=== PATIENT | female | born 1935 | race Caucasian/White ===

== ENCOUNTER 2017-07-22 11:28 | Inpatient (IN) | payer MEDICARE ==
[~2017-07-22] VITALS: Ht 162.6 cm; Wt 48.5 kg
--- NOTE | 2017-07-22 11:28 | NUR ---
[id number] FROM [facility] FOR SYNCOPE, PT FELL FACE FIRST PER EMS REPORT. HEMATOMA NOTED ON FOREHEAD
[2017-07-22 12:20] LABS: BASOPHILS # (AUTO) 0.1 /CMM (0.0-0.2); BASOPHILS % (AUTO) 0.6 % (0.0-2.0); EOSINOPHILS # (AUTO) 0.1 /CMM (0.0-0.7); EOSINOPHILS % (AUTO) 0.9 % (0.0-6.0); HEMATOCRIT 34 % (33-45); HEMOGLOBIN 11.7 g/dL (11.5-14.8); LYMPHOCYTES # (AUTO) 1.3 /CMM (0.8-4.8); LYMPHOCYTES % (AUTO) 13.2 % (20.0-44.0); MEAN CORPUSCULAR HEMOGLOBIN 30 PG (26.0-33.0); MEAN CORPUSCULAR HGB CONC 34 g/dl (31.0-36.0); MEAN CORPUSCULAR VOLUME 89 fL (82-100); MONOCYTES # (AUTO) 0.5 /CMM (0.1-1.30); NEUTROPHILS # (AUTO) 7.8 /CMM (1.8-8.9); NEUTROPHILS % (AUTO) 80.3 % (43.0-81.0); PLATELET COUNT (AUTO) 481 /CMM (150-450); RED BLOOD CELL COUNT(AUTO) 3.88 MIL/uL (4.0-5.2); WHITE BLOOD COUNT (AUTO) 9.8 K/uL (4.3-11.0)
[2017-07-22 12:34] LABS: CALCIUM, SERUM 9.1 mg/dL (8.5-10.1); CARBON DIOXIDE 28 mmol/L (21-32); CHLORIDE 100 mmol/L (98-107); CREATININE 0.8 mg/dL (0.6-1.3); GLUCOSE 98 mg/dL (74-106); POTASSIUM 3.5 mmol/L (3.5-5.1); SODIUM SERUM 137 mmol/L (136-145); UREA NITROGEN, BLOOD 16 mg/dL (7-18)
[2017-07-22 12:35] LABS: INR 0.91 (0.87-1.13)
[2017-07-22 12:39] LABS: ALANINE AMINOTRANSFERASE 14 U/L (12-78); ALBUMIN 2.8 g/dL (3.4-5.0); ALKALINE PHOSPHATASE 88 U/L (46-116); ASPARTATE AMINOTRANSFERASE 17 U/L (15-37); BILIRUBIN,TOTAL 0.2 mg/dL (0.2-1.0); TOTAL PROTEIN, SERUM 8.1 g/dL (6.4-8.2); TROPONIN I < 0.017 ng/mL (0.00-0.056)
[2017-07-22] MEDS ORDERED: DEXT15DR6 OP (12:47)
[2017-07-22] MEDS ORDERED: CYAN10009 PO (12:47)
[2017-07-22] MEDS ORDERED: GABA-532 PO (12:47)
[2017-07-22] MEDS ORDERED: DOCU-141 PO (12:47)
[2017-07-22] MEDS ORDERED: CALC-883 PO (12:47)
[2017-07-22] MEDS ORDERED: SENN-167 PO (12:47)
[2017-07-22] MEDS ORDERED: MEMA1CAP3 PO (12:47)
[2017-07-22] MEDS ORDERED: LIDOCAINE 2% 20 ML MDV TP ONE (13:00)
[2017-07-22 14:00] VITALS: BP 142/69
--- NOTE | 2017-07-22 14:00 | NUR ---
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 WAS BROUGHT BY EMERGENCY DEPARTMENT IN A GURNEY. PT. A&OX2-3, AND FORGETFUL. BREATHING UNLABORED ON ROOM AIR. NO S/S OF ACUTE DISTRESS.
--- NOTE | 2017-07-22 14:11 | NUR ---
REPORT GIVEN TO TOMASZ HERNÁNDEZ FOR PHI
[2017-07-22] MEDS ORDERED: IV NS 0.9% 1,000 ML IV PRN (14:26)
[2017-07-22] MEDS ORDERED: MAGNESIUM HYDROXIDE 30 ML UDC PO PRN (14:30)
[2017-07-22] MEDS ORDERED: Z GUARD REMEDY 2 OZ OINT TP PRN (14:30)
[2017-07-22] MEDS ORDERED: ACETAMINOPHEN 325 MG TABLET PO PRN (14:30)
[2017-07-22] MEDS ORDERED: ONDANSETRON HCL/PF 4 MG/2 ML VIAL IVP PRN (14:30)
[2017-07-22] MEDS ORDERED: MAG HYDROX/AL HYDROX/SIMETH 30 ML UDC PO PRN (14:30)
[2017-07-22] MEDS ORDERED: CEFTRIAXONE 1GM BAG (ER ONLY) 1 GM/50 ML PIGGYBACK IV ONE (15:00)
[2017-07-22 15:59] LABS: IRON, SERUM 20 ug/dl (50-175); TOTAL IRON BINDING CAPACITY 259 ug/dl (250-450)
--- NOTE | 2017-07-22 16:00 | NUR ---
RN NOTES AZIZA CALLED FROM [facility], TO REPORT THAT PT. HAS A CONSERVATOR KAYLAN PEERZ PHONE NUMBER, . LUCIA'S CALL BACK NUMBER [phone].
[2017-07-22] MEDS: ENOXAPARIN SODIUM 40 MG/0.4 ML DISP.SYRIN SQ SCH (16:15)
[2017-07-22] MEDS: DOCUSATE SODIUM 100 MG CAPSULE PO SCH (18:24)
[2017-07-22] MEDS: MEMANTINE HCL 5 MG TABLET PO SCH (18:24)
--- NOTE | 2017-07-22 19:00 | NUR ---
COOK JELLY/CLOSING NOTES PT. IS IN BED A&OX2-3, AND FORGETFUL WITH A 1:1 SITTER AT BEDSIDE. TELE MONITOR READING SINUS RHYTHM 63 BPM. IV FLUIDS RUNNING AT 75 ML/HR. NO S/S OF ACUTE DISTRESS. BED IS IN LOWEST AND LOCKED POSITION. 2 SIDE RAILS UP, AND INSTRUCTED PT. TO USE CALL LIGHT FOR ASSISTANCE. ALL NEEDS MET. PT.'S EYE GLASSES ARE AT BEDSIDE. WILL ENDORSE REPORT TO NURSE.
[2017-07-22 19:04] LABS: APPEARANCE,URINE CLEAR (CLEAR); BILIRUBIN,URINE NEGATIVE (NEGATIVE); BLOOD, URINE TRACE-INTA Ery/uL (NEGATIVE); COLOR,URINE YELLOW (YELLOW); KETONES,URINE NEGATIVE (NEGATIVE); LEUKOCYTE ESTERASE ,URINE NEGATIVE (NEGATIVE); NITRITE, URINE NEGATIVE (NEGATIVE); PH,URINE 7.5 (5.0-8.0); PROTEIN,URINE NEGATIVE (NEGATIVE); UGLUCOSE NEGATIVE (NEGATIVE); UROBILINOGEN,URINE 0.2 EU/dL (0.2)
[2017-07-22 19:11] LABS: BACTERIA,URINE None seen /HPF (None Seen); RBC,URINE 0-2 /HPF (0-2); SQUAMOUS EPITHELIAL CELL,UR Few /HPF (None Seen); WBC,URINE 0-2 /HPF (0-3)
--- NOTE | 2017-07-22 19:30 | NUR ---
POPULATION HEALTH MANAGER NOTE RECEIVED PATIENT AWAKE, ALERT AND ORIENTED IN BED. DENIES ANY PAIN OR DISCOMFORT. SITTER AT BEDSIDE. IV SITE INTACT, WITH FLUIDS RUNNING ORDERED. BED LOCKED AND IN LOWEST POSITION.
[2017-07-22] MEDS: DONEPEZIL 5 MG TABLET PO SCH (21:39)
[2017-07-22] MEDS: HYDROCODONE/APAP 5/325MG 1 EACH TABLET PO PRN (21:39)
[2017-07-22 22:00] VITALS: BP 139/85
--- NOTE | 2017-07-23 07:30 | NUR ---
RN OPENING NOTES RECEIVED PATIENT IN BED, RESPONSIVE, A/O X2, FORGETFUL. NO ACUTE DISTRESS, NO SOB NOTED, DENIES PAIN OR DISCOMFORT. IV SITE INTACT AND PATENT. SITTER AT BEDSIDE FOR SAFETY. BED IN LOW LOCKED POSITION, SIDERAILS UPX2, SEMIFOWLERS, CALL LIGHT IN REACH. WILL CONTINUE TO MONITOR ACCORDINGLY.
[2017-07-23 07:41] LABS: BASOPHILS % (AUTO) 0.6 % (0.0-2.0); EOSINOPHILS % (AUTO) 0.6 % (0.0-6.0); HEMATOCRIT 31 % (33-45); HEMOGLOBIN 10.4 g/dL (11.5-14.8); LYMPHOCYTES # (AUTO) 1.2 /CMM (0.8-4.8); LYMPHOCYTES % (AUTO) 18.4 % (20.0-44.0); MEAN CORPUSCULAR HEMOGLOBIN 31 PG (26.0-33.0); MEAN CORPUSCULAR HGB CONC 34 g/dl (31.0-36.0); MEAN CORPUSCULAR VOLUME 91 fL (82-100); MONOCYTES # (AUTO) 0.5 /CMM (0.1-1.30); MONOCYTES % (AUTO) 7.4 % (2.0-12.0); NEUTROPHILS # (AUTO) 4.9 /CMM (1.8-8.9); PLATELET COUNT (AUTO) 393 /CMM (150-450); RDW COEFFICIENT OF VARIATION 13.1 (11.5-15.0); RED BLOOD CELL COUNT(AUTO) 3.39 MIL/uL (4.0-5.2); WHITE BLOOD COUNT (AUTO) 6.8 K/uL (4.3-11.0)
[2017-07-23 08:00] VITALS: BP 134/59
[2017-07-23 08:12] LABS: CHOLESTEROL 170 mg/dL (<200); HDL CHOLESTEROL 65 mg/dL (40-60); LDL 95 mg/dL (0-99); THYROID STIMULATING HORMONE 0.613 uIU/mL (0.358-3.74); TRIGLYCERIDES 81 mg/dL (30-150)
[2017-07-23 08:14] LABS: CALCIUM, SERUM 8.7 mg/dL (8.5-10.1); CARBON DIOXIDE 27 mmol/L (21-32); CHLORIDE 107 mmol/L (98-107); CREATININE 0.7 mg/dL (0.6-1.3); GLUCOSE 98 mg/dL (74-106); MAGNESIUM 2.4 mg/dL (1.8-2.4); POTASSIUM 3.9 mmol/L (3.5-5.1); SODIUM SERUM 141 mmol/L (136-145); UREA NITROGEN, BLOOD 13 mg/dL (7-18)
[2017-07-23] MEDS: SENNOSIDES 8.6 MG TABLET PO SCH (08:46)
[2017-07-23] MEDS: DOCUSATE SODIUM 100 MG CAPSULE PO SCH ×2 (08:46→16:28)
[2017-07-23] MEDS: MEMANTINE HCL 5 MG TABLET PO SCH ×2 (08:46→16:28)
[2017-07-23 09:44] LABS: TROPONIN I < 0.017 ng/mL (0.00-0.056)
[2017-07-23 09:58] LABS: THYROID STIMULATING HORMONE 0.633 uIU/mL (0.358-3.74)
[2017-07-23 16:00] VITALS: BP 140/72
[2017-07-23] MEDS: SOD FERRIC GLUC 125 MG in IV NS 0.9% 100 ML IV SCH (16:22)
--- NOTE | 2017-07-23 16:34 | NUR ---
RN NOTES SPOKE AND VERIFY WITH KAITY ERVIN FROM [facility], PATIENT IS FULL CODE. PATIENT HAS NEW CONSERVATOR, KAYLAN PEREZ [phone]. NOTIFIED CASE MGMT.
[2017-07-23] MEDS: IV NS 0.9% 1,000 ML IV PRN (16:37)
--- NOTE | 2017-07-23 19:20 | NUR ---
RN NOTES UNABLE TO GET ORTHOSTATICS TODAY. PATIENT KEPT REFUSING.
--- NOTE | 2017-07-23 19:30 | NUR ---
RN CLOSING NOTES PATIENT IN BED RESTING. NO ACUTE DISTRESS, NO SOB NOTED. NO S/S OF PAIN OR DISCOMFORT. ALL NEEDS ATTENDED AND PROVIDED. SITTER ON BEDSIDE FOR SAFETY. BED IN LOCKED, LOW POSITION, CALL LIGHT IN REACH. ENDORSED TO NIGHT RN FOR PHI.
[2017-07-23 20:00] VITALS: BP 124/65
[2017-07-23] MEDS: ENOXAPARIN SODIUM 40 MG/0.4 ML DISP.SYRIN SQ SCH (21:34)
[2017-07-23] MEDS: DONEPEZIL 5 MG TABLET PO SCH (21:35)
--- NOTE | 2017-07-23 22:14 | NUR ---
RN OPENING NOTES: RECEIVED PT FROM BETTY GUO IN BED WITH SITTER AT BEDSIDE. PT ASLEEP AT THIS TIME. PT HAS R AC #22G WITH NS AT 50ML/HR BEING INFUSED. CALL LIGHT WITHIN PT'S REACH. BED KEPT IN LOW, LOCKED POSITION, AND SIDE RAILS X 2UP. WILL CONTINUE TO MONITOR PT.
--- NOTE | 2017-07-23 22:35 | NUR ---
RN NOTES: ENDORSED TO ANNA. BETTY
--- NOTE | 2017-07-23 23:00 | NUR ---
PATIENT IS ASLEEP AT THIS TIME, SITTER AT THE BEDSIDE. VSS, AFEBRILE CONTINUE TO MONITOR
[2017-07-24] MEDS: HYDROCODONE/APAP 5/325MG 1 EACH TABLET PO PRN (03:53)
[2017-07-24 08:00] VITALS: BP 128/77
[2017-07-24] MEDS: SENNOSIDES 8.6 MG TABLET PO SCH (08:43)
[2017-07-24] MEDS: DOCUSATE SODIUM 100 MG CAPSULE PO SCH ×2 (08:43→18:35)
[2017-07-24] MEDS: MEMANTINE HCL 5 MG TABLET PO SCH ×2 (08:44→18:35)
[2017-07-24 09:00] VITALS: BP_SYST 100; BP_SYST 111; BP_SYST 120; BP_DIAS 60; BP_DIAS 63; BP_DIAS 77
--- NOTE | 2017-07-24 09:00 | NUR ---
RN NOTES PER DR NIESLEN, GET ORTHOSTATICS BP EVERY MORNING
[2017-07-24 09:03] LABS: BASOPHILS % (AUTO) 0.6 % (0.0-2.0); EOSINOPHILS # (AUTO) 0.1 /CMM (0.0-0.7); EOSINOPHILS % (AUTO) 1.2 % (0.0-6.0); HEMATOCRIT 32 % (33-45); HEMOGLOBIN 10.7 g/dL (11.5-14.8); LYMPHOCYTES # (AUTO) 1.3 /CMM (0.8-4.8); LYMPHOCYTES % (AUTO) 17.8 % (20.0-44.0); MEAN CORPUSCULAR HEMOGLOBIN 30 PG (26.0-33.0); MEAN CORPUSCULAR HGB CONC 34 g/dl (31.0-36.0); MEAN CORPUSCULAR VOLUME 89 fL (82-100); MONOCYTES # (AUTO) 0.5 /CMM (0.1-1.30); MONOCYTES % (AUTO) 6.4 % (2.0-12.0); NEUTROPHILS # (AUTO) 5.3 /CMM (1.8-8.9); PLATELET COUNT (AUTO) 418 /CMM (150-450); RDW COEFFICIENT OF VARIATION 12.1 (11.5-15.0); RED BLOOD CELL COUNT(AUTO) 3.55 MIL/uL (4.0-5.2); WHITE BLOOD COUNT (AUTO) 7.2 K/uL (4.3-11.0)
[2017-07-24 09:16] LABS: ALANINE AMINOTRANSFERASE 16 U/L (12-78); ALBUMIN 2.3 g/dL (3.4-5.0); ALKALINE PHOSPHATASE 73 U/L (46-116); ASPARTATE AMINOTRANSFERASE 15 U/L (15-37); BILIRUBIN,TOTAL 0.3 mg/dL (0.2-1.0); CALCIUM, SERUM 8.8 mg/dL (8.5-10.1); CARBON DIOXIDE 25 mmol/L (21-32); CHLORIDE 107 mmol/L (98-107); CREATININE 0.7 mg/dL (0.6-1.3); GLUCOSE 100 mg/dL (74-106); MAGNESIUM 2.3 mg/dL (1.8-2.4); PHOSPHORUS 3.3 mg/dL (2.5-4.9); SODIUM SERUM 142 mmol/L (136-145); TOTAL PROTEIN, SERUM 7.2 g/dL (6.4-8.2); UREA NITROGEN, BLOOD 18 mg/dL (7-18)
[2017-07-24 09:17] LABS: TROPONIN I < 0.017 ng/mL (0.00-0.056)
[2017-07-24] MEDS ORDERED: ERGOCALCIFEROL (VITAMIN D 2) 50,000 UNIT CAPSULE PO SCH (09:30)
[2017-07-24] MEDS: IV NS 0.9% 1,000 ML IV PRN (10:23)
--- NOTE | 2017-07-24 11:30 | NUR ---
RN NOTES NOTIFIED DR VIVAS FOR NEW CT HEAD RESULT.
--- NOTE | 2017-07-24 12:08 | NUR ---
WOUND CARE CONSULT: PT PRESENTS WITH FACIAL BRUISING AND SWELLING AND DRY ABRASIONS, PRESENT ON ADMISSION. PT IS CONFUSED BUT CONTINENT AT THIS TIME. PT ABLE TO ASSIST WITH TURNING AND REPOSITIONING IN BED. DEFER TO MD FOR FACIAL INJURIES. CURRENT NADIRA SCORE IS 16. ALL SKIN PROTECTION MEASURES IN PLACE AND DISCUSSED WITH NURSING STAFF. WILL SEE PRN. MD IN AGREEMENT WITH PLAN OF CARE. Addendum: 07/24/17 at 1210 by GAGE HOPPER WNDNU Amended: Links added.
[2017-07-24] MEDS: CHOLECALCIFEROL 1,000 UNIT TABLET (VIT D3) PO SCH (14:42)
[2017-07-24] MEDS: SOD FERRIC GLUC 125 MG in IV NS 0.9% 100 ML IV SCH (14:48)
--- NOTE | 2017-07-24 17:18 | NUR ---
RN NOTES NOTIFIED DR VIVAS THAT CANT GET A HOLD OF DR LIAO REGARDING NEW CT ABNORMAL RESULT.
[2017-07-24 20:00] VITALS: BP_SYST 111; BP_SYST 148; BP_DIAS 66; BP_DIAS 70
[2017-07-24] MEDS: ENOXAPARIN SODIUM 40 MG/0.4 ML DISP.SYRIN SQ SCH (20:34)
[2017-07-24] MEDS: DONEPEZIL 5 MG TABLET PO SCH (22:48)
[2017-07-25] MEDS: IV NS 0.9% 1,000 ML IV PRN (02:04)
[2017-07-25 04:00] VITALS: BP 115/53
--- NOTE | 2017-07-25 05:49 | NUR ---
RN CLOSING NOTES PATIENT IN BED RESTING. NO SOB. NO ACUTE DISTRESS. RESPIRATION EVEN AND UNLABORED. NO S/S OF PAIN OR DISCOMFORT AT THIS TIME. ALL NEEDS ATTENDED AND PROVIDED. BED IN LOCKED, LOW POSITION, CALL LIGHT WITHIN REACH. ENDORSED TO NEXT SHIFT NURSE FOR PHI.
--- NOTE | 2017-07-25 07:10 | NUR ---
MS RN OPENING NOTES RECEIVED PT FROM NIGHTSHIFT NURSE IN STABLE CONDITION. PT UIS A/O X2 AND CONFUSED. NO SOB OR SIGNS OF DISTRESS NOTED. IV NOTED TO BE PATENT AND INTACT. NO REDNESS OR SIGNS OF INFILTRATION NOTED. BED IN LOW LOCKED POSITION, SIDE RAILS UP X2, CALL LIGHT WITHIN REACH, 1:1 SITTER AT BEDSIDE. WILL CONTINUE TO MONITOR
[2017-07-25 08:00] VITALS: BP 118/55
[2017-07-25 08:01] LABS: CALCIUM, SERUM 8.4 mg/dL (8.5-10.1); CARBON DIOXIDE 24 mmol/L (21-32); CHLORIDE 109 mmol/L (98-107); CREATININE 0.7 mg/dL (0.6-1.3); GLUCOSE 104 mg/dL (74-106); PHOSPHORUS 2.7 mg/dL (2.5-4.9); POTASSIUM 3.8 mmol/L (3.5-5.1); SODIUM SERUM 142 mmol/L (136-145); UREA NITROGEN, BLOOD 15 mg/dL (7-18)
[2017-07-25] MEDS: MEMANTINE HCL 5 MG TABLET PO SCH ×2 (09:06→16:49)
[2017-07-25] MEDS: DOCUSATE SODIUM 100 MG CAPSULE PO SCH ×2 (09:06→16:43)
[2017-07-25] MEDS: SENNOSIDES 8.6 MG TABLET PO SCH (09:06)
[2017-07-25] MEDS: CHOLECALCIFEROL 1,000 UNIT TABLET (VIT D3) PO SCH (09:07)
[2017-07-25] MEDS: SOD FERRIC GLUC 125 MG in IV NS 0.9% 100 ML IV SCH (14:18)
[2017-07-25 16:00] VITALS: BP 116/58
--- NOTE | 2017-07-25 16:58 | NUR ---
MS RN NOTES AN ATTEMPT WAS MADE TO CONTACT DR. LIAO IN REGARDS TO PT'S HEAD CT WITH TO NO SUCCESS. DR VIVAS WAS MADE AWARE ANS STATES "CONTINUE TO HOLD LOVENOX, AND ORDER ANOTHER HEAD CT WITHOUT CONTRAST IN THE AM". WILL INPUT ORDER AND CONTINUE TO MONITOR FOR CHANGES IN MENTAL STATUS
--- NOTE | 2017-07-25 17:31 | NUR ---
MS RN NOTES DR. LIAO CALLED IN REGARDS TO PT'S CT. PER YANNI, SHE IS IN AGREEMENT TO FOLLOW UP CT AND STATES TO CONTINUE TO HOLD ANTICOAGULANTS
--- NOTE | 2017-07-25 18:38 | NUR ---
MS RN CLOSING NOTES P REMAINS STABLE. NO ACUTE CHANGES IN MENTAL STATUS NOTED DURING SHIFT. ALL NEEDS ANTICIPATED FOR AND MET. ALL DUE MEDS GIVEN. SITTER REMAINS AT BEDSIDE. WILL ENDORSE TO NIGHTSHIFT NURSE FOR PHI
--- NOTE | 2017-07-25 19:25 | NUR ---
MS/RN OPENING NOTES PT RECEIVED RESTING COMFORTABLY IN BED. A/OX2, ON ROOM AIR, BREATHING EVEN AND UNLABORED. IN NO APPARENT DISTRESS, SOB OR PAIN. IV TO RAC PATENT AND INTACT. PER DAY SHIFT RN WITH ORDERS TO HOLD LOVENOX DUE TO SUBDURAL HEMATOMA. REPEAT HEAD CT IN AM. BED IN LOW/LOCKED POSITION WITH CALL LIGHT IN REACH. SIDE RAILS UPX2, WILL CONTINUE TO MONITOR
[2017-07-25 20:00] VITALS: BP_SYST 100; BP_SYST 125; BP_DIAS 40; BP_DIAS 65
[2017-07-25] MEDS: ENOXAPARIN SODIUM 40 MG/0.4 ML DISP.SYRIN SQ SCH (21:00)
[2017-07-25] MEDS: DONEPEZIL 5 MG TABLET PO SCH (21:11)
--- NOTE | 2017-07-25 23:30 | NUR ---
MS/RN NOTES PT MOVED FROM ROOM 325-1 TO 307-1 ALL BELONGINGS MOVED WITH PATIENT. CALL LIGHT IN REACH. SIDE RAILS UPX3 AND BED ALARM ON FOR SAFETY. BED IN LOW/LOCKED POSITION.
--- NOTE | 2017-07-26 06:24 | NUR ---
MS/RN CLOSING NOTES PT ASLEEP, EASILY AROUSABLE TO NAME. A/OX2, CONFUSED. REORIENTED PRN. ON ROOM AIR, BREATHING EVEN AND UNLABORED. DENIES SOB OR PAIN AT THIS TIME. IV TO RFA PATENT AND INTACT. NO SIGNIFICANT CHANGES OVERNIGHT. MADE PT COMFORTABLE DURING SHIFT. ALL NEEDS MET. AMBULATORY WITH ASSIST. BED IN LOW/LOCKED POSITION WITH CALL LIGHT IN REACH. SIDE RAILS UPX3 WITH BED ALARM ON FOR SAFETY. WILL ENDORSE TO DAY SHIFT RN PHI.
[2017-07-26 06:39] LABS: BASOPHILS % (AUTO) 0.5 % (0.0-2.0); EOSINOPHILS # (AUTO) 0.1 /CMM (0.0-0.7); EOSINOPHILS % (AUTO) 1.6 % (0.0-6.0); HEMATOCRIT 31 % (33-45); HEMOGLOBIN 10.5 g/dL (11.5-14.8); LYMPHOCYTES # (AUTO) 1.6 /CMM (0.8-4.8); LYMPHOCYTES % (AUTO) 21.4 % (20.0-44.0); MEAN CORPUSCULAR HEMOGLOBIN 31 PG (26.0-33.0); MEAN CORPUSCULAR HGB CONC 34 g/dl (31.0-36.0); MEAN CORPUSCULAR VOLUME 90 fL (82-100); MONOCYTES # (AUTO) 0.6 /CMM (0.1-1.30); MONOCYTES % (AUTO) 7.8 % (2.0-12.0); NEUTROPHILS % (AUTO) 68.7 % (43.0-81.0); PLATELET COUNT (AUTO) 448 /CMM (150-450); RED BLOOD CELL COUNT(AUTO) 3.42 MIL/uL (4.0-5.2); WHITE BLOOD COUNT (AUTO) 7.3 K/uL (4.3-11.0)
[2017-07-26 06:51] LABS: CALCIUM, SERUM 8.8 mg/dL (8.5-10.1); CARBON DIOXIDE 26 mmol/L (21-32); CHLORIDE 107 mmol/L (98-107); CREATININE 0.7 mg/dL (0.6-1.3); GLUCOSE 108 mg/dL (74-106); MAGNESIUM 2.2 mg/dL (1.8-2.4); PHOSPHORUS 2.9 mg/dL (2.5-4.9); POTASSIUM 3.9 mmol/L (3.5-5.1); SODIUM SERUM 140 mmol/L (136-145); UREA NITROGEN, BLOOD 17 mg/dL (7-18)
--- NOTE | 2017-07-26 07:30 | NUR ---
received pt. this am,confused,asking questions over and over,bed alarm on.hep lock in place.
[2017-07-26 08:00] VITALS: BP 113/52
[2017-07-26] MEDS: CHOLECALCIFEROL 1,000 UNIT TABLET (VIT D3) PO SCH (08:23)
[2017-07-26] MEDS: SENNOSIDES 8.6 MG TABLET PO SCH (08:23)
[2017-07-26] MEDS: DOCUSATE SODIUM 100 MG CAPSULE PO SCH ×2 (08:23→17:21)
[2017-07-26] MEDS: MEMANTINE HCL 5 MG TABLET PO SCH ×2 (08:23→17:20)
[2017-07-26] MEDS: HYDROCODONE/APAP 5/325MG 1 EACH TABLET PO PRN (12:07)
[2017-07-26] MEDS: SOD FERRIC GLUC 125 MG in IV NS 0.9% 100 ML IV SCH (14:15)
--- NOTE | 2017-07-26 14:30 | NUR ---
pt removed heplock,leaking in bed.not restarted due to confusion and iv not needed till tomorrow.
[2017-07-26 16:00] VITALS: BP 115/60
--- NOTE | 2017-07-26 16:30 | NUR ---
dr. brown in.pt. continually getting oob.
--- NOTE | 2017-07-26 18:00 | NUR ---
no sanchez in status.
--- NOTE | 2017-07-26 19:30 | NUR ---
MS RN NOTES RECEIVED ON BED SLEEPING,AROUSABLE TO VERBAL STIMULI,BREATHING REGULAR,NOT IN ANY FORM DISTRESS.NO IV ACCESS,PER REPORT,IT WAS ACCIDENTALLY PULLED OUT.NOTED PERIORBITAL BRUISING DUE TO FALL.FALL PRECAUTION OBSERVED,BED ALARM TRIGGERED.WILL CONTINUE TO MONITOR STATUS.
[2017-07-26 20:00] VITALS: BP 104/58
[2017-07-26] MEDS: ENOXAPARIN SODIUM 40 MG/0.4 ML DISP.SYRIN SQ SCH (21:00)
--- NOTE | 2017-07-26 21:00 | NUR ---
MS RN NOTES DUE LOVENOX 40MG SQ HELD PER DR JOSÉ LUIS ROWAN SCALP HEMATOMA
[2017-07-26] MEDS: DONEPEZIL 5 MG TABLET PO SCH (21:52)
--- NOTE | 2017-07-27 05:30 | NUR ---
MS RN NOTES NEW SALINE LOCK PLACE ON LEFT FORE ARM #22, FLUSHED WITH NS AND KEPT PATENT.
--- NOTE | 2017-07-27 06:25 | NUR ---
MS RN NOTES SLEPT WELL AT NIGHT.STILL WITH FACIAL BRUISING AND LEFT BROW HEMATOMA.DENIES PAIN.NO FALL,NO INJURY.WILL ENDORSE TO DAY NURSE FOR PHI.
[2017-07-27 08:00] VITALS: BP_SYST 112; BP_SYST 121; BP_DIAS 47
--- NOTE | 2017-07-27 08:00 | NUR ---
RN NOTES RECEIVED PATIENT IN THE ROOM, RESTING , NO RESPIRATORY DISTRESS, V/S STABLE, CALL LIGHT WITHIN TO REACH, SAFETY PRECAUTION MAINTAINED ALL THE TIME.
[2017-07-27] MEDS: DOCUSATE SODIUM 100 MG CAPSULE PO SCH ×2 (08:18→17:05)
[2017-07-27] MEDS: MEMANTINE HCL 5 MG TABLET PO SCH ×2 (08:18→17:05)
[2017-07-27] MEDS: SENNOSIDES 8.6 MG TABLET PO SCH (08:18)
[2017-07-27] MEDS: CHOLECALCIFEROL 1,000 UNIT TABLET (VIT D3) PO SCH (08:19)
--- NOTE | 2017-07-27 09:00 | NUR ---
RN NOTES PATIENT IN THE BED EATING, A/O X2, FORGETFUL, SCHEDULED MEDICATION ADMINISTERED, V/S STABLE, PATIENT HAS A BRUISING ON FACE BUT REFUSED PAIN AT THIS TIME. ENCOURAGED TO EXPRESS FEELINGS AND CONCERNS, NEEDS ATTENDED AND ANTICIPATED, PATIENT FOCUSED GOING HOME. NEED CONSTANT REDIRECTION. CALL LIGHT WITHIN TO REACH, PATIENT AMBULATORY,CONTINENT, FALL PRECAUTION MONITORING, ENCOURAGED TO USE WALKER.
--- NOTE | 2017-07-27 13:46 | NUR ---
RN NOTES PATIENT GOING TO D/C SNF.
[2017-07-27] MEDS: SOD FERRIC GLUC 125 MG in IV NS 0.9% 100 ML IV SCH (15:43)
[2017-07-27 15:58] VITALS: BP 130/70
--- NOTE | 2017-07-27 18:06 | NUR ---
rn notes administered tylenol 650 mg po, prn for face pain 5/10, sebastián ued monitoring.
--- NOTE | 2017-07-27 18:11 | NUR ---
DISCHARGE NOTES PATIENT D/C AT THIS TIME GOING SNF, PATIENT A/O X1, CONFUSED. MED COMPLIANT, V/S STABLE, MEDICALLY STABLE. MED RECONCILIATION AND DISCHARGE ORDER REVIEWED AND EXPLAINED TO. REPORT GIVEN SNF RN. RN VERBALIZED UNDERSTANDING. BELONGING RETURNED BACK TO THE PATIENT. PICTURE TAKEN. PATIENT CUSTOMER ADVISOR BY AMBULANCE.
== END 2017-07-27 18:10 | DRG 73 ==
LOC: ER 11:34 → TELE 14:18 → MED 07-23 23:10 → TELE 07-25 22:55 → MED 07-25 22:55
PROVIDERS: ADMIT Internal Medicine; ATTEND Internal Medicine
DX: G90.8 Other disorders of autonomic nervous system (principal); G93.41 Metabolic encephalopathy; I62.03 Nontraumatic chronic subdural hemorrhage; E87.8 Other disorders of electrolyte and fluid balance, not elsewhere classified; E86.0 Dehydration; E44.1 Mild protein-calorie malnutrition; M48.02 Spinal stenosis, cervical region; G30.9 Alzheimer's disease, unspecified; F02.80 Dementia in other diseases classified elsewhere, unspecified severity, without behavioral disturbance, psychotic disturbance, mood disturbance, and anxiety; W19.XXXA Unspecified fall, initial encounter; R26.9 Unspecified abnormalities of gait and mobility; M81.0 Age-related osteoporosis without current pathological fracture; Z79.899 Other long term (current) drug therapy; E56.9 Vitamin deficiency, unspecified; R29.6 Repeated falls; J32.0 Chronic maxillary sinusitis; Y92.129 Unspecified place in nursing home as the place of occurrence of the external cause; I35.0 Nonrheumatic aortic (valve) stenosis; S00.03XA Contusion of scalp, initial encounter
CPT/HCPCS: 36415; 70450-TC; 70486-TC; 71045-TC; 72125-TC; 80048-TC; 80053-TC; 80061-TC; 80076-TC; 81000-TC; 82306; 82746; 83540-TC; 83735-TC; 84100-TC; 84439-TC; 84443-TC; 84484-TC; 85025-TC; 85730-TC; 87081-TC; 93307-TC; 95819-TC; 97110-TC; 97116-TC; 97530-TC; A4606; A6253; A6402; A6403; J1650; J2916; J7030; Z7610

== ENCOUNTER 2017-11-06 09:27 | Emergency (ER) | payer MEDICARE, MEDICAID ==
[~2017-11-06] VITALS: Ht 160 cm; Wt 49.0 kg
[~2017-11-06 09:27] MED LIST: CALC-883 PO; CYAN10009 PO; DEXT15DR6 OP; DOCU-141 PO; GABA-532 PO; MEMA1CAP3 PO; SENN-167 PO
--- NOTE | 2017-11-06 09:27 | NUR ---
CYNDY FROM [facility] C/O R EYEBROW LAC, R SHOULDER PAIN AND BOTH KNEE PAIN S/P UNWITNESSED GLF
[2017-11-06] MEDS ORDERED: LIDOCAINE 1% INJ 50 ML MDV IJ ONE (09:55)
[2017-11-06] MEDS: LIDOCAINE HCL/PF 1% 30 ML VIAL TP ONE (10:01)
--- NOTE | 2017-11-06 10:05 | NUR ---
PT TAKEN TO CT
[2017-11-06] MEDS ORDERED: TDAP [DIPH/PERTUSSIS/TET] 0.5 ML VIAL IM ONE (10:06)
[2017-11-06] MEDS: BACI/NEOM/POLY B OINT PKT 1 UDPKT PACKET TP ONE (10:07)
[2017-11-06 10:08] LABS: BASOPHILS % (AUTO) 0.2 % (0.0-2.0); EOSINOPHILS % (AUTO) 0.6 % (0.0-6.0); HEMATOCRIT 30 % (33-45); HEMOGLOBIN 10.2 g/dL (11.5-14.8); LYMPHOCYTES # (AUTO) 0.9 /CMM (0.8-4.8); LYMPHOCYTES % (AUTO) 13.5 % (20.0-44.0); MEAN CORPUSCULAR HGB CONC 34 g/dl (31.0-36.0); MEAN CORPUSCULAR VOLUME 87 fL (82-100); MONOCYTES # (AUTO) 0.5 /CMM (0.1-1.30); MONOCYTES % (AUTO) 7.1 % (2.0-12.0); NEUTROPHILS # (AUTO) 5.1 /CMM (1.8-8.9); NEUTROPHILS % (AUTO) 78.6 % (43.0-81.0); PLATELET COUNT (AUTO) 227 /CMM (150-450); RDW COEFFICIENT OF VARIATION 15.1 (11.5-15.0); RED BLOOD CELL COUNT(AUTO) 3.44 MIL/uL (4.0-5.2); WHITE BLOOD COUNT (AUTO) 6.5 K/uL (4.3-11.0)
[2017-11-06] MEDS: TDAP [DIPH/PERTUSSIS/TET] 0.5 ML VIAL IM ONE (10:12)
[2017-11-06 10:17] LABS: CALCIUM, SERUM 8.2 mg/dL (8.5-10.1); CARBON DIOXIDE 28 mmol/L (21-32); CHLORIDE 107 mmol/L (98-107); CREATININE 0.8 mg/dL (0.6-1.3); GLUCOSE 109 mg/dL (74-106); SODIUM SERUM 142 mmol/L (136-145); UREA NITROGEN, BLOOD 20 mg/dL (7-18)
[2017-11-06 10:20] LABS: INR 0.94 (0.85-1.15)
[2017-11-06 10:25] LABS: TROPONIN I < 0.017 ng/mL (0.00-0.056)
--- NOTE | 2017-11-06 11:53 | NUR ---
CALLED [facility] TO ARRANGE A BLS TRANSPORT TO [facility]. SPOKE WITH DISPATCHER BHARATHI AND WAS GIVEN A 25-30 MIN ETA MONEY EXAMINER TIME. TRIP #: [id number].
[2017-11-06 12:20] VITALS: BP 117/57
== END 2017-11-06 12:20 | disposition home or self-care (01) ==
LOC: ER 09:29
DX: S01.111A Laceration without foreign body of right eyelid and periocular area, initial encounter (principal); S40.011A Contusion of right shoulder, initial encounter; T79.7XXA Traumatic subcutaneous emphysema, initial encounter; F02.80 Dementia in other diseases classified elsewhere, unspecified severity, without behavioral disturbance, psychotic disturbance, mood disturbance, and anxiety; G30.9 Alzheimer's disease, unspecified; I70.0 Atherosclerosis of aorta; W18.30XA Fall on same level, unspecified, initial encounter; Y93.89 Activity, other specified; Y92.89 Other specified places as the place of occurrence of the external cause; Y99.8 Other external cause status
CPT/HCPCS: 36415; 70450-TC; 71045-TC; 73030-TC; 80048-TC; 84484-TC; 85025-TC; 85730-TC; 90715; A4606; A6403; J3490; Z7610

== ENCOUNTER 2018-06-26 16:05 | Inpatient (IN) | payer MEDICARE, MEDICAID ==
[~2018-06-26] VITALS: Ht 157.5 cm; Wt 48.1 kg
[~2018-06-26 16:05] MED LIST changes: -SENN-167 PO; +SENN-168 PO
--- NOTE | 2018-06-26 16:10 | NUR ---
PT BIBRA SENT FROM [facility] BY ABE RODRIGUEZ FOR WEAKNESS X2 DAYS, PT IS AAOX4, NOT IN RESPIRATORY DISTRESS, V/S STABLE, KEPT RESTED AND COMFORTABLE, WILL CONTINUE TO MONITOR.
[2018-06-26] MEDS ORDERED: IV NS 0.9% 500 ML BAG IV ONE (16:30)
[2018-06-26 16:51] LABS: BASOPHILS % (AUTO) 0.4 % (0.0-2.0); HEMATOCRIT 33 % (33-45); HEMOGLOBIN 10.9 g/dL (11.5-14.8); LYMPHOCYTES # (AUTO) 2.2 /CMM (0.8-4.8); LYMPHOCYTES % (AUTO) 20.9 % (20.0-44.0); MEAN CORPUSCULAR HGB CONC 33 g/dl (31.0-36.0); MEAN CORPUSCULAR VOLUME 89 fL (82-100); NEUTROPHILS # (AUTO) 7.4 /CMM (1.8-8.9); NEUTROPHILS % (AUTO) 68.7 % (43.0-81.0); PLATELET COUNT (AUTO) 344 /CMM (150-450); RED BLOOD CELL COUNT(AUTO) 3.71 MIL/uL (4.0-5.2); WHITE BLOOD COUNT (AUTO) 10.7 K/uL (4.3-11.0)
--- NOTE | 2018-06-26 17:02 | NUR ---
PT IS BACK FROM THE CT SCAN.
[2018-06-26] MEDS ORDERED: CHOL100044 PO (17:08)
[2018-06-26] MEDS ORDERED: VALP250C PO (17:08)
[2018-06-26] MEDS ORDERED: FERR325T23 PO (17:08)
[2018-06-26] MEDS ORDERED: BISA10SU8 RC (17:08)
[2018-06-26] MEDS ORDERED: MEMA10TA PO (17:08)
[2018-06-26] MEDS ORDERED: QUET25TA PO ×2 (17:08)
[2018-06-26] MEDS ORDERED: NA P133E RC (17:08)
[2018-06-26] MEDS ORDERED: MAGN400O6 PO (17:08)
[2018-06-26] MEDS ORDERED: ACET-868 PO (17:08)
[2018-06-26] MEDS ORDERED: MELO-105 PO (17:08)
[2018-06-26] MEDS ORDERED: DONE10TA44 PO (17:08)
[2018-06-26 17:18] LABS: SERUM AMMONIA 10 umol/L (11-32)
[2018-06-26 17:30] LABS: THYROID STIMULATING HORMONE 1.931 uIU/mL (0.358-3.74)
[2018-06-26 17:35] LABS: CALCIUM, SERUM 9.4 mg/dL (8.5-10.1); CARBON DIOXIDE 25 mmol/L (21-32); CHLORIDE 103 mmol/L (98-107); CREATININE 0.9 mg/dL (0.6-1.3); GLUCOSE 92 mg/dL (74-106); SODIUM SERUM 140 mmol/L (136-145); UREA NITROGEN, BLOOD 27 mg/dL (7-18)
[2018-06-26 17:40] LABS: ALANINE AMINOTRANSFERASE 18 U/L (12-78); ALBUMIN 2.4 g/dL (3.4-5.0); ALKALINE PHOSPHATASE 71 U/L (46-116); ASPARTATE AMINOTRANSFERASE 29 U/L (15-37); BILIRUBIN,TOTAL 0.2 mg/dL (0.2-1.0); TOTAL PROTEIN, SERUM 7.3 g/dL (6.4-8.2)
--- NOTE | 2018-06-26 18:12 | NUR ---
GOT BED 309-1
--- NOTE | 2018-06-26 18:28 | NUR ---
URINE COLLECTED AND SENT TO LAB.
[2018-06-26] MEDS ORDERED: NA PHOS,M-B/NA PHOS,DI-BA 1 EA ENEMA RC PRN ×2 (18:30→20:30)
[2018-06-26] MEDS ORDERED: BISACODYL SUPP (10 MG) 10 MG/SUPP.RECT SUPP.RECT RC PRN ×2 (18:30→20:30)
[2018-06-26] MEDS ORDERED: MAGNESIUM HYDROXIDE 30 ML UDC PO PRN ×2 (18:30→20:30)
[2018-06-26] MEDS ORDERED: ACETAMINOPHEN 325 MG TABLET PO PRN ×2 (18:30→20:30)
--- NOTE | 2018-06-26 18:57 | NUR ---
ENDORSED TO BETTY BAR FOR PHI.
[2018-06-26 19:06] LABS: APPEARANCE,URINE CLEAR (CLEAR); BILIRUBIN,URINE NEGATIVE (NEGATIVE); BLOOD, URINE 1+ Ery/uL (NEGATIVE); COLOR,URINE YELLOW (YELLOW); KETONES,URINE 1+ (NEGATIVE); LEUKOCYTE ESTERASE ,URINE NEGATIVE (NEGATIVE); NITRITE, URINE NEGATIVE (NEGATIVE); PROTEIN,URINE NEGATIVE (NEGATIVE); UGLUCOSE NEGATIVE (NEGATIVE); UROBILINOGEN,URINE 0.2 EU/dL (0.2)
[2018-06-26 19:17] LABS: BACTERIA,URINE Rare /HPF (None Seen); SQUAMOUS EPITHELIAL CELL,UR Rare /HPF (None Seen); WBC,URINE NONE SEEN /HPF (0-3)
[2018-06-26 19:18] LABS: MUCUS,URINE Rare /LPF (None Seen)
--- NOTE | 2018-06-26 19:30 | NUR ---
RECEIVED PATIENT FROM ER FOR DX ALOC. AO X 1, VERBALLY RESPONSIVE. ABLE TO FOLLOW INSTRUCTIONS. NO ACUTE DISTRESS NOTED. NO SIGNS OF PAIN NOTED. IV SITE PATENT, INTACT; FLUSHED. SKIN ASSESSMENT DONE. SAFETY REMINDERS GIVEN. ON LOW BED WITH BILATERAL UPPER SIDE RAILS UP. CALL MA WITHIN EASY REACH. WILL CONTINUE TO MONITOR.
[2018-06-26 20:30] VITALS: BP 120/56
[2018-06-26] MEDS ORDERED: QUETIAPINE FUMARATE 25 MG TABLET PO SCH (22:00)
[2018-06-26] MEDS ORDERED: SENNOSIDES 8.6 MG TABLET PO SCH (22:00)
[2018-06-26] MEDS: SENNOSIDES 8.6 MG TABLET PO SCH (22:08)
[2018-06-26] MEDS: QUETIAPINE FUMARATE 25 MG TABLET PO SCH (22:08)
[2018-06-26] MEDS: DONEPEZIL 5 MG TABLET PO SCH (22:50)
[2018-06-26] MEDS: VALPROIC ACID 250 MG/5 ML UDC PO SCH (22:50)
[2018-06-26 23:00] VITALS: BP 120/56
[2018-06-27] VITALS: BP 106/51
[2018-06-27] MEDS ORDERED: HYDROCODONE/APAP 5/325MG 1 EACH TABLET PO PRN
[2018-06-27] MEDS ORDERED: ZOLPIDEM TARTRATE 5 MG TABLET PO PRN
[2018-06-27] MEDS ORDERED: Z GUARD REMEDY 2 OZ OINT TP PRN
[2018-06-27] MEDS ORDERED: MAG HYDROX/AL HYDROX/SIMETH 30 ML UDC PO PRN
[2018-06-27] MEDS ORDERED: ONDANSETRON HCL/PF 4 MG/2 ML VIAL IVP PRN
[2018-06-27] MEDS ORDERED: ACETAMINOPHEN 325 MG TABLET PO PRN
[2018-06-27] MEDS ORDERED: MAGNESIUM HYDROXIDE 30 ML UDC PO PRN
--- NOTE | 2018-06-27 | NUR ---
TELE READING SINUS RHYTHM HR 70
[2018-06-27 04:00] VITALS: BP 108/65
[2018-06-27] MEDS: IV NS 0.9% 1,000 ML IV PRN (04:10)
--- NOTE | 2018-06-27 06:00 | NUR ---
PATIENT ASLEEP, EASILY AROUSABLE. RESPIRATIONS EVEN. DUE MEDS GIVEN WITH NO ASE NOTED. IVF INFUSING ORDERED. NO SIGNS OF PAIN NOTED. NEEDS ATTENDED. SAFETY PRECAUTIONS AND COMFORT MEASURES IN PLACE. WILL GIVE REPORT TO DAY SHIFT FOR CONTINUITY OF CARE.
[2018-06-27 06:41] LABS: BASOPHILS % (AUTO) 0.6 % (0.0-2.0); EOSINOPHILS % (AUTO) 1.9 % (0.0-6.0); HEMATOCRIT 29 % (33-45); HEMOGLOBIN 9.6 g/dL (11.5-14.8); LYMPHOCYTES # (AUTO) 1.5 /CMM (0.8-4.8); LYMPHOCYTES % (AUTO) 25.3 % (20.0-44.0); MEAN CORPUSCULAR HGB CONC 33 g/dl (31.0-36.0); MEAN CORPUSCULAR VOLUME 88 fL (82-100); MONOCYTES # (AUTO) 0.5 /CMM (0.1-1.30); MONOCYTES % (AUTO) 9.3 % (2.0-12.0); NEUTROPHILS # (AUTO) 3.7 /CMM (1.8-8.9); NEUTROPHILS % (AUTO) 62.9 % (43.0-81.0); PLATELET COUNT (AUTO) 272 /CMM (150-450); RED BLOOD CELL COUNT(AUTO) 3.24 MIL/uL (4.0-5.2); WHITE BLOOD COUNT (AUTO) 5.9 K/uL (4.3-11.0)
[2018-06-27 07:03] LABS: CALCIUM, SERUM 8.5 mg/dL (8.5-10.1); CARBON DIOXIDE 26 mmol/L (21-32); CHLORIDE 107 mmol/L (98-107); CREATININE 0.7 mg/dL (0.6-1.3); GLUCOSE 114 mg/dL (74-106); PHOSPHORUS 3.3 mg/dL (2.5-4.9); POTASSIUM 3.5 mmol/L (3.5-5.1); SODIUM SERUM 142 mmol/L (136-145); UREA NITROGEN, BLOOD 18 mg/dL (7-18)
--- NOTE | 2018-06-27 07:30 | NUR ---
RN NOTES PATIENT A/OX3, BREATHING EVEN AND UNLABORED, DENIES PAIN OR DISCOMFORT NOTED, KEPT COMFORTABLE, NEEDS ATTENDED, CALL LIGHT WITHIN REACH, WILL CONTINUE TO MONITOR.
[2018-06-27 08:00] VITALS: BP 80/46
[2018-06-27] MEDS: MEMANTINE HCL 5 MG TABLET PO SCH ×2 (08:25→17:48)
[2018-06-27] MEDS: DOCUSATE SODIUM 100 MG CAPSULE PO SCH ×2 (08:26→17:48)
[2018-06-27] MEDS: QUETIAPINE FUMARATE 25 MG TABLET PO SCH ×2 (08:26→21:25)
[2018-06-27] MEDS: VALPROIC ACID 250 MG/5 ML UDC PO SCH ×2 (08:26→21:25)
[2018-06-27] MEDS: MELOXICAM 7.5 MG TABLET PO SCH (08:32)
[2018-06-27] MEDS ORDERED: MELOXICAM 7.5 MG TABLET PO SCH (09:00)
[2018-06-27] MEDS ORDERED: QUETIAPINE FUMARATE 25 MG TABLET PO SCH (09:00)
[2018-06-27] MEDS ORDERED: DOCUSATE SODIUM 100 MG CAPSULE PO SCH (09:00)
--- NOTE | 2018-06-27 10:20 | NUR ---
MS RN OPENING NOTES RECEIVED PATIENT IN STABLE CONDITION. IN NO APPARENT DISTRESS. BEDSIDE RAILS ARE UPX2. BED IS LOCKED AND LOWERED. CALL LIGHT IS WITHIN REACH. IV LINE IS INTACT AND PATENT. WILL CONTINUE TO MONITOR PATIENT.
[2018-06-27 16:00] VITALS: BP 110/54
[2018-06-27] MEDS ORDERED: FERROUS SULFATE (325 MG) 325 MG/TAB TABLET PO SCH (17:00)
[2018-06-27] MEDS: FERROUS SULFATE (325 MG) 325 MG/TAB TABLET PO SCH (17:48)
[2018-06-27] MEDS: CHOLECALCIFEROL 1,000 UNIT TABLET (VIT D3) PO SCH (17:48)
[2018-06-27] MEDS ORDERED: CHOLECALCIFEROL 1,000 UNIT TABLET (VIT D3) PO SCH (18:00)
--- NOTE | 2018-06-27 18:14 | NUR ---
CQ DEVELOPER CLOSING NOTES PATIENT IS IN STABLE CONDITION. IN NO APPARENT DISTRESS. BEDSIDE RAILS ARE UPX2. BED IS LOCKED AND LOWERED. CALL LIGHT IS WITHIN REACH. IV LINE IS INTACT AND PATENT. ALL NEEDS WERE MET. WILL ENDORSE CARE TO PUBLICATIONS MANAGER NURSE FOR PHI.
[2018-06-27 20:00] VITALS: BP 101/48
[2018-06-27] MEDS: SENNOSIDES 8.6 MG TABLET PO SCH (21:25)
[2018-06-27] MEDS: DONEPEZIL 5 MG TABLET PO SCH (21:25)
[2018-06-28] MEDS: IV NS 0.9% 1,000 ML IV PRN ×2 (00:36→16:34)
--- NOTE | 2018-06-28 06:23 | NUR ---
MS RN NOTES AWAKE & RESPONSIVE. NOT IN ANY DISTRESS. NO SOB NOTED. DENIES ANY PAIN OR DISCOMFORT AT THIS TIME. WITH IVF INFUSING WELL. MONITORED ACCORDINGLY. CALL LIGHT WITHIN REACH. BED IN LOWEST POSITION. SR UP X 2 FOR SAFETY. WILL ENDORSE TO NEXT SHIFT.
[2018-06-28 08:00] VITALS: BP 100/43
[2018-06-28 09:09] LABS: BASOPHILS # (AUTO) 0.1 /CMM (0.0-0.2); EOSINOPHILS % (AUTO) 1.7 % (0.0-6.0); HEMATOCRIT 30 % (33-45); LYMPHOCYTES # (AUTO) 1.4 /CMM (0.8-4.8); LYMPHOCYTES % (AUTO) 21.7 % (20.0-44.0); MEAN CORPUSCULAR HGB CONC 33 g/dl (31.0-36.0); MEAN CORPUSCULAR VOLUME 88 fL (82-100); MONOCYTES # (AUTO) 0.5 /CMM (0.1-1.30); NEUTROPHILS # (AUTO) 4.5 /CMM (1.8-8.9); NEUTROPHILS % (AUTO) 68.6 % (43.0-81.0); PLATELET COUNT (AUTO) 290 /CMM (150-450); RED BLOOD CELL COUNT(AUTO) 3.41 MIL/uL (4.0-5.2); WHITE BLOOD COUNT (AUTO) 6.6 K/uL (4.3-11.0)
[2018-06-28] MEDS: DOCUSATE SODIUM 100 MG CAPSULE PO SCH ×2 (09:19→17:03)
[2018-06-28] MEDS: QUETIAPINE FUMARATE 25 MG TABLET PO SCH ×2 (09:19→21:40)
[2018-06-28] MEDS: VALPROIC ACID 250 MG/5 ML UDC PO SCH ×2 (09:19→21:24)
[2018-06-28] MEDS: MEMANTINE HCL 5 MG TABLET PO SCH ×2 (09:19→17:03)
[2018-06-28] MEDS: MELOXICAM 7.5 MG TABLET PO SCH (09:19)
[2018-06-28 09:23] LABS: CALCIUM, SERUM 8.2 mg/dL (8.5-10.1); CARBON DIOXIDE 24 mmol/L (21-32); CHLORIDE 107 mmol/L (98-107); CREATININE 0.7 mg/dL (0.6-1.3); GLUCOSE 110 mg/dL (74-106); MAGNESIUM 1.8 mg/dL (1.8-2.4); PHOSPHORUS 3.2 mg/dL (2.5-4.9); POTASSIUM 3.3 mmol/L (3.5-5.1); SODIUM SERUM 142 mmol/L (136-145); UREA NITROGEN, BLOOD 18 mg/dL (7-18)
[2018-06-28] MEDS ORDERED: POTASSIUM CHLORIDE 20 MEQ TAB.PRT.SR PO ONE (10:00)
[2018-06-28 16:00] VITALS: BP 117/57
[2018-06-28] MEDS: FERROUS SULFATE (325 MG) 325 MG/TAB TABLET PO SCH (17:03)
[2018-06-28] MEDS: CHOLECALCIFEROL 1,000 UNIT TABLET (VIT D3) PO SCH (17:04)
--- NOTE | 2018-06-28 18:18 | NUR ---
MS RN CLOSING NOTES PATIENT IS IN STABLE CONDITION. IN NO APPARENT DISTRESS. BEDSIDE RAILS ARE UPX2. BED IS LOCKED AND LOWERED. CALL LIGHT IS WITHIN REACH. IV LINE IS INTACT AND PATENT. ALL NEEDS WERE MET. WILL ENDORSE CARE TO REMOTE SENSING SPECIALIST NURSE FOR PHI.
[2018-06-28 20:00] VITALS: BP 107/40
[2018-06-28] MEDS: DONEPEZIL 5 MG TABLET PO SCH (21:39)
[2018-06-28] MEDS: SENNOSIDES 8.6 MG TABLET PO SCH (21:39)
[2018-06-29 06:27] LABS: BASOPHILS % (AUTO) 0.5 % (0.0-2.0); EOSINOPHILS % (AUTO) 2.7 % (0.0-6.0); HEMATOCRIT 30 % (33-45); HEMOGLOBIN 9.8 g/dL (11.5-14.8); LYMPHOCYTES # (AUTO) 1.4 /CMM (0.8-4.8); LYMPHOCYTES % (AUTO) 24.9 % (20.0-44.0); MEAN CORPUSCULAR HGB CONC 33 g/dl (31.0-36.0); MEAN CORPUSCULAR VOLUME 88 fL (82-100); MONOCYTES # (AUTO) 0.5 /CMM (0.1-1.30); MONOCYTES % (AUTO) 8.3 % (2.0-12.0); NEUTROPHILS # (AUTO) 3.6 /CMM (1.8-8.9); NEUTROPHILS % (AUTO) 63.6 % (43.0-81.0); PLATELET COUNT (AUTO) 275 /CMM (150-450); RED BLOOD CELL COUNT(AUTO) 3.37 MIL/uL (4.0-5.2); WHITE BLOOD COUNT (AUTO) 5.7 K/uL (4.3-11.0)
[2018-06-29 06:48] LABS: CALCIUM, SERUM 8.3 mg/dL (8.5-10.1); CARBON DIOXIDE 26 mmol/L (21-32); CHLORIDE 109 mmol/L (98-107); CREATININE 0.6 mg/dL (0.6-1.3); GLUCOSE 90 mg/dL (74-106); MAGNESIUM 1.9 mg/dL (1.8-2.4); PHOSPHORUS 3.1 mg/dL (2.5-4.9); POTASSIUM 3.7 mmol/L (3.5-5.1); SODIUM SERUM 141 mmol/L (136-145); UREA NITROGEN, BLOOD 11 mg/dL (7-18)
--- NOTE | 2018-06-29 07:38 | NUR ---
MS RN NOTES RECEIVED PATIENT AWAKE IN BED WITH NO DISTRESS NOTED. NO C/O PAIN OR DISCOMFORT. PERIPHERAL LINE INTACT AND PATENT. BED IN LOW LOCK SETTING. ALL BELONGINGS NEAR BEDSIDE. CALL LIGHT WITHIN REACH. WILL CONTINUE TO MONITOR.
[2018-06-29 08:00] VITALS: BP 111/50
[2018-06-29] MEDS: IV NS 0.9% 1,000 ML IV PRN (08:29)
[2018-06-29] MEDS: MELOXICAM 7.5 MG TABLET PO SCH (08:37)
[2018-06-29] MEDS: MEMANTINE HCL 5 MG TABLET PO SCH (08:37)
[2018-06-29] MEDS: QUETIAPINE FUMARATE 25 MG TABLET PO SCH (08:37)
[2018-06-29] MEDS: DOCUSATE SODIUM 100 MG CAPSULE PO SCH (08:37)
[2018-06-29] MEDS: VALPROIC ACID 250 MG/5 ML UDC PO SCH (08:37)
--- NOTE | 2018-06-29 16:00 | NUR ---
MS RN NOTES PATIENT DISCHARGED TO [facility]. PATIENT ALERT, ORIENTED X2 DENIES ANY PAIN OR DISCOMFORT. PATIENT IN STABLE CONDITION. REPORT GIVEN TO TEZ HERNÁNDEZ AT SNF. PATIENT EDUCATED ON DISCHARGE VERBALIZED UNDERSTANDING. ALL BELONGINGS ACCOUNTED FOR, BELONGING LIST SIGNED. MD AWARE OF ALL ABNORMAL LABS. PERIPHERAL IV REMOVED WITH MINIMAL BLEEDING. ID BAND REMOVED. PATIENT TRANSFERRED VIA AMBULANCE.
== END 2018-06-29 16:03 | DRG 682 ==
LOC: ER 16:06 → TELE 21:20 → MED 06-27 09:22
PROVIDERS: ADMIT Internal Medicine; ATTEND Internal Medicine
DX: N17.0 Acute kidney failure with tubular necrosis (principal); G93.41 Metabolic encephalopathy; R62.7 Adult failure to thrive; I35.0 Nonrheumatic aortic (valve) stenosis; E86.0 Dehydration; G30.9 Alzheimer's disease, unspecified; F02.80 Dementia in other diseases classified elsewhere, unspecified severity, without behavioral disturbance, psychotic disturbance, mood disturbance, and anxiety
CPT/HCPCS: 36415; 70450-TC; 71045-TC; 80048-TC; 80076-TC; 81000-TC; 82140-TC; 83605-TC; 83735-TC; 84100-TC; 84443-TC; 84484-TC; 85025-TC; 85730-TC; 87081-TC; A4606; G0378; J7030; J7120; Z7610

== ENCOUNTER 2019-03-26 19:08 | Inpatient (IN) | payer MEDICARE, MEDICAID ==
[~2019-03-26] VITALS: Ht 165.1 cm; Wt 38.1 kg
[~2019-03-26 19:08] MED LIST changes: +ACET-868 PO; +BISA10SU11 RC; -CALC-883 PO; +CHOL100044 PO; -CYAN10009 PO; -DEXT15DR6 OP; +DONE10TA44 PO; +FERR325T23 PO; -GABA-532 PO; +MAGN400O6 PO; +MELO-105 PO; +MEMA10TA PO; -MEMA1CAP3 PO; +NA P133E RC; +QUET25TA PO; +VALP250C PO
--- NOTE | 2019-03-26 19:33 | NUR ---
CYNDY FROM [facility]. TO ER BED 10. AAOX1. NO RESP DISTRESS NOTED. BROUGHT IN FOR 15LBS WEIGHT LOSS IN 2 MONTH. PER REPORT, PT HAS NO APPETITE AND NOT EATING. PT HAS DX OF ALZHEIMERS. PT IS CALM, COOPERATIVE AND COMPLIANT. AWAITING MD FOR EVAL. IV LINE OBTAINED ON R AC 20G. BLOOD DRAWN AND GIVEN TO SUBSTANCE ABUSE SPECIALIST AT BEDSIDE.
[2019-03-26 19:37] LABS: BASOPHILS # (AUTO) 0.1 /CMM (0.0-0.2); BASOPHILS % (AUTO) 0.9 % (0.0-2.0); EOSINOPHILS % (AUTO) 1.7 % (0.0-6.0); HEMATOCRIT 34 % (33-45); HEMOGLOBIN 11.3 g/dL (11.5-14.8); LYMPHOCYTES % (AUTO) 36.1 % (20.0-44.0); MEAN CORPUSCULAR HGB CONC 34 g/dl (31.0-36.0); MEAN CORPUSCULAR VOLUME 94 fL (82-100); MONOCYTES # (AUTO) 0.4 /CMM (0.1-1.30); MONOCYTES % (AUTO) 7.7 % (2.0-12.0); NEUTROPHILS # (AUTO) 2.9 /CMM (1.8-8.9); NEUTROPHILS % (AUTO) 53.6 % (43.0-81.0); PLATELET COUNT (AUTO) 260 /CMM (150-450); RED BLOOD CELL COUNT(AUTO) 3.59 MIL/uL (4.0-5.2); WHITE BLOOD COUNT (AUTO) 5.5 K/uL (4.3-11.0)
[2019-03-26 19:47] LABS: CALCIUM, SERUM 9.5 mg/dL (8.5-10.1); CARBON DIOXIDE 31 mmol/L (21-32); CHLORIDE 104 mmol/L (98-107); CREATININE 0.8 mg/dL (0.6-1.3); GLUCOSE 144 mg/dL (74-106); SODIUM SERUM 142 mmol/L (136-145); UREA NITROGEN, BLOOD 22 mg/dL (7-18)
[2019-03-26 19:52] LABS: ALANINE AMINOTRANSFERASE 10 U/L (12-78); ALBUMIN 2.8 g/dL (3.4-5.0); ALKALINE PHOSPHATASE 76 U/L (46-116); ASPARTATE AMINOTRANSFERASE 8 U/L (15-37); BILIRUBIN,DIRECT 0.1 mg/dL (0.0-0.2); BILIRUBIN,TOTAL 0.2 mg/dL (0.2-1.0); TOTAL PROTEIN, SERUM 7.4 g/dL (6.4-8.2)
--- NOTE | 2019-03-26 20:04 | NUR ---
URINE COLLECTED FROM PT VIA IN & OUT CATH. YANET STERILE TECHNIQUE OBSERVED DURING PROCEDURE
--- NOTE | 2019-03-26 20:09 | NUR ---
NOTED WOUND COVERED WITH DRESSING ON L UPPER NUÑEZ AND L FOOT
--- NOTE | 2019-03-26 20:12 | NUR ---
CALLED HOUSE SUP FOR MS BED
[2019-03-26] MEDS ORDERED: MAGNESIUM HYDROXIDE 30 ML UDC PO PRN ×2 (20:30→21:00)
[2019-03-26] MEDS ORDERED: BISACODYL SUPP (10 MG) 10 MG/SUPP.RECT SUPP.RECT RC PRN (20:30)
[2019-03-26] MEDS ORDERED: ACETAMINOPHEN 325 MG TABLET PO PRN ×2 (20:30→21:00)
[2019-03-26] MEDS ORDERED: NA PHOS,M-B/NA PHOS,DI-BA 1 EA ENEMA RC PRN (20:30)
[2019-03-26 20:37] LABS: APPEARANCE,URINE Clear (CLEAR); BILIRUBIN,URINE Negative (NEGATIVE); BLOOD, URINE Trace-intact Ery/uL (NEGATIVE); COLOR,URINE Yellow (YELLOW); KETONES,URINE Negative (NEGATIVE); LEUKOCYTE ESTERASE ,URINE Trace (NEGATIVE); NITRITE, URINE Negative (NEGATIVE); PROTEIN,URINE Negative (NEGATIVE); UGLUCOSE Negative (NEGATIVE); UROBILINOGEN,URINE 0.2 EU/dL (0.2)
[2019-03-26 20:47] LABS: BACTERIA,URINE Few /HPF (None Seen); SQUAMOUS EPITHELIAL CELL,UR Few /HPF (None Seen)
[2019-03-26] MEDS ORDERED: ONDANSETRON HCL/PF 4 MG/2 ML VIAL IVP PRN (21:00)
[2019-03-26] MEDS ORDERED: MAG HYDROX/AL HYDROX/SIMETH 30 ML UDC PO PRN (21:00)
[2019-03-26] MEDS ORDERED: HYDROCODONE/APAP 5/325MG 1 EACH TABLET PO PRN (21:00)
[2019-03-26] MEDS ORDERED: Z GUARD REMEDY 2 OZ OINT TP PRN (21:00)
--- NOTE | 2019-03-26 21:12 | NUR ---
REPORT GIVEN TO BETTY RAYMUNDO FOR PHI.
[2019-03-26 21:30] VITALS: BP 114/54
--- NOTE | 2019-03-26 21:30 | NUR ---
MS RN - ADMISSION NOTE RECEIVED PATIENT VIA [email or web address]. A/O X1. TOLERATING ROOM AIR. NO SIGNS OF SOB NOTED. RESPIRATIONS ARE EVEN AND UNLABORED. DENIES PAIN AT THIS TIME. IV ACCES IN RAC GAUGE 20 PATENT AND SALINE LOCKED. INATAL PHYSICAL ASSESSMENT COMPLETED. SKIN ASSESSMENT COMPLETED. PHOTOS TAKEN AND PLACED IN CHART. BELONGINGS LIST COMPLETED BY PAID INTERNSHIP. PROVIDED ROOM ORIENTATION. BED IS LOW AND LOCKED, SIDE RAILS UP X3. CALL LIGHT WITHIN REACH. WILL CONTINUE TO MONITOR.
--- NOTE | 2019-03-26 21:31 | NUR ---
PT TRANSPORTED TO UNIT BY EMT ON [facility]. PT IS STABLE FOR TRANSPORT.
[2019-03-26 22:00] VITALS: BP 114/54
[2019-03-26] MEDS: IV 1/2NS 1000 ML 1,000 ML IV PRN (22:16)
[2019-03-26] MEDS: DONEPEZIL 5 MG TABLET PO SCH (22:16)
[2019-03-26] MEDS: SENNOSIDES 8.6 MG TABLET PO SCH (22:16)
[2019-03-26] MEDS: QUETIAPINE FUMARATE 25 MG TABLET PO SCH (22:16)
[2019-03-26] MEDS: VALPROIC ACID 250 MG/5 ML UDC PO SCH (22:31)
[2019-03-26] MEDS ORDERED: CEFTRIAXONE 1 G VIAL ONE (23:55)
--- NOTE | 2019-03-27 | NUR ---
MS RN NOTE CHARGE NURSE OVERRIDE FOR CEFTRIAXONE 1G PREMIX FOR SCHEDULED MED AT 0000 D/T LATE ORDER BY .
[2019-03-27] MEDS: CEFTRIAXONE 1 G in IV D5W 50 ML IV SCH ×2 (00:09→23:15)
[2019-03-27 06:31] LABS: BASOPHILS % (AUTO) 0.4 % (0.0-2.0); EOSINOPHILS % (AUTO) 1.7 % (0.0-6.0); HEMATOCRIT 33 % (33-45); HEMOGLOBIN 10.9 g/dL (11.5-14.8); LYMPHOCYTES # (AUTO) 2.6 /CMM (0.8-4.8); LYMPHOCYTES % (AUTO) 41.1 % (20.0-44.0); MEAN CORPUSCULAR HGB CONC 33 g/dl (31.0-36.0); MEAN CORPUSCULAR VOLUME 95 fL (82-100); MONOCYTES # (AUTO) 0.6 /CMM (0.1-1.30); MONOCYTES % (AUTO) 9.9 % (2.0-12.0); NEUTROPHILS % (AUTO) 46.9 % (43.0-81.0); PLATELET COUNT (AUTO) 231 /CMM (150-450); RED BLOOD CELL COUNT(AUTO) 3.48 MIL/uL (4.0-5.2); WHITE BLOOD COUNT (AUTO) 6.4 K/uL (4.3-11.0)
--- NOTE | 2019-03-27 06:34 | NUR ---
MS RN CLOSING NOTE PATIENT IS RESTING IN BED. A/O X1. TOLERATING ROOM AIR. NO SIGNS OF SOB NOTED THROUGHOUT SHIFT. RESPIRATIONS ARE EVEN AND UNLABORED. NO COMPLAINTS OF PAIN THROUGHOUT SHIFT. IV ACCES MAINTAINED IN RAC GAUGE 20 RUNNING 1/2NS @75ML/HR WITH NO SIGNS OF INFILTRATION. SKIN KEPT CLEAN AND DRY. TURNED Q2H. BED REMAINS LOW AND LOCKED, SIDE RAILS UP X3. CALL LIGHT WITHIN REACH. ALL NURSING NEEDS MET. NO APPARENT DISTRESS THROUGHOUT SHIFT. WILL ENDORSE TO NEXT SHIFT FOR PHI.
[2019-03-27 06:44] LABS: CALCIUM, SERUM 9.3 mg/dL (8.5-10.1); CREATININE 0.7 mg/dL (0.6-1.3); MAGNESIUM 2.2 mg/dL (1.8-2.4); POTASSIUM 4.2 mmol/L (3.5-5.1)
--- NOTE | 2019-03-27 07:10 | NUR ---
MS RN OPENING NOTE PATIENT IS RESTING IN BED. A/O X2. TOLERATING ROOM AIR. NO SIGNS OF RESPIRATORY DISTRESS OR SOB NOTED. RESPIRATIONS ARE EVEN AND UNLABORED. NO COMPLAINTS OF PAIN. IV ACCES IN RAC GAUGE 20 RUNNING 1/2NS @75ML/HR WITH NO SIGNS OF INFILTRATION. BED LOW AND LOCKED, SIDE RAILS UP X3. CALL LIGHT WITHIN REACH. BED ALARM ON. WILL CONT' TO MONITOR CLOSELY.
[2019-03-27 08:00] VITALS: BP_SYST 105; BP_DIAS 51; BP_DIAS 56
[2019-03-27] MEDS: MEMANTINE HCL 5 MG TABLET PO SCH ×2 (08:42→17:08)
[2019-03-27] MEDS: DOCUSATE SODIUM 100 MG CAPSULE PO SCH ×2 (08:43→17:08)
[2019-03-27] MEDS: QUETIAPINE FUMARATE 25 MG TABLET PO SCH ×2 (08:43→21:08)
[2019-03-27] MEDS: VALPROIC ACID 250 MG/5 ML UDC PO SCH ×2 (08:43→20:32)
[2019-03-27] MEDS: MELOXICAM 7.5 MG TABLET PO SCH (08:47)
--- NOTE | 2019-03-27 13:49 | NUR ---
MS RN NOTE VTE SCORE 3. PT CANNOT HAVE MECHANICAL PROPHYLAXIS B/C OF THE WOUNDS ON BOTH LEGS. SENT TEXT MESSAGE TO DR ORDOÑEZ REGARDING HGB 10.9 AND HTC 33 ANS ASKED IF HE WANTS TO STARTS ANY CHEMICAL PROPHYLAXIS. WILL FOLLOW UP.
--- NOTE | 2019-03-27 13:52 | NUR ---
MS RN NOTE PT AT BEDSIDE FOR EVALUATION. PATIENT NEEDED TOTAL ASSIST WITH STANDING WITH BEND KNEES. NOT AMBULATORY. BED ALARM ON.
[2019-03-27] MEDS ORDERED: ENOXAPARIN SODIUM 40 MG/0.4 ML DISP.SYRIN SQ SCH (14:30)
[2019-03-27] MEDS: ENOXAPARIN SODIUM 30 MG/0.3 ML DISP.SYRIN SQ SCH (14:59)
[2019-03-27 15:55] VITALS: BP 87/45
[2019-03-27 16:00] VITALS: BP 116/57
[2019-03-27] MEDS: IV 1/2NS 1000 ML 1,000 ML IV PRN (17:01)
[2019-03-27] MEDS: CHOLECALCIFEROL 1,000 UNIT TABLET (VIT D3) PO SCH (17:07)
[2019-03-27] MEDS: FERROUS SULFATE (325 MG) 325 MG/TAB TABLET PO SCH (17:08)
--- NOTE | 2019-03-27 18:48 | NUR ---
RN MS CLOSING NOTE PT RESTING IN BED COMFORTABLY. A/OX1. NO SIGNIFICANT CHANGE THROUGH THE SHIFT. NO SIGN OF RESPIRATORY DISTRESS OR SOB AT THIS TIME. NO COMPLAIN OF PAIN. SAFETY PRECAUTION MAINTAINED. HOD ELEVATED. BED LOCKED, LOW, SIDE RAILS UPX3. BED ALARM ON. ALL NEEDS ATTENDANT. WILL ENDORSE TO PM NURSE FOR PHI.
--- NOTE | 2019-03-27 19:25 | NUR ---
RN OPENING NOTES RECEIVED PATIENT FROM BETTY MACKENZIE. PATIENT IS RESTING IN BED, AWAKE, COMFORTABLE. PATIENT A/O X 1. ON ROOM AIR, TOLERATING WELL. NO SIGNS OF RESPIRATORY DISTRESS. NO SIGNS OF SHORTNESS OF BREATH NOTED. PATIENT DENIES PAIN AT THIS TIME. IV ACCESS: RIGHT ANTECUBITAL #20, NOT IN, LEAKING IVF. WILL TRY TO REINSERT LATER. WILL TURN EVERY Q2H, PATIENT JUST TURNED BY MIA DSOUZA AND MYSELF. PATIENT ALSO JUST KEPT CLEANED, DRY, COMFORTABLE. SAFETY PRECAUTIONS IMPLEMENTED; CALL LIGHT WITHIN REACH, BED LOCKED, BED LOWEST POSITION, SIDE RAILS UP X2, BED ALARM ON. WILL CONTINUE TO MONITOR.
--- NOTE | 2019-03-27 19:26 | NUR ---
RN NOTES IV FLUIDS DELAYED OF NOW. IV SITE RAC #20G, DISCONTINUED, DISCARDED. WILL ATTEMPT TO REINSERT A NEW IV SITE SOON POSSIBLE.
[2019-03-27 20:00] VITALS: BP 106/49
[2019-03-27] MEDS: DONEPEZIL 5 MG TABLET PO SCH (21:07)
[2019-03-27] MEDS: SENNOSIDES 8.6 MG TABLET PO SCH (21:08)
--- NOTE | 2019-03-27 21:50 | NUR ---
RN NOTES REINSERTED NEW IV. IV SITE RFA #20G INTACT, PATENT, FLUSHED. IVF 0.45 NS RESUMED AT 75 ML/HR.
[2019-03-28] VITALS: BP 105/58
--- NOTE | 2019-03-28 06:54 | NUR ---
RN CLOSING NOTES PATIENT CURRENTLY ASLEEP, RESTING COMFORTABLY IN BED, EASILY AROUSABLE TO VOICE. PATIENT REMAINS ON ROOM AIR, TOLERATING WELL. NO SIGNS OF RESPIRATORY DISTRESS, NO SIGNS OF SOB NOTED. NO SIGNS OF FACIAL GRIMACING INDICATING PAIN OR DISCOMFORT AT THIS TIME. NEW IV SITE: RFA #20G INTACT, PATENT, RUNNING 0.45 NS AT 75 ML/HR. PATIENT TURNED EVERY 2 HOURS. MEPILEX APPLIED TO OPEN AREAS OF SKIN. PATIENT KEPT CLEAN, DRY, AND COMFORTABLE. SAFETY PRECAUTIONS IMPLEMENTED; CALL LIGHT WITHIN REACH, BED LOCKED, BED LOWEST POSITION, SIDE RAILS UP X2, BED ALARM ON. WILL ENDORSE TO DAYSHIFT NURSE FOR CONTINUITY OF CARE.
--- NOTE | 2019-03-28 07:30 | NUR ---
RN MS NOTES PT IN BED, AWAKE, ALERT AND ORIENTED, VERBALLY RESPONSIVE, STATED THAT SHE SLEPT WELL DURING THE NIGHT, DENIES PAIN, NOT IN DISTRESS, IV FLUIDS INFUSING WELL, CALL LIGHT WITHIN REACH, KEPT WARM AND COMFORTABLE.
[2019-03-28 08:00] VITALS: BP 113/61
[2019-03-28] MEDS: QUETIAPINE FUMARATE 25 MG TABLET PO SCH ×2 (08:33→21:51)
[2019-03-28] MEDS: VALPROIC ACID 250 MG/5 ML UDC PO SCH ×2 (08:33→21:50)
[2019-03-28] MEDS: MEMANTINE HCL 5 MG TABLET PO SCH ×2 (08:33→16:48)
[2019-03-28] MEDS: MELOXICAM 7.5 MG TABLET PO SCH (08:33)
[2019-03-28] MEDS: DOCUSATE SODIUM 100 MG CAPSULE PO SCH ×2 (08:33→16:48)
--- NOTE | 2019-03-28 13:00 | NUR ---
RN MS NOTES PT IN BED, AWAKE, ALERT TO SELF, VERBALLY RESPONSIVE, ASSISTED WITH MEALS, TOLERATING WELL, CALL LIGHT WITHIN REACH, IV FLUIDS INFUSING WELL, NEEDS ATTENDED.
[2019-03-28] MEDS: ENOXAPARIN SODIUM 30 MG/0.3 ML DISP.SYRIN SQ SCH (14:32)
[2019-03-28] MEDS: IV 1/2NS 1000 ML 1,000 ML IV PRN (15:02)
[2019-03-28 16:00] VITALS: BP 84/40
[2019-03-28] MEDS: FERROUS SULFATE (325 MG) 325 MG/TAB TABLET PO SCH (16:48)
[2019-03-28] MEDS: CHOLECALCIFEROL 1,000 UNIT TABLET (VIT D3) PO SCH (17:27)
--- NOTE | 2019-03-28 18:10 | NUR ---
RN MS NOTES PT IN BED, AWAKE, ALERT AND VERBALLY RESPONSIVE, EATING DINNER, TOLERATING WELL, CALL LIGHT WITHIN REACH, DENIES PAIN OR ANY DISCOMFORT, IV FLUIDS INFUSING WELL, ALL NEEDS ATTENDED.
--- NOTE | 2019-03-28 19:15 | NUR ---
MS/RN NOTES RECEIVED PT. LYING IN BED. PT. IS AWAKE, ALERT AND ORIENTED X1. BREATHING EVEN AND UNLABORED ON ROOM AIR. NO SOB, RESPIRATORY DISTRESS OR COMPLAINTS OF PAIN NOTED AT THIS TIME. PT. WITH RIGHT FOREARM 20 GAUGE PERIPHERAL IV PRESENT, PATENT AND INTACT ADMINISTERING TO PT. 1/2 NS @ 75 ML/HR. BED LOCKED AND IN LOWEST POSITION, SIDE RAILS UP X3, BED ALARM ON, CALL LIGHT WITHIN REACH, WILL CONTINUE TO MONITOR.
[2019-03-28 20:00] VITALS: BP 104/59
[2019-03-28] MEDS: SENNOSIDES 8.6 MG TABLET PO SCH (21:51)
[2019-03-28] MEDS: DONEPEZIL 5 MG TABLET PO SCH (21:51)
[2019-03-29] MEDS: CEFTRIAXONE 1 G in IV D5W 50 ML IV SCH (00:50)
[2019-03-29] MEDS: IV 1/2NS 1000 ML 1,000 ML IV PRN ×2 (01:54→14:33)
--- NOTE | 2019-03-29 06:59 | NUR ---
MS/RN NOTES PT. IS LYING IN BED RESTING. BREATHING EVEN AND UNLABORED ON ROOM AIR. NO SOB, RESPIRATORY DISTRESS OR COMPLAINTS OF PAIN NOTED AT THIS TIME AND THROUGHOUT SHIFT. PT. WITH RIGHT FOREARM 20 GAUGE PERIPHERAL IV PRESENT, PATENT AND INTACT ADMINISTERING TO PT. 1/2 NS @ 75 ML/HR. ALL PT. NEEDS MET. PT. OFFLOADED, TURNED AND REPOSITIONED Q2H AND NEEDED. BED LOCKED AND IN LOWEST POSITION, SIDE RAILS UP X3, BED ALARM ON, CALL LIGHT WITHIN REACH, WILL ENDORSE TO DAYSHIFT NURSE FOR CONTINUITY OF CARE.
--- NOTE | 2019-03-29 07:20 | NUR ---
MS RN OPENING NOTES RECEIVED PATIENT IN BED RESTING COMFORTABLY IN MODERATE HIGH BACK REST. BREATHING EVEN AND UNLABORED ON ROOM AIR. NO SOB, RESPIRATORY DISTRESS NOTED AT THIS TIME. IV FLUIDS ON RIGHT FA #20 WITH 1/2 NS @ 75 ML/HR. PATENT AND INTACT. SAFETY MEASURES IN PLACE. BED LOCKED AND IN LOWEST POSITION, SIDE RAILS UP X3, BED ALARM ON, CALL LIGHT WITHIN REACH, WILL CONTINUE TO MONITOR.
[2019-03-29 08:00] VITALS: BP 112/55
[2019-03-29] MEDS: VALPROIC ACID 250 MG/5 ML UDC PO SCH (08:50)
[2019-03-29] MEDS: MEMANTINE HCL 5 MG TABLET PO SCH (08:50)
[2019-03-29] MEDS: QUETIAPINE FUMARATE 25 MG TABLET PO SCH (08:50)
[2019-03-29] MEDS: DOCUSATE SODIUM 100 MG CAPSULE PO SCH (08:50)
[2019-03-29] MEDS: MELOXICAM 7.5 MG TABLET PO SCH (08:53)
[2019-03-29 10:00] VITALS: BP 112/55
[2019-03-29] MEDS ORDERED: CEPH-569 PO (11:10)
[2019-03-29] MEDS ORDERED: MEGE400O4 PO (11:10)
[2019-03-29] MEDS: ENOXAPARIN SODIUM 30 MG/0.3 ML DISP.SYRIN SQ SCH (14:15)
[2019-03-29 16:00] VITALS: BP 113/57
--- NOTE | 2019-03-29 17:10 | NUR ---
RN DISCHARGED NOTES PATIENT DISCHARGED IN STABLE CONDITION. A/O X 1. V/S TAKEN, STABLE AND RECORDED. PATIENT'S IV REMOVED AND APPLIED PRESSURE DRESSING. NAME ARM BAND REMOVED. NO BELONGINGS ON LIST. HEALTH TEACHINGS/DISCHARGED INSTRUCTION GIVEN. PATIENT LEFT UNIT WITH 2 AMBULANCE STAFF. LEFT VIA GURNEY WITH NO ACUTE SIGNS OF DISTRESS. CHARGE NURSE AWARE OF DISCHARGED.
== END 2019-03-29 17:15 | DRG 682 ==
LOC: ER 19:08 → MED 20:42
PROVIDERS: ADMIT Internal Medicine; ATTEND Nurse Practitioner Acute Care
DX: N17.0 Acute kidney failure with tubular necrosis (principal); G93.41 Metabolic encephalopathy; E43 Unspecified severe protein-calorie malnutrition; N39.0 Urinary tract infection, site not specified; R62.7 Adult failure to thrive; G30.9 Alzheimer's disease, unspecified; F02.80 Dementia in other diseases classified elsewhere, unspecified severity, without behavioral disturbance, psychotic disturbance, mood disturbance, and anxiety; D64.9 Anemia, unspecified; F41.9 Anxiety disorder, unspecified; G62.9 Polyneuropathy, unspecified; M81.0 Age-related osteoporosis without current pathological fracture; R26.9 Unspecified abnormalities of gait and mobility; Z86.73 Personal history of transient ischemic attack (TIA), and cerebral infarction without residual deficits; I35.0 Nonrheumatic aortic (valve) stenosis; F20.9 Schizophrenia, unspecified; Z79.899 Other long term (current) drug therapy; Z91.81 History of falling
CPT/HCPCS: 36415; 71045-TC; 80048-TC; 80076-TC; 81000-TC; 83735-TC; 84100-TC; 84443-TC; 84484-TC; 85025-TC; 85730-TC; 87081-TC; 87086-TC; 97112-TC; 97530-TC; G0378; J0696; J1650; J3490; J7060

== ENCOUNTER 2020-10-25 14:43 | Inpatient (IN) | payer MEDICARE, OTHER ==
[~2020-10-25] VITALS: Ht 157.5 cm; Wt 35.8 kg
[~2020-10-25 14:43] MED LIST changes: +CEPH-569 PO; +MEGE400O4 PO; -SENN-168 PO; +SENN-261 PO
--- NOTE | 2020-10-25 14:57 | NUR ---
CYNDY FROM [facility] TO ER BED 7. AAOX1. NOT IN RESP DISTRESS, BREATHING EVEN AND UNLABORED. BROUGHT IN FOR POOR PO INTAKE WHICH WAS NOTED BY THE NURSE AT THE FACILTY STARTING TODAY. WAS AT THE BEDSIDE FOR EVAL. ORDERS RECEIVED AND CARRIED OUT.
[2020-10-25] MEDS ORDERED: CRAN425C6 PO (15:06)
[2020-10-25] MEDS ORDERED: AMIN30LI2 PO (15:06)
[2020-10-25] MEDS ORDERED: DIVA125C2 PO (15:06)
[2020-10-25] MEDS ORDERED: VIT1CAPS44 PO (15:06)
[2020-10-25] MEDS ORDERED: ZINC220C6 PO (15:06)
[2020-10-25] MEDS ORDERED: ASCO-352 PO (15:06)
[2020-10-25 15:15] LABS: BASOPHILS % (AUTO) 0.4 % (0.0-2.0); EOSINOPHILS % (AUTO) 0.1 % (0.0-6.0); HEMATOCRIT 36 % (33-45); HEMOGLOBIN 11.8 g/dL (11.5-14.8); LYMPHOCYTES # (AUTO) 1.6 /CMM (0.8-4.8); LYMPHOCYTES % (AUTO) 15.5 % (20.0-44.0); MEAN CORPUSCULAR HGB CONC 33 g/dl (31.0-36.0); MEAN CORPUSCULAR VOLUME 93 fL (82-100); MONOCYTES # (AUTO) 0.6 /CMM (0.1-1.30); MONOCYTES % (AUTO) 5.4 % (2.0-12.0); NEUTROPHILS % (AUTO) 78.6 % (43.0-81.0); PLATELET COUNT (AUTO) 293 /CMM (150-450); RED BLOOD CELL COUNT(AUTO) 3.88 MIL/uL (4.0-5.2); WHITE BLOOD COUNT (AUTO) 10.2 K/uL (4.3-11.0)
[2020-10-25 15:45] LABS: ALBUMIN 2.7 g/dL (3.4-5.0); BILIRUBIN,TOTAL 0.1 mg/dL (0.2-1.0); TOTAL PROTEIN, SERUM 7.2 g/dL (6.4-8.2)
[2020-10-25 15:57] LABS: B-TYPE NATRIURETIC PEPTIDE 456 PG/ML (0-125); CALCIUM, SERUM 9.1 mg/dL (8.5-10.1); CARBON DIOXIDE 29 mmol/L (21-32); CHLORIDE 110 mmol/L (98-107); CREATININE 0.8 mg/dL (0.6-1.3); GLUCOSE 169 mg/dL (74-106); SODIUM SERUM 146 mmol/L (136-145)
--- NOTE | 2020-10-25 15:58 | NUR ---
covid 19 swab collected and sent to lab
[2020-10-25 16:07] LABS: THYROID STIMULATING HORMONE 0.872 uIU/mL (0.358-3.74)
[2020-10-25 16:18] LABS: BILIRUBIN,URINE NEGATIVE (NEGATIVE); COLOR,URINE YELLOW (YELLOW); LEUKOCYTE ESTERASE ,URINE NEGATIVE (NEGATIVE); NITRITE, URINE POSITIVE (NEGATIVE); PROTEIN,URINE NEGATIVE (NEGATIVE); UGLUCOSE NEGATIVE (NEGATIVE); UROBILINOGEN,URINE 0.2 EU/dL (0.2)
[2020-10-25 16:28] LABS: UREA NITROGEN, BLOOD 44 mg/dL (7-18)
[2020-10-25 16:40] LABS: BACTERIA,URINE Many /HPF (None Seen); WBC,URINE 21-50 /HPF (0-3)
[2020-10-25 16:41] LABS: MUCUS,URINE Few /LPF (None Seen)
[2020-10-25] MEDS ORDERED: CEFTRIAXONE 1GM BAG (ER ONLY) 50 ML IV ONE (16:48)
--- NOTE | 2020-10-25 16:49 | NUR ---
[facility] CALLED JOB COUNSELOR PAGED.
[2020-10-25] MEDS ORDERED: CEFTRIAXONE 1GM BAG (ER ONLY) 1 GM/50 ML PIGGYBACK IV ONE (17:00)
--- NOTE | 2020-10-25 18:25 | NUR ---
BED 117-1
[2020-10-25] MEDS ORDERED: ACETAMINOPHEN 325 MG TABLET PO PRN ×2 (18:30)
[2020-10-25] MEDS ORDERED: ONDANSETRON HCL/PF 4 MG/2 ML VIAL IVP PRN (18:30)
[2020-10-25] MEDS ORDERED: MAGNESIUM HYDROXIDE 30 ML UDC PO PRN ×2 (18:30)
[2020-10-25] MEDS ORDERED: MAG HYDROX/AL HYDROX/SIMETH 30 ML UDC PO PRN (18:30)
[2020-10-25] MEDS ORDERED: BISACODYL SUPP (10 MG) 10 MG/SUPP.RECT SUPP.RECT RC PRN (18:30)
[2020-10-25] MEDS ORDERED: Z GUARD REMEDY 2 OZ OINT TP PRN (18:30)
--- NOTE | 2020-10-25 18:44 | NUR ---
report given to Duke HERNÁNDEZ for jimmie.
--- NOTE | 2020-10-25 19:12 | NUR ---
Wheeled patient via gurney accompanied by RN and emt in no distress. RN assigned at bedside to assume care.
[2020-10-25 19:20] VITALS: BP 132/63
--- NOTE | 2020-10-25 19:20 | NUR ---
RN ADMITTING NOTE RECEIVED PATIENT FROM ER VIA GURNEY ACCOMPANIED BY RN AND 2 ER PERSONNEL, ADMITTING DIAGNOSIS OF ACUTE ENCEPHALOPATHY; COVID PRC RESULTS PENDING. PATIENT CONFUSED, IN NO S/SX OF ACUTE DISTRESS AT THIS TIME. BREATHING IS EVEN AND UNLABORED. SATURATION AT 99% ON ROOM AIR, HR IS 60. NOTED IV SITE AT R AC 18G, SALINE LOCKED. NO S/S OF INFECTION OR INFILTRATION. NOTED R LOWER LEG ECCHYMOSIS, AND R FOOT SKIN TEAR MEASURING 1.0CM X 1.0 CM X 0.5 CM, PHOTOS TAKEN AND PLACED IN CHART. WOUND CONSULT REQUESTED. PATIENT KEPT CLEAN , DRY AND COMFORTABLE. SAFETY MEASURES IMPLEMENTED. PATIENT BED ALARM IS ON. HEAD OF BED ELEVATED. BED IS LOCKED, IN LOWEST POSITION AND SIDE RAILS UP. CALL LIGHT WITHIN REACH OF THE PATIENT. ISOLATION PRECAUTIONS IN PLACE. WILL CONTINUE TO MONITOR AND REASSESS FOR ANY CHANGES. WILL ATTEND TO ALL MD ADMITTING ORDERS.
[2020-10-25 20:00] VITALS: BP 157/70
--- NOTE | 2020-10-25 20:31 | NUR ---
RN NOTES SPOKE TO CATHI FROM [facility] REGARDING IMMUNIZATION RECORD. PATIENT HAD FLU VACCINE APR 2021/PNEUMOCOCCAL VACCINE 2017 AND COMPLETED 2 DOSES OF MODERNA COVID VACCINE ON 07/17/2020 AND 08/15/2020
[2020-10-25] MEDS: SENNOSIDES 8.6 MG TABLET PO SCH (21:13)
[2020-10-25] MEDS: DONEPEZIL 5 MG TABLET PO SCH (21:13)
[2020-10-25] MEDS: QUETIAPINE FUMARATE 25 MG TABLET PO SCH (21:13)
[2020-10-25] MEDS: DIVALPROEX SODIUM 125 MG CAP.SPRINK PO SCH (21:14)
[2020-10-25] MEDS: IV NS 0.9% 1,000 ML IV PRN (21:14)
[2020-10-25] MEDS: ENOXAPARIN SODIUM 40 MG/0.4 ML DISP.SYRIN SQ SCH (21:21)
[2020-10-26 06:45] LABS: BASOPHILS % (AUTO) 0.5 % (0.0-2.0); EOSINOPHILS % (AUTO) 0.1 % (0.0-6.0); HEMATOCRIT 36 % (33-45); HEMOGLOBIN 11.5 g/dL (11.5-14.8); LYMPHOCYTES # (AUTO) 2.5 /CMM (0.8-4.8); LYMPHOCYTES % (AUTO) 27.1 % (20.0-44.0); MEAN CORPUSCULAR HGB CONC 32 g/dl (31.0-36.0); MEAN CORPUSCULAR VOLUME 93 fL (82-100); MONOCYTES # (AUTO) 0.7 /CMM (0.1-1.30); MONOCYTES % (AUTO) 7.9 % (2.0-12.0); NEUTROPHILS # (AUTO) 5.8 /CMM (1.8-8.9); NEUTROPHILS % (AUTO) 64.4 % (43.0-81.0); PLATELET COUNT (AUTO) 267 /CMM (150-450); RED BLOOD CELL COUNT(AUTO) 3.85 MIL/uL (4.0-5.2)
--- NOTE | 2020-10-26 07:20 | NUR ---
RN NOTE PATIENT REMAINS IN BED, NO ACUTE DISTRESS NOTED, SATURATION >95% ON ROOM AIR, NS INFUSING AT 50 ML/HR VIA R AC 18G. FALL AND ASPIRATION PRECAUTIONS MAINTAINED AT ALL TIMES. SAFETY AND APPROPRIATE ISOLATION PRECAUTIONS IMPLEMENTED PER PROTOCOL PENDING COVID PCR RESULTS. ENDORSED TO LINA HERNÁNDEZ FOR CONTINUATION OF CARE.
[2020-10-26 07:45] LABS: CALCIUM, SERUM 8.8 mg/dL (8.5-10.1); CREATININE 0.6 mg/dL (0.6-1.3); MAGNESIUM 2.5 mg/dL (1.8-2.4); PHOSPHORUS 2.8 mg/dL (2.5-4.9); POTASSIUM 3.1 mmol/L (3.5-5.1)
[2020-10-26 07:50] LABS: THYROID STIMULATING HORMONE 1.104 uIU/mL (0.358-3.74)
--- NOTE | 2020-10-26 07:57 | NUR ---
MS RN NOTE PATIENT IN BED, AWAKE BUT CONFUSED, NO ACUTE DISTRESS NOTED, SATURATION 97% ON ROOM AIR, NS INFUSING AT 50 ML/HR VIA R AC 18G. FALL AND ASPIRATION PRECAUTIONS MAINTAINED AT ALL TIMES. SAFETY AND APPROPRIATE ISOLATION PRECAUTIONS IMPLEMENTED PER PROTOCOL , WILL CONT TO MONITOR
[2020-10-26 08:00] VITALS: BP 166/70
[2020-10-26] MEDS: POTASSIUM CHLORIDE 20 MEQ TAB.PRT.SR PO SCH ×2 (09:51→10:56)
[2020-10-26] MEDS: MELOXICAM 7.5 MG TABLET PO SCH (09:51)
[2020-10-26] MEDS: ZINC SULFATE 220 MG CAPSULE PO SCH (09:51)
[2020-10-26] MEDS: MULTIVITAMIN/LUTEIN/MINERALS 1 TAB PO SCH ×2 (09:51→16:16)
[2020-10-26] MEDS: MEMANTINE HCL 5 MG TABLET PO SCH ×2 (09:51→16:16)
[2020-10-26] MEDS: DIVALPROEX SODIUM 125 MG CAP.SPRINK PO SCH ×2 (09:51→21:20)
[2020-10-26] MEDS: DOCUSATE SODIUM 100 MG CAPSULE PO SCH ×2 (09:52→16:16)
[2020-10-26] MEDS: PROSOURCE / PROSTAT (PYXIS) 30 ML UDC PO SCH (09:52)
[2020-10-26] MEDS: ASCORBIC ACID 500 MG TABLET PO SCH (09:52)
[2020-10-26] MEDS: PANTOPRAZOLE 40 MG TABLET.DR PO SCH (09:52)
[2020-10-26] MEDS ORDERED: POTASSIUM CL. PREMIX PERIPHER. 50 ML IV SCH (10:00)
--- NOTE | 2020-10-26 10:00 | NUR ---
MS RN NOTE PARTH RN [employer] AT BEDSIDE UPDATED PATIENT CONDITION, AWARE THAT FED BY [employer] CONSULTANT, ATE 50 % WILL CONT TO MONITOR
--- NOTE | 2020-10-26 12:30 | NUR ---
MS RN NOTE ROUNDS MADE KEEP CLEAN DRY TURN REPOSITION ,FED PATIENT , ABLE TO EAT 50% OF LUNCH, WILL CONT TO MONITOR
--- NOTE | 2020-10-26 14:48 | NUR ---
MS RN NOTE PER DIETARY CHANGED TO PUREE DIET ORDER CARRIED OUT
[2020-10-26 16:00] VITALS: BP 122/66
[2020-10-26] MEDS: CEFTRIAXONE 1 G in IV D5W 50 ML IV SCH (16:08)
[2020-10-26] MEDS: IV NS 0.9% 1,000 ML IV PRN (16:52)
[2020-10-26] MEDS: FERROUS SULFATE (325 MG) 325 MG/TAB TABLET PO SCH (17:01)
[2020-10-26] MEDS: CHOLECALCIFEROL 1,000 UNIT TABLET (VIT D3) PO SCH (17:01)
[2020-10-26] MEDS ORDERED: Medication Not On Formulary EA (Cranberry Extract (Cranberry) 425 MG) PO SCH (18:00)
--- NOTE | 2020-10-26 18:21 | NUR ---
MS RN NOTE PATIENT IN BED ,ALL NEEDS ATTENDED ,NO SOB NOTED ,FED BY LUBE ATTENDANT DINNER , KEEP CLEAN DRY , CON ON IVF NOT IN DISTRESS, BED IN LOWEST AND LOCKED POSITION, WILL CONT TO MONITOR
--- NOTE | 2020-10-26 19:14 | NUR ---
RN NOTE RECEIVED PT IN BED AWAKE BUT CONFUSED. ON ROOM AIR, NO SIGNS OF APPARENT DISTRESS, NO SIGNS OF PAIN OR DISCOMFORT, WITH RIGHT AC 18G IV PATENT AND INTACT WITH NS @ 50ML/HOUR RUNNING ORDERED WITHOUT SIGNS OF COMPLICATIONS NOTED AT SITE, SAFETY MEASURES IN PLACE PER PROTOCOL, ASPIRATION PRECAUTIONS IN PLACE, WILL MONITOR PATIENT.
[2020-10-26 20:00] VITALS: BP 124/73
[2020-10-26] MEDS: QUETIAPINE FUMARATE 25 MG TABLET PO SCH (21:20)
[2020-10-26] MEDS: DONEPEZIL 5 MG TABLET PO SCH (21:20)
[2020-10-26] MEDS: SENNOSIDES 8.6 MG TABLET PO SCH (21:21)
[2020-10-26] MEDS: ENOXAPARIN SODIUM 40 MG/0.4 ML DISP.SYRIN SQ SCH (21:21)
[2020-10-27 04:00] VITALS: BP 116/62
--- NOTE | 2020-10-27 04:00 | NUR ---
RN NOTE COMPLETE BED BATH AND AM CARE COMPLETED, PT TOLERATED WELL. NO FURTHER NEEDS AT THIS TIME.
--- NOTE | 2020-10-27 06:52 | NUR ---
RN NOTE NO CHANGES OBSERVED OVERNIGHT. PT IS AWAKE AND ALERT/ORIENTED X 1 (TO NAME). REORIENTED PT PRN. ON ROOM AIR WITHOUT SIGNS OF APPARENT DISTRESS. RIGHT AC IV PATENT WITH NS @ 50ML/HOUR ORDERED WITHOUT SIGNS OF INFECTION OR INFILTRATION AT SITE, ALL NEEDS MET AND ATTENDED TO, SAFETY MEASURES IN PLACE PER PROTOCOL, ASPIRATION PRECAUTIONS IN PLACE, WILL ENDORSE TO MORNING RN FOR PHI.
--- NOTE | 2020-10-27 07:30 | NUR ---
MS RN NOTE PATIENT IN BED, AWAKE CONFUSED, REALITY ORIENTATION DONE.ON ROOM AIR, NO ACUTE DISTRESS NOTED, SATURATION 96%, NO SIGNS OF PAIN, NS INFUSING AT 50 ML/HR VIA R AC 18G. SITE CLEAR. ON PUREED DIET. WILL PERFORM PRESCRIBED WOUND TREATMENT IN A WHILE. TURN AND REPOSITION Q 2 HOURS. FALL AND ASPIRATION PRECAUTIONS MAINTAINED AT ALL TIMES. SAFETY AND APPROPRIATE ISOLATION PRECAUTIONS IMPLEMENTED PER PROTOCOL , WILL CONT TO MONITOR.
[2020-10-27 08:00] VITALS: BP 87/53
[2020-10-27] MEDS: PANTOPRAZOLE 40 MG TABLET.DR PO SCH (08:37)
[2020-10-27] MEDS: MEMANTINE HCL 5 MG TABLET PO SCH ×2 (09:07→17:27)
[2020-10-27] MEDS: ZINC SULFATE 220 MG CAPSULE PO SCH (09:07)
[2020-10-27] MEDS: MULTIVITAMIN/LUTEIN/MINERALS 1 TAB PO SCH ×2 (09:07→17:28)
[2020-10-27] MEDS: ASCORBIC ACID 500 MG TABLET PO SCH (09:07)
[2020-10-27] MEDS: DOCUSATE SODIUM 100 MG CAPSULE PO SCH ×2 (09:07→17:28)
[2020-10-27] MEDS: DIVALPROEX SODIUM 125 MG CAP.SPRINK PO SCH ×2 (09:07→21:37)
[2020-10-27] MEDS: PROSOURCE / PROSTAT (PYXIS) 30 ML UDC PO SCH (09:08)
[2020-10-27] MEDS: MELOXICAM 7.5 MG TABLET PO SCH (09:08)
--- NOTE | 2020-10-27 09:23 | NUR ---
WOUND CARE CONSULT: PT ADAMANTLY REFUSED SKIN ASSESSMENT. ADMISSION PHOTO INDICATES RT FOOT WOUND AND DISCOLORATION TO LOWER LEGS, PRESENT ON ADMISSION. DR RANDALL NOTIFIED OF DPM CONSULT REQUEST. PT TO BE PLACED ON AVANI ISOFLEX LOW AIRLOSS BED. RECOMMENDATIONS MADE FOR SKIN PROTECTION. DISCUSSED WITH NURSING STAFF. MD IN AGREEMENT WITH PLAN OF CARE.
--- NOTE | 2020-10-27 09:30 | NUR ---
RN NOTES DUE MEDS GIVEN
[2020-10-27 12:00] VITALS: BP 100/60
--- NOTE | 2020-10-27 14:40 | NUR ---
RN NOTES ATTEMPTED TO CALL PATIENT'S GUARDIAN AT [phone] TO GET CONSENT FOR SERIAL EXCISIONAL WOUND DEBRIDEMENT OF RIGHT LOWER EXTREMITY. NO ANSWER. MESSAGE LEFT TO CALL US BACK.
[2020-10-27 16:00] VITALS: BP 102/56
[2020-10-27] MEDS: CEFTRIAXONE 1 G in IV D5W 50 ML IV SCH (17:27)
[2020-10-27] MEDS: CHOLECALCIFEROL 1,000 UNIT TABLET (VIT D3) PO SCH (17:28)
[2020-10-27] MEDS: ENSURE ENLIVE 237 ML LIQUID (VANILLA) PO SCH (17:28)
[2020-10-27] MEDS: FERROUS SULFATE (325 MG) 325 MG/TAB TABLET PO SCH (17:28)
--- NOTE | 2020-10-27 18:35 | NUR ---
MS RN CLOSING NOTE PATIENT IN BED, RESTING, AWAKE, CONFUSED, ON ROOM AIR, NO ACUTE DISTRESS NOTED, SATURATION 96%, NO SIGNS OF PAIN, NS INFUSING AT 50 ML/HR VIA R AC 18G. SITE CLEAR. ON REGULAR DIET. CRUSH MEDS. FEEDER. PM CARE DONE AND PERFORMED PRESCRIBED WOUND TREATMENT. TURNED AND REPOSITIONED Q 2 HOURS. FALL AND ASPIRATION PRECAUTIONS MAINTAINED AT ALL TIMES. SAFETY AND APPROPRIATE ISOLATION PRECAUTIONS IMPLEMENTED PER PROTOCOL , ALL NEEDS MET. NO OTHER SIGNIFICANT CHANGE IN CONDITION. WILL ENDORSE TO NEXT SHIFT FOR PHI.
--- NOTE | 2020-10-27 19:30 | NUR ---
MS RN: CONTINUITY OF CARE Patient in bed, awake, A/O x1 to self only. IVF infusing. Right foot with mepilex foam, offload. Turned and repositioned. Fall precaution maintained.
[2020-10-27 20:42] VITALS: BP 99/48
[2020-10-27] MEDS: ENOXAPARIN SODIUM 40 MG/0.4 ML DISP.SYRIN SQ SCH (21:00)
[2020-10-27] MEDS: QUETIAPINE FUMARATE 25 MG TABLET PO SCH (21:35)
[2020-10-27] MEDS: DONEPEZIL 5 MG TABLET PO SCH (21:35)
[2020-10-27] MEDS: SENNOSIDES 8.6 MG TABLET PO SCH (21:35)
--- NOTE | 2020-10-27 21:59 | NUR ---
ANTICOAGULANT HELD Lovenox injection 2100 dose held, patient with serial excisional wound debridement tomorrow.
[2020-10-28] VITALS: BP 131/67
[2020-10-28] MEDS: IV NS 0.9% 1,000 ML IV PRN (04:41)
[2020-10-28 04:58] VITALS: BP 130/69
--- NOTE | 2020-10-28 06:44 | NUR ---
MS RN: END OF SHIFT REPORT IVF. On IV Rocephin, afebrile. Incontinent, turned and repositioned, offload fish heels at all times. Lovenox injection held. Plan for Wound debridement. Will endorse to oncoming RN.
[2020-10-28 08:35] LABS: BASOPHILS % (AUTO) 0.6 % (0.0-2.0); EOSINOPHILS % (AUTO) 1.5 % (0.0-6.0); HEMATOCRIT 35 % (33-45); HEMOGLOBIN 11.4 g/dL (11.5-14.8); LYMPHOCYTES # (AUTO) 2.6 /CMM (0.8-4.8); LYMPHOCYTES % (AUTO) 31.7 % (20.0-44.0); MEAN CORPUSCULAR HGB CONC 33 g/dl (31.0-36.0); MEAN CORPUSCULAR VOLUME 92 fL (82-100); MONOCYTES # (AUTO) 0.5 /CMM (0.1-1.30); MONOCYTES % (AUTO) 5.6 % (2.0-12.0); NEUTROPHILS % (AUTO) 60.6 % (43.0-81.0); PLATELET COUNT (AUTO) 243 /CMM (150-450); WHITE BLOOD COUNT (AUTO) 8.2 K/uL (4.3-11.0)
[2020-10-28 08:49] LABS: CALCIUM, SERUM 8.4 mg/dL (8.5-10.1); CARBON DIOXIDE 29 mmol/L (21-32); CHLORIDE 109 mmol/L (98-107); CREATININE 0.5 mg/dL (0.6-1.3); GLUCOSE 98 mg/dL (74-106); MAGNESIUM 2.2 mg/dL (1.8-2.4); PHOSPHORUS 3.2 mg/dL (2.5-4.9); POTASSIUM 3.7 mmol/L (3.5-5.1); SODIUM SERUM 143 mmol/L (136-145); UREA NITROGEN, BLOOD 17 mg/dL (7-18)
[2020-10-28] MEDS: MELOXICAM 7.5 MG TABLET PO SCH (09:06)
[2020-10-28] MEDS: MEMANTINE HCL 5 MG TABLET PO SCH ×2 (09:06→16:41)
[2020-10-28] MEDS: MULTIVITAMIN/LUTEIN/MINERALS 1 TAB PO SCH ×2 (09:07→16:41)
[2020-10-28] MEDS: DIVALPROEX SODIUM 125 MG CAP.SPRINK PO SCH ×2 (09:07→21:29)
[2020-10-28] MEDS: ASCORBIC ACID 500 MG TABLET PO SCH (09:07)
[2020-10-28] MEDS: ENSURE ENLIVE 237 ML LIQUID (VANILLA) PO SCH ×2 (09:07→18:42)
[2020-10-28] MEDS: ZINC SULFATE 220 MG CAPSULE PO SCH (09:07)
[2020-10-28] MEDS: DOCUSATE SODIUM 100 MG CAPSULE PO SCH ×2 (09:07→16:41)
[2020-10-28] MEDS: PANTOPRAZOLE 40 MG TABLET.DR PO SCH (09:07)
[2020-10-28] MEDS: PROSOURCE / PROSTAT (PYXIS) 30 ML UDC PO SCH (09:18)
[2020-10-28 12:00] VITALS: BP 126/70
[2020-10-28 16:00] VITALS: BP 125/78
[2020-10-28] MEDS: CEFTRIAXONE 1 G in IV D5W 50 ML IV SCH (16:40)
[2020-10-28] MEDS: CHOLECALCIFEROL 1,000 UNIT TABLET (VIT D3) PO SCH (16:41)
[2020-10-28] MEDS: FERROUS SULFATE (325 MG) 325 MG/TAB TABLET PO SCH (17:50)
--- NOTE | 2020-10-28 19:11 | NUR ---
RN CLOSING NOTES Patient is alert and responsive x1. Breathing even and unlabored. On IV fluids running at 50 cc./hour to right forearm . No c/o pain or discomfort. Patient noted with intake of 10 % breakfast , 40 % lunch and 50 % dinner. Psych eval placed and Dr Walker aware and will eval patient in am.Bed is in lowest and locked position. Call light within reach.Will endorse to next shift for PHI.
[2020-10-28 20:00] VITALS: BP 132/62
[2020-10-28] MEDS: DONEPEZIL 5 MG TABLET PO SCH (21:29)
[2020-10-28] MEDS: QUETIAPINE FUMARATE 25 MG TABLET PO SCH (21:29)
[2020-10-28] MEDS: SENNOSIDES 8.6 MG TABLET PO SCH (21:29)
[2020-10-28] MEDS: ENOXAPARIN SODIUM 40 MG/0.4 ML DISP.SYRIN SQ SCH (21:30)
[2020-10-29 04:00] VITALS: BP 139/70
[2020-10-29] MEDS: IV NS 0.9% 1,000 ML IV PRN (04:16)
[2020-10-29 06:22] LABS: BASOPHILS % (AUTO) 0.3 % (0.0-2.0); EOSINOPHILS % (AUTO) 0.9 % (0.0-6.0); HEMATOCRIT 36 % (33-45); HEMOGLOBIN 11.8 g/dL (11.5-14.8); LYMPHOCYTES # (AUTO) 2.7 /CMM (0.8-4.8); LYMPHOCYTES % (AUTO) 30.6 % (20.0-44.0); MEAN CORPUSCULAR HGB CONC 33 g/dl (31.0-36.0); MEAN CORPUSCULAR VOLUME 93 fL (82-100); MONOCYTES # (AUTO) 0.5 /CMM (0.1-1.30); MONOCYTES % (AUTO) 6.1 % (2.0-12.0); NEUTROPHILS # (AUTO) 5.5 /CMM (1.8-8.9); NEUTROPHILS % (AUTO) 62.1 % (43.0-81.0); PLATELET COUNT (AUTO) 243 /CMM (150-450); RED BLOOD CELL COUNT(AUTO) 3.93 MIL/uL (4.0-5.2); WHITE BLOOD COUNT (AUTO) 8.8 K/uL (4.3-11.0)
--- NOTE | 2020-10-29 06:33 | NUR ---
MS RN NOTES AWAKE & RESPONSIVE. NOT IN ANY DISTRESS. NO SOB NOTED. DENIES ANY PAIN OR DISCOMFORT AT THIS TIME. WITH IVF INFUSING WELL. AM CARE DONE. MONITORED ACCORDINGLY. CALL LIGHT WITHIN REACH. BED IN LOWEST POSITION. SR UP X 3 WITH BED ALARM ON FOR SAFETY. WILL ENDORSE TO NEXT SHIFT.
[2020-10-29 06:40] LABS: CALCIUM, SERUM 8.1 mg/dL (8.5-10.1); CARBON DIOXIDE 28 mmol/L (21-32); CHLORIDE 108 mmol/L (98-107); CREATININE 0.5 mg/dL (0.6-1.3); GLUCOSE 106 mg/dL (74-106); MAGNESIUM 2.2 mg/dL (1.8-2.4); PHOSPHORUS 3.2 mg/dL (2.5-4.9); POTASSIUM 4.4 mmol/L (3.5-5.1); SODIUM SERUM 140 mmol/L (136-145); UREA NITROGEN, BLOOD 15 mg/dL (7-18)
--- NOTE | 2020-10-29 07:30 | NUR ---
RN OPENING NOTES Patient is alert and responsive x1. Breathing even and unlabored. On IV fluids running at 50 cc./hour to right forearm .No c/o pain or discomfort. Bed is in lowest and locked position. Call light with in reach.
[2020-10-29 08:00] VITALS: BP 106/50
[2020-10-29] MEDS: ZINC SULFATE 220 MG CAPSULE PO SCH (09:08)
[2020-10-29] MEDS: MELOXICAM 7.5 MG TABLET PO SCH (09:08)
[2020-10-29] MEDS: DOCUSATE SODIUM 100 MG CAPSULE PO SCH (09:11)
[2020-10-29] MEDS: ASCORBIC ACID 500 MG TABLET PO SCH (09:11)
[2020-10-29] MEDS: MULTIVITAMIN/LUTEIN/MINERALS 1 TAB PO SCH (09:11)
[2020-10-29] MEDS: DIVALPROEX SODIUM 125 MG CAP.SPRINK PO SCH (09:11)
[2020-10-29] MEDS: PANTOPRAZOLE 40 MG TABLET.DR PO SCH (09:11)
[2020-10-29] MEDS: MEMANTINE HCL 5 MG TABLET PO SCH (09:11)
[2020-10-29] MEDS: PROSOURCE / PROSTAT (PYXIS) 30 ML UDC PO SCH (09:12)
[2020-10-29] MEDS: ENSURE ENLIVE 237 ML LIQUID (VANILLA) PO SCH (09:13)
[2020-10-29 12:00] VITALS: BP 102/58
--- NOTE | 2020-10-29 15:00 | NUR ---
Patient seen by Dr Walker and new med changes
[2020-10-29] MEDS ORDERED: LACT-246 PO (15:09)
[2020-10-29] MEDS ORDERED: PANT40TA2 PO (15:09)
[2020-10-29] MEDS ORDERED: OLAN2.5T3 PO (15:09)
[2020-10-29] MEDS ORDERED: MIRT-121 PO (15:09)
[2020-10-29 16:00] VITALS: BP 93/48
--- NOTE | 2020-10-29 17:36 | NUR ---
DISCHARGE NOTE Patient is alert and responsive x1. Breathing even and unlabored. [facility] and report given to jerrod. Per jerrod to leave IV access to right forearm. Patient left the facility in stable condition in a gurney.
[2020-10-29] MEDS ORDERED: OLANZAPINE 2.5 MG TABLET PO SCH (22:00)
[2020-10-29] MEDS ORDERED: MIRTAZAPINE 15 MG TABLET PO SCH (22:00)
== END 2020-10-29 16:40 | DRG 640 ==
LOC: ER 14:52 → MEDSG1 18:40
PROVIDERS: ADMIT Registered Nurse; ATTEND Registered Nurse
DX: E86.0 Dehydration (principal); G92 Toxic encephalopathy; N39.0 Urinary tract infection, site not specified; L97.419 Non-pressure chronic ulcer of right heel and midfoot with unspecified severity; R62.7 Adult failure to thrive; E87.1 Hypo-osmolality and hyponatremia; G62.9 Polyneuropathy, unspecified; G30.9 Alzheimer's disease, unspecified; F41.9 Anxiety disorder, unspecified; Z86.73 Personal history of transient ischemic attack (TIA), and cerebral infarction without residual deficits; F02.80 Dementia in other diseases classified elsewhere, unspecified severity, without behavioral disturbance, psychotic disturbance, mood disturbance, and anxiety; I35.0 Nonrheumatic aortic (valve) stenosis; R26.9 Unspecified abnormalities of gait and mobility; Z79.899 Other long term (current) drug therapy; R27.8 Other lack of coordination; M81.0 Age-related osteoporosis without current pathological fracture; D64.9 Anemia, unspecified; B96.89 Other specified bacterial agents as the cause of diseases classified elsewhere; R79.89 Other specified abnormal findings of blood chemistry; M20.42 Other hammer toe(s) (acquired), left foot; M20.41 Other hammer toe(s) (acquired), right foot; M62.562 Muscle wasting and atrophy, not elsewhere classified, left lower leg; M62.561 Muscle wasting and atrophy, not elsewhere classified, right lower leg; B96.20 Unspecified Escherichia coli [E. coli] as the cause of diseases classified elsewhere; Z20.822 Contact with and (suspected) exposure to COVID-19
CPT/HCPCS: 36415; 71045-TC; 80048-TC; 80061-TC; 80076-TC; 81001; 83690-TC; 83735-TC; 83880; 84100-TC; 84443-TC; 84484-TC; 85025-TC; 87081-TC; 87086-TC; 87186-TC; G0378; J0696; J1650; J7030; J7060; U0003

== ENCOUNTER 2021-01-20 10:05 | Inpatient (IN) | payer MEDICARE, OTHER ==
[2021-01-20] VITALS (22 sets, daily range): BP systolic 77–117; BP diastolic 45–59
[~2021-01-20] VITALS: Ht 157.5 cm; Wt 38.1 kg
[~2021-01-20 10:05] MED LIST changes: +AMIN30LI2 PO; +ASCO-352 PO; -CEPH-569 PO; +CRAN425C6 PO; +DIVA125C2 PO; +LACT-246 PO; -MEGE400O4 PO; +MIRT-121 PO; +OLAN2.5T3 PO; +PANT40TA2 PO; -VALP250C PO; +VIT1CAPS44 PO; +ZINC220C6 PO
--- NOTE | 2021-01-20 10:12 | NUR ---
COVID VACCINE: MODERNA 2ND COVID 08/15/20 1ST COVID 07/17/20
[2021-01-20 10:17] LABS: ABG BASE EXCESS 0.3 mmol/L; ABG OXYGEN SATURATION 73.1 % (92.0-98.5); ABG PCO2 31.7 mmHg (35.0-45.0); ABG PH 7.481 (7.350-7.450); ABG PO2 36.6 mmHg (75.0-100.0); AaDO2 644.7 mmHg; COHb 0.1 % (0.5-1.5); MetHb 0.3 % (0.0-1.5); O2Hb 72.8 % (94.0-97.0); SITE, ABG Left Radial; VENT MODE, BG NRB
[2021-01-20] MEDS ORDERED: IV NS 0.9% 500 ML BAG IV ONE (10:30)
[2021-01-20 10:47] LABS: BASOPHILS % (AUTO) 0.2 % (0.0-2.0); EOSINOPHILS % (AUTO) 0.1 % (0.0-6.0); HEMATOCRIT 35 % (33-45); HEMOGLOBIN 11.4 g/dL (11.5-14.8); LYMPHOCYTES # (AUTO) 0.8 K/uL (0.8-4.8); LYMPHOCYTES % (AUTO) 4.9 % (20.0-44.0); MEAN CORPUSCULAR HGB CONC 32 g/dl (31.0-36.0); MEAN CORPUSCULAR VOLUME 91 fL (82-100); MONOCYTES # (AUTO) 0.5 K/uL (0.1-1.30); MONOCYTES % (AUTO) 3.6 % (2.0-12.0); NEUTROPHILS # (AUTO) 13.9 K/uL (1.8-8.9); NEUTROPHILS % (AUTO) 91.2 % (43.0-81.0); PLATELET COUNT (AUTO) 562 K/uL (150-450); RED BLOOD CELL COUNT(AUTO) 3.88 MIL/uL (4.0-5.2); WHITE BLOOD COUNT (AUTO) 15.2 K/uL (4.3-11.0)
[2021-01-20 10:53] LABS: CALCIUM, SERUM 9.1 mg/dL (8.5-10.1); CARBON DIOXIDE 26 mmol/L (21-32); CHLORIDE 105 mmol/L (98-107); GLUCOSE 221 mg/dL (74-106); POTASSIUM 3.9 mmol/L (3.5-5.1); SODIUM SERUM 144 mmol/L (136-145); UREA NITROGEN, BLOOD 33 mg/dL (7-18)
--- NOTE | 2021-01-20 10:59 | NUR ---
ADMISSION PACKET SENT ICU BED REQUESTED
[2021-01-20 11:15] LABS: ALANINE AMINOTRANSFERASE 14 U/L (12-78); ALBUMIN 2.6 g/dL (3.4-5.0); ALKALINE PHOSPHATASE 79 U/L (46-116); ASPARTATE AMINOTRANSFERASE 12 U/L (15-37); BILIRUBIN,DIRECT 0.1 mg/dL (0.0-0.2); BILIRUBIN,TOTAL 0.3 mg/dL (0.2-1.0); TOTAL PROTEIN, SERUM 7.6 g/dL (6.4-8.2)
[2021-01-20] MEDS ORDERED: ACET325T53 PO (11:17)
[2021-01-20] MEDS ORDERED: MULT-447 PO (11:17)
[2021-01-20] MEDS ORDERED: MEGE400O4 PO (11:17)
[2021-01-20] MEDS ORDERED: IV NS 0.9% 1,000 ML BAG IV ONE (11:30)
[2021-01-20] MEDS ORDERED: PIPERACILLIN /TAZOBACTAM 3.375 G in IV D5W 50 ML IV ONE (11:30)
[2021-01-20] MEDS ORDERED: LEVOFLOXACIN 750 MG /D5W 150ML 150 ML IV ONE (11:30)
--- NOTE | 2021-01-20 11:35 | NUR ---
PT RECEIVED ON BED ON BIPAP, TOLERATING WELL. APPEARS COMFORTABLE. MEDICATION ORDERS RECEIVED.
[2021-01-20] MEDS ORDERED: MAG HYDROX/AL HYDROX/SIMETH 30 ML UDC PO PRN (12:00)
[2021-01-20] MEDS ORDERED: IV D5/ 0.9% NACL 1,000 ML IV PRN (12:00)
[2021-01-20] MEDS ORDERED: MAGNESIUM HYDROXIDE 30 ML UDC PO PRN (12:00)
[2021-01-20] MEDS ORDERED: ACETAMINOPHEN 325 MG TABLET PO PRN (12:00)
[2021-01-20] MEDS ORDERED: Z GUARD REMEDY 2 OZ OINT TP PRN (12:00)
[2021-01-20] MEDS ORDERED: ONDANSETRON HCL/PF 4 MG/2 ML VIAL IVP PRN (12:00)
[2021-01-20] MEDS ORDERED: DEXTROSE 50%-WATER 50 ML DISP.SYRIN IV PRN (12:00)
--- NOTE | 2021-01-20 13:17 | NUR ---
ICU BED 257
--- NOTE | 2021-01-20 13:28 | NUR ---
REPORT GIVEN TO BETTY LONDON FOR PHI
--- NOTE | 2021-01-20 14:18 | NUR ---
Received patient awake in [facility]. On non-rebreather mask o2 sat 98%. No signs of pain or discomfort. Vital signs within normal limits. Safety measures implemented. Will cont to monitor.
--- NOTE | 2021-01-20 14:26 | NUR ---
PT TRANSPORTED TO UNIT ON GURNEY WITH EMT AND RN AT BEDSIDE W/ ACLS PROTOCOL. NAD NOTED DURING TRANSPORT.
[2021-01-20 14:49] LABS: ABG OXYGEN SATURATION 99.3 % (92.0-98.5); ABG PCO2 28.2 mmHg (35.0-45.0); ABG PO2 244.8 mmHg (75.0-100.0); COHb 0.3 % (0.5-1.5); MetHb 0.1 % (0.0-1.5); O2Hb 98.9 % (94.0-97.0); SITE, ABG Left Radial
[2021-01-20] MEDS: methylPREDNISolone SOD SUCC 125 MG/2ML VIAL IV SCH ×2 (14:59→18:06)
[2021-01-20] MEDS: BLOOD SUGAR DIAGNOSTIC 1 EACH STRIP IN SCH ×2 (15:05→18:14)
[2021-01-20] MEDS: PANTOPRAZOLE 40 MG VIAL IV SCH (15:05)
[2021-01-20] MEDS: IV D5/ 0.9% NACL 1,000 ML IV PRN (15:08)
[2021-01-20] MEDS: ENOXAPARIN SODIUM 30 MG/0.3 ML DISP.SYRIN SQ SCH (15:08)
[2021-01-20] MEDS: INSULIN REGULAR, HUMAN 100 UNIT/ML 3 ML VIAL SQ PRN (15:12)
[2021-01-20] MEDS: IPRATROPIUM BROMIDE 14 GM INHALER (or 12.9 GM) NEB SCH ×2 (15:57→20:16)
[2021-01-20 16:48] LABS: IRON, SERUM 12 ug/dl (50-175); TOTAL IRON BINDING CAPACITY 165 ug/dl (250-450)
[2021-01-20 16:49] LABS: FERRITIN 224 ng/mL (8-388)
[2021-01-20] MEDS: PIPERACILLIN /TAZOBACTAM 3.375 G in IV D5W 50 ML IV SCH ×2 (18:07→23:59)
--- NOTE | 2021-01-20 19:09 | NUR ---
RN CLOSING NOTE Patient in bed awake no signs of distress. Simple mask 8L tolerating well. Patient is disoriented and aphasic. DENISSE midline running d5NS @ 75ml/hr. R hand #20 and L hand#20 dressing intact flushes well. Patient NPO for now. ordered swallow eval. Pictures taken for wounds and ordered wound consult. Safety measures reinforced. Endorsed to veneer marker nurse for jimmie.
--- NOTE | 2021-01-20 19:45 | NUR ---
RN NOTE RECEIVED PT IN BED, AWAKE, NONVERBAL. ON O2 VIA SIMPLE MASK AT 8L. NO SIGNS OF DISTRESS NOTED. ON TELE MONITORING SHOWS SR WITH HR IN 90S. IV ON RHAND LHAND AND DENISSE MIDLINE ALL PATENT AND INTACT, PT ON IVF D5NS AT 75ML/HR. NO SIGNS OF PAIN OR DISCOMFORT NOTED. ALL SAFETY IN PLACE PER PROTOCOL. WILL CONTINUE TO MONITOR.
[2021-01-20] MEDS ORDERED: NOREPINEPHRINE 8 MG in IV NS 0.9% 242 ML IV PRN (21:30)
[2021-01-20] MEDS ORDERED: IV NS 0.9% 500 ML IV ONE (21:30)
--- NOTE | 2021-01-20 21:30 | NUR ---
RN NOTE PT BP NOTED BELOW 80S, CHECKED 3X. LATEST BP GOT 77/47 HR 84. NO DISTRESS NOTED. CHARGE NURSE NOTIFIED CAD MANAGER DR GREER, OBTAINED AN ORDER TO START IV BOLUS AND LEVOPHED.
[2021-01-20] MEDS ORDERED: NOREPINEPHRINE 8MG/250ML RTU 250 ML IV ONE (21:37)
--- NOTE | 2021-01-20 21:40 | NUR ---
RN NOTE LEVOPHED STARTED PER PROTOCOL. WILL CONTINUE TO MONITOR.
[2021-01-21] VITALS (85 sets, daily range): BP systolic 82–152; BP diastolic 40–93
[2021-01-21] MEDS: IPRATROPIUM BROMIDE 14 GM INHALER (or 12.9 GM) NEB SCH ×3 (00:04→07:27)
[2021-01-21] MEDS: BLOOD SUGAR DIAGNOSTIC 1 EACH STRIP IN SCH ×5 (00:08→23:54)
[2021-01-21] MEDS: INSULIN REGULAR, HUMAN 100 UNIT/ML 3 ML VIAL SQ PRN ×4 (00:10→23:54)
--- NOTE | 2021-01-21 03:00 | NUR ---
RN NOTE REMOVED RASHID, NOTED LEAKING. CHANGED ONCE, 2 OTHER NURSES CONFIRMED PLACEMENT. STILL LEAKS. CHARGE NURSE MADE AWARE. NO SIGNS OF BLEEDING NOTED.
[2021-01-21 04:49] LABS: BASOPHILS % (AUTO) 0.2 % (0.0-2.0); HEMATOCRIT 27 % (33-45); HEMOGLOBIN 8.9 g/dL (11.5-14.8); LYMPHOCYTES % (AUTO) 6.2 % (20.0-44.0); MEAN CORPUSCULAR HGB CONC 33 g/dl (31.0-36.0); MEAN CORPUSCULAR VOLUME 90 fL (82-100); MONOCYTES # (AUTO) 0.3 K/uL (0.1-1.30); MONOCYTES % (AUTO) 1.8 % (2.0-12.0); NEUTROPHILS # (AUTO) 15.1 K/uL (1.8-8.9); NEUTROPHILS % (AUTO) 91.8 % (43.0-81.0); PLATELET COUNT (AUTO) 374 K/uL (150-450); RED BLOOD CELL COUNT(AUTO) 2.99 MIL/uL (4.0-5.2); WHITE BLOOD COUNT (AUTO) 16.4 K/uL (4.3-11.0)
[2021-01-21 05:05] LABS: CALCIUM, SERUM 8.2 mg/dL (8.5-10.1); CREATININE 0.7 mg/dL (0.6-1.3); MAGNESIUM 2.1 mg/dL (1.8-2.4); PHOSPHORUS 2.1 mg/dL (2.5-4.9); POTASSIUM 3.1 mmol/L (3.5-5.1)
[2021-01-21 05:09] LABS: THYROID STIMULATING HORMONE 0.927 uIU/mL (0.358-3.74)
[2021-01-21] MEDS: PIPERACILLIN /TAZOBACTAM 3.375 G in IV D5W 50 ML IV SCH ×4 (05:35→23:55)
[2021-01-21] MEDS: IV D5/ 0.9% NACL 1,000 ML IV PRN (05:35)
--- NOTE | 2021-01-21 06:45 | NUR ---
RN NOTES PT REMAINS IN BED, TOLERATING O2. NO SIGNS OF DISTRESS NOTED. O2 SAT AT 99%. REMAIN NPO. CONTINUE ON IVF D5NS. ON LEVOPHED AT 0.1MCG/KG/MIN. BP WITHIN NORMAL LIMITS. ALL SAFETY MAINTAINED. WILL ENDORSE TO NEXT SHIFT NURSE FOR PHI.
[2021-01-21] MEDS ORDERED: Sodium Phosphate 15 MMOL in IV NS 0.9% 245 ML IV ONE (08:00)
[2021-01-21] MEDS: IV NS 0.9% 250 ML IV PRN (08:00)
--- NOTE | 2021-01-21 08:00 | NUR ---
RN NOTES RECEIVED PATIENT IN THE BED PER RT PATIENT ON NC 4L, O2-99-100 %, PATIENT HAS NO ACUTE RESPIRATORY DISTRESS, BED BOUND. PATIENT NPO. INFUSING LEVOPHED 0.1 MCG/KG/HR, AND D5NS AT 75 ML/HR. PATIENT VERY SKINNY, DEPRESS, NOT ANSWERING YES OR NO QUESTIONS. ASSIST TURN AND REPOSTION Q 2 HR, CALL LIGHT WITHIN TO REACH. WILL MONITORING.
[2021-01-21] MEDS: POTASSIUM CL. PREMIX PERIPHER. 50 ML IV SCH ×4 (08:20→12:29)
[2021-01-21] MEDS: methylPREDNISolone SOD SUCC 125 MG/2ML VIAL IV SCH ×2 (08:21→18:08)
[2021-01-21] MEDS: PANTOPRAZOLE 40 MG VIAL IV SCH (08:21)
[2021-01-21] MEDS: ENOXAPARIN SODIUM 30 MG/0.3 ML DISP.SYRIN SQ SCH (08:33)
--- NOTE | 2021-01-21 09:25 | NUR ---
RN NOTES HELD LEVOPHED AT THIS TIME, BP 114/64, P-79, 02-99NC-4L. SWALLOW EVALUATION ROWAN BY ME BETTY WHITE, PATIENT ABLE TO SWALLOW, KEEP HOB ELEVATED. PATIENT TOLERATED 15% OF OFFERED FOOD, NOTED SHE DOES NOT LIKE IT. SOFT DIET ORDERED, SEEN HOSPITALIST, LORI FISH.
[2021-01-21] MEDS: IPRATROPIUM NEB FS 0.5 MG/2.5 ML AMPUL.NEB NEB SCH ×4 (10:53→23:42)
--- NOTE | 2021-01-21 13:03 | NUR ---
RN NOTES PATIENT SCHEDULED GT PLACEMENT TODAY ORDER OF HOSPITALIST LORI FISH, CONSENT FORM SIGNED VIA ABE, AND DR TORRES. PATIENT UNABLE TO SIGN AND BECAUSE OF DIAGNOSIS . NO FAMILY MEMBER, PATIENT CONSERVED.
--- NOTE | 2021-01-21 15:00 | NUR ---
RN NOTES GET ORDER OF BILATERAL SOFT RESTRAIN BECAUSE OF TRYING TO REMOVE IV ACCESSES.
[2021-01-21] MEDS ORDERED: NOREPINEPHRINE 8 MG in IV NS 0.9% 242 ML IV PRN (16:00)
--- NOTE | 2021-01-21 18:23 | NUR ---
rn notes bs-136mg/dl no coverage given, because of NPO PEG placemnt on tomorrow 1999 pm. Consent form signed via two MD's. patient conserve. Michael SANDOVAL talked to the conservator. PM care, mouth care done , due medication administered. VSS. Infusing Zosyn 100 ml/hr on left UA midline intact. Assist patient turn and reposition q 2 hr. Reduce pressure on bony prominences. Patient room air at this time o2-94%, keep hob elevated. call light within to reach. Endorsed oncoming nurse follow plan of care.
--- NOTE | 2021-01-21 19:33 | NUR ---
SPRING FITTER HELPER OPENING NOTES: Rec'd pt in bed, A&Ox1. On room air, tolerating well. No resp distress noted at this time. SR on tele monitor. DENISSE midline patent and flushed. Dressing c/d/i. Bilateral soft wrist restraints in place, will remove per protocol. No pain noted at this time. Safety measures in place. Will continue to monitor.
--- NOTE | 2021-01-21 20:10 | NUR ---
pt verbally refused chest percussive therapy at this time. pt scratching. Addendum: 01/21/21 at 2012 by INGRID JENSEN Amended: Links added.
[2021-01-22] VITALS (66 sets, daily range): BP systolic 85–143; BP diastolic 42–83
[2021-01-22] MEDS: IPRATROPIUM NEB FS 0.5 MG/2.5 ML AMPUL.NEB NEB SCH ×6 (03:30→19:30)
[2021-01-22 04:40] LABS: BASOPHILS % (AUTO) 0.1 % (0.0-2.0); HEMATOCRIT 24 % (33-45); LYMPHOCYTES % (AUTO) 10.3 % (20.0-44.0); MEAN CORPUSCULAR HGB CONC 33 g/dl (31.0-36.0); MEAN CORPUSCULAR VOLUME 90 fL (82-100); MONOCYTES # (AUTO) 0.4 K/uL (0.1-1.30); MONOCYTES % (AUTO) 3.7 % (2.0-12.0); NEUTROPHILS # (AUTO) 8.4 K/uL (1.8-8.9); NEUTROPHILS % (AUTO) 85.9 % (43.0-81.0); PLATELET COUNT (AUTO) 306 K/uL (150-450); RED BLOOD CELL COUNT(AUTO) 2.66 MIL/uL (4.0-5.2); WHITE BLOOD COUNT (AUTO) 9.8 K/uL (4.3-11.0)
[2021-01-22 04:51] LABS: ALBUMIN 1.7 g/dL (3.4-5.0); BILIRUBIN,TOTAL 0.2 mg/dL (0.2-1.0); CREATININE 0.6 mg/dL (0.6-1.3); PHOSPHORUS 2.3 mg/dL (2.5-4.9); POTASSIUM 3.3 mmol/L (3.5-5.1); TOTAL PROTEIN, SERUM 5.5 g/dL (6.4-8.2)
[2021-01-22] MEDS: PIPERACILLIN /TAZOBACTAM 3.375 G in IV D5W 50 ML IV SCH ×4 (05:45→23:49)
[2021-01-22] MEDS: INSULIN REGULAR, HUMAN 100 UNIT/ML 3 ML VIAL SQ PRN (05:55)
[2021-01-22] MEDS: BLOOD SUGAR DIAGNOSTIC 1 EACH STRIP IN SCH ×4 (05:55→23:49)
--- NOTE | 2021-01-22 07:53 | NUR ---
WOUND CARE CONSULT: PT PRESENTS WITH FOOT WOUNDS, RT AND LEFT HIP INTACT DEEP TISSUE INJURIES, SACRAL AND UPPER/MIDBACK SCARRING, PRESENT ON ADMISSION. PT IS EXTREMELY THIN AND BONY. LOWER EXTREMITES ARE CONTRACTED. DPM CONSULT CALLED TO DR RANDALL. RECOMMENDATIONS MADE FOR SKIN PROTECTION. DISCUSSED WITH NURSING STAFF. FIRST STEP LOW AIRLOSS MATTRESS IS ON ORDER. MD IN AGREEMENT WITH PLAN OF CARE. Addendum: 01/22/21 at 0755 by GAGE HOPPER WNDNU Amended: Links added.
[2021-01-22] MEDS ORDERED: POTASSIUM CL. PREMIX PERIPHER. 50 ML IV SCH (08:00)
--- NOTE | 2021-01-22 08:00 | NUR ---
rn notes seen patient more awake,alert/ talking. patient room air getting breathing treatment via RT, patient NPO scheduled GT placement tonight . seen wound nurse, and for left foot wound will follow up with Podiatric Dr Quezada. assist patient turn and reposition q 2 hr. infusing ns at 10 ml/hr tko. rechecked circulation for bilateral restrain. call light within to reach. will follow up.
[2021-01-22] MEDS ORDERED: Sodium Phosphate 15 MMOL in IV NS 0.9% 245 ML IV ONE (09:00)
[2021-01-22] MEDS: PANTOPRAZOLE 40 MG VIAL IV SCH (09:02)
[2021-01-22] MEDS: methylPREDNISolone SOD SUCC 125 MG/2ML VIAL IV SCH ×2 (09:03→17:09)
[2021-01-22] MEDS: ENOXAPARIN SODIUM 30 MG/0.3 ML DISP.SYRIN SQ SCH (09:04)
[2021-01-22] MEDS: POTASSIUM PHOSPHATE MM 7.5 MMOL in IV NS 0.9% 100 ML IV SCH ×2 (09:21→12:31)
[2021-01-22] MEDS ORDERED: MORPHINE SULFATE INJ 2 MG/ML DISP.SYRIN IV PRN (10:00)
[2021-01-22] MEDS: IV NS 0.9% 250 ML IV PRN (10:01)
--- NOTE | 2021-01-22 10:07 | NUR ---
RN NOTES ADMINISTERED MORPHINE SULFATE 0.5 MG/ML IV PUSH FOR GENERALIZED PAIN 02/20 PER PATIENT REQUEST, BP 114/64, P-71, R-17. PATIENT SCHEDULED GT PLACEMENT TODAY, NPO. WILL MONITORING.
[2021-01-22] MEDS ORDERED: IV D5/0.45 NACL 1,000 ML IV ONE (12:00)
--- NOTE | 2021-01-22 12:11 | NUR ---
RN NOTES BS- 100 MG/DL, STARTED D51/2 NS AT 40 ML/HR PER PORTRAIT PAINTER'S ORDER ON LEFT UA MIDLINE INTACT. PATIENT RESTING IN THE BED , MEDICATION WERE ADMINISTERED FOR PAIN EFFECTIVE.
--- NOTE | 2021-01-22 16:00 | NUR ---
RN NOTES PATIENT AWAKE AND CONFUSED SAME TIME, EXPLAINED PATIENT WILL TRANSFER TELE UNIT.
--- NOTE | 2021-01-22 18:37 | NUR ---
RN NOTES PATIENT AWAKE, REFUSED PAIN , NO ACUTE RESPIRATORY DISTRESS, NPO BECAUSE OF SCHEDULED GT PLACEMENT VIA Dr TORRES. INFUSING ZOSYN 100ML/HR, AND D51/2 NS AT 40ML/HR INTACT ON LEFT UA MIDLINE. CALL LIGHT WITHIN TO REACH. ENDORSED ONCOMING NURSE FOLLOW PHI.
--- NOTE | 2021-01-22 19:00 | NUR ---
CHILD PSYCHIATRIST. SEND THE PT TO OR AT 1930. {PT ACCOMPANY WITH FORKLIFT TRUCK OPERATOR. }
--- NOTE | 2021-01-22 19:10 | NUR ---
VICE PRESIDENT COMPLIANCE. RECEIVED THE PT REST ON THE BED.AWAKE, ALERT. PT IS NPO. FOR PEG PLACEMENT. PT IS ROOM AIR. SAT 98%. NO ACUTE DISTRESS NOTED. FITTER / WELDER SHOWING NSR. IV LT UPPER ARM MID LINE. IVF D51/2NS @ 40 ML/H. HOB ELEVATED. DONNY SOFT WRIST RESTRAINT CHECKED AND RELEASED. NO INJURY OR REDNESS NOTED. WILL CONTINUE TO MONITOR VITALS.
--- NOTE | 2021-01-22 20:50 | NUR ---
RN OPENING NOTES REC'D PT FROM [facility], ICU. WITH OR STAFF. PT IS BACK S/P PEG INSERTION. PT IS ON ROOM AIR TOLERATING WELL. PT RESPONDS TO NAME, BUT CONFUSED. ON TELE MONITORING PRESENTS WITH NSR 60S. PT HAS DENISSE MIDLINE, FLUSHED ASEPTICALLY. PEG FLUSHES WELL. ORDERS FOR NPO EXCEPT MEDS, AND TO RESUME TUBE FEEDING IN THE MORNING, HANDWRITTEN PER ALINE FROM CHART. IVF FOR Q24H ONCE NOTED, D5 1/2 NS RUNNING ORDERED.. ALL SAFETY MEASURES IN PLACE, HOB ELEVATED BED LOCKED IN LOWEST POSITION WITH BED ALARM ON. CALL LIGHT WITHIN REACH. WILL CONT TO MONITOR CLOSELY.
--- NOTE | 2021-01-22 21:04 | NUR ---
manager icu. report given to ALESSANDRO HERNÁNDEZ. OR IS TRANSFER THE PT TO ROOM 105.
[2021-01-23] VITALS: BP 133/79
[2021-01-23] MEDS: INSULIN REGULAR, HUMAN 100 UNIT/ML 3 ML VIAL SQ PRN ×2 (00:03→06:03)
[2021-01-23] MEDS: IPRATROPIUM NEB FS 0.5 MG/2.5 ML AMPUL.NEB NEB SCH ×7 (00:07→23:31)
--- NOTE | 2021-01-23 01:30 | NUR ---
RN NOTE PT NOTED TO BE PULLING AT LINES AND PEG, NOTIFIED SONOGRAM TECHNICIAN DANIEL OROSCO, RENEWAL FOR RESTRAINTS SOFT DONNY ORDERS CARRIED OUT
[2021-01-23 04:00] VITALS: BP 130/69
[2021-01-23] MEDS: PIPERACILLIN /TAZOBACTAM 3.375 G in IV D5W 50 ML IV SCH ×3 (05:42→17:01)
[2021-01-23] MEDS: BLOOD SUGAR DIAGNOSTIC 1 EACH STRIP IN SCH ×3 (05:43→17:13)
[2021-01-23 06:21] LABS: BASOPHILS % (AUTO) 0.1 % (0.0-2.0); HEMATOCRIT 26 % (33-45); HEMOGLOBIN 8.5 g/dL (11.5-14.8); LYMPHOCYTES # (AUTO) 1.2 K/uL (0.8-4.8); LYMPHOCYTES % (AUTO) 8.9 % (20.0-44.0); MEAN CORPUSCULAR HGB CONC 32 g/dl (31.0-36.0); MEAN CORPUSCULAR VOLUME 91 fL (82-100); MONOCYTES # (AUTO) 0.5 K/uL (0.1-1.30); MONOCYTES % (AUTO) 3.3 % (2.0-12.0); NEUTROPHILS # (AUTO) 12.2 K/uL (1.8-8.9); NEUTROPHILS % (AUTO) 87.7 % (43.0-81.0); PLATELET COUNT (AUTO) 351 K/uL (150-450); RED BLOOD CELL COUNT(AUTO) 2.86 MIL/uL (4.0-5.2); WHITE BLOOD COUNT (AUTO) 13.9 K/uL (4.3-11.0)
[2021-01-23 06:38] LABS: CALCIUM, SERUM 7.6 mg/dL (8.5-10.1); CREATININE 0.6 mg/dL (0.6-1.3); PHOSPHORUS 2.1 mg/dL (2.5-4.9); POTASSIUM 4.4 mmol/L (3.5-5.1)
--- NOTE | 2021-01-23 06:43 | NUR ---
RN CLOSING NOTE NO SIGNIFICANT CHANGES IN PT CONDITION. ALL NEEDS ATTENDED. NO S/S OF PAIN. WOUND CARE BED BATH DONE, PT REMAINS ON ROOM AIR, ON ISOFLEX MATTRESS. T/R Q2H. ALL DUE MEDS GIVEN. ALL SAFETY MEASURES IN PLACE, HOB ELEVATED BED LOCKED IN LOWEST POSITION WITH BED ALARM ON. CALL LIGHT WITHIN REACH. WILL ENDORSE TO DAY SHIFT RN FOR CONTINUATION OF CARE.
--- NOTE | 2021-01-23 07:31 | NUR ---
HOGSHEAD ROLLER NOTE PATIENT IN BED , ON RA ,NO SOB NOTED AT THIS TIME,RESTING COMFORTABLY IN BED AT THIS TIME, ON TELE MONITOR SB 54, ON SOFT REFRAIN AT THIS TIME , PATIENT TRYING TO REMOVE IV LINES, DENISSE MID LINE IN PLACE , ON IVF ORDERED, BED IN LOWEST AND LOCKED POSITION , CALL LIGHT WITHIN REACH, WILL MONITOR
[2021-01-23 08:00] VITALS: BP 115/61
[2021-01-23] MEDS: PANTOPRAZOLE 40 MG/PACK PACK NG SCH (08:19)
[2021-01-23] MEDS: NEUTRA PHOS 1 POWD.PACKET PO SCH ×2 (08:19→15:58)
[2021-01-23] MEDS: ENOXAPARIN SODIUM 30 MG/0.3 ML DISP.SYRIN SQ SCH (08:20)
[2021-01-23] MEDS: methylPREDNISolone SOD SUCC 125 MG/2ML VIAL IV SCH ×2 (08:20→16:02)
[2021-01-23] MEDS ORDERED: JEVITY 1.2 CAL 1,000 ML BOTTLE GT PRN (09:30)
--- NOTE | 2021-01-23 10:00 | NUR ---
MS RN NOTE DR CORMIER AT BEDSIDE UPDATED PATIENT CONDITION, NO NEW ORDER GIVE ASKED ABOUT RASHID CATH STATED NO NEED AT THIS TIME
[2021-01-23 12:00] VITALS: BP 116/60
--- NOTE | 2021-01-23 13:00 | NUR ---
MS RN NOTE TURN REPOSITION.CONT ON G TUB E FEEDING TOLERATED, KEEP HOB ELEVATED AT ALL TIME ,WILL MONITOR
[2021-01-23 16:00] VITALS: BP 126/69
--- NOTE | 2021-01-23 17:15 | NUR ---
MS RN NOTE FACE TO FACE ASSESSMENT DONE , PATIENT STILL TRYING TO REMOVE IV LINES , DR CORMIER GAVE ORDER TO RENEW SOFT RESTRAIN , WILL F\U
--- NOTE | 2021-01-23 18:41 | NUR ---
MS RN NOTE PATIENT IN BED ,ALERT WITH CONFUSION,ON ON G TUBE FEEDING ORDERED, NO RESIDUAL NOTED ,KEEP HOB ELEVATED AT ALL TIME RA NO SOB NOTED AT THIS TIME,, DENISSE MID LINE IN PLACE AND FLUSHED WELL , BED IN LOWEST AND LOCKED POSITION , SAFETY MEASURE PROVIDED WILL CONT TO MONITOR CLOSELY
--- NOTE | 2021-01-23 19:30 | NUR ---
RN NOTE RECEIVED PATIENT IN BED RESTING ALERT CONFUSED VERBALLY RESPONSIVE ON ROOM AIR O2:96% ON G-TUBE FEEDING JEVITY 1.2 25CC/HR GOAL IS 45CC/HR CHECKED PLACEMENT NO RESIDUAL NOTED, INCREASE TO 30CC/HR HEAD OF THE BED ELEVATED,IV SITE IS ON LEFT UPPER ARM MIDLINE INTACT PATENT,SAFETY MEASURE IMPLEMENT BED IN LOW POSITION AND LOCKED CONTINUE TO MONITOR.
[2021-01-23 20:00] VITALS: BP 119/59
[2021-01-24] VITALS: BP 119/59
[2021-01-24] MEDS: BLOOD SUGAR DIAGNOSTIC 1 EACH STRIP IN SCH ×3 (00:07→12:12)
[2021-01-24] MEDS: INSULIN REGULAR, HUMAN 100 UNIT/ML 3 ML VIAL SQ PRN ×3 (00:09→12:13)
[2021-01-24 04:00] VITALS: BP 131/65
[2021-01-24] MEDS: IPRATROPIUM NEB FS 0.5 MG/2.5 ML AMPUL.NEB NEB SCH ×3 (04:09→11:05)
[2021-01-24] MEDS: PIPERACILLIN /TAZOBACTAM 3.375 G in IV D5W 50 ML IV SCH ×3 (05:12→12:25)
--- NOTE | 2021-01-24 06:33 | NUR ---
RN NOTE PATIENT REMAINS ON ALERT ORIENTED X1 VERBALLY RESPONSIVE NO SOB NOT ACUTE DISTRESS NOTED,IV SITE IS ON LEFT UPPER ARM MIDLINE INTACT PATENT,KEPT CLEAN AND DRY ALL THE TIME ALL DUE MEDS GIVEN MD ORDERED,KEPT COMFORTABLE KEPT CLEAN AND DRY ALL THE TIMES,ALL NEEDS MET.ENDORSE NEXT COMING SHIFT FOR [facility]
[2021-01-24 08:00] VITALS: BP 127/56
[2021-01-24 08:19] LABS: BASOPHILS % (AUTO) 0.2 % (0.0-2.0); EOSINOPHILS % (AUTO) 0.1 % (0.0-6.0); HEMATOCRIT 27 % (33-45); HEMOGLOBIN 8.9 g/dL (11.5-14.8); LYMPHOCYTES # (AUTO) 1.8 K/uL (0.8-4.8); LYMPHOCYTES % (AUTO) 12.1 % (20.0-44.0); MEAN CORPUSCULAR HGB CONC 33 g/dl (31.0-36.0); MEAN CORPUSCULAR VOLUME 90 fL (82-100); MONOCYTES # (AUTO) 0.8 K/uL (0.1-1.30); MONOCYTES % (AUTO) 5.5 % (2.0-12.0); NEUTROPHILS # (AUTO) 11.9 K/uL (1.8-8.9); NEUTROPHILS % (AUTO) 82.1 % (43.0-81.0); PLATELET COUNT (AUTO) 345 K/uL (150-450); RED BLOOD CELL COUNT(AUTO) 3.02 MIL/uL (4.0-5.2); WHITE BLOOD COUNT (AUTO) 14.5 K/uL (4.3-11.0)
[2021-01-24] MEDS: methylPREDNISolone SOD SUCC 125 MG/2ML VIAL IV SCH (08:34)
[2021-01-24] MEDS: PANTOPRAZOLE 40 MG/PACK PACK NG SCH (08:34)
[2021-01-24] MEDS: ENOXAPARIN SODIUM 30 MG/0.3 ML DISP.SYRIN SQ SCH (08:59)
[2021-01-24 09:05] LABS: ALBUMIN 1.7 g/dL (3.4-5.0); BILIRUBIN,TOTAL 0.2 mg/dL (0.2-1.0); CALCIUM, SERUM 7.8 mg/dL (8.5-10.1); CREATININE 0.6 mg/dL (0.6-1.3); POTASSIUM 2.9 mmol/L (3.5-5.1); TOTAL PROTEIN, SERUM 5.4 g/dL (6.4-8.2)
[2021-01-24] MEDS ORDERED: POTASSIUM CHLORIDE 20 MEQ POWDER PACKET GT ONE (16:00)
--- NOTE | 2021-01-24 16:00 | NUR ---
Patient was discharged to [facility], in good stable condition. Report called in to Ana. Patient to continue IV abx x 3 days and informed RN. Med recon sent. On room air with 02 sat of 98%. G tube in place. midline continued for abx IV. Patient's skin pictures taken and placed in chart.
--- NOTE | 2021-01-24 16:26 | NUR ---
discharge via ambulnce in stable condition.
== END 2021-01-24 16:16 | DRG 871 ==
LOC: ER 10:08 → ICU 13:26 → TELE1 01-22 20:38 → MEDSG1 01-23 08:56
PROVIDERS: ADMIT Nurse Practitioner Acute Care; ATTEND Internal Medicine
PROC: 05H633Z Insertion of Infusion Device into Left Subclavian Vein, Percutaneous Approach (ICD-10-PCS; principal; 2021-01-20)
PROC: B547ZZA Ultrasonography of Left Subclavian Vein, Guidance (ICD-10-PCS; 2021-01-20)
PROC: 0DH63UZ Insertion of Feeding Device into Stomach, Percutaneous Approach (ICD-10-PCS; 2021-01-22)
DX: A41.9 Sepsis, unspecified organism (principal); E43 Unspecified severe protein-calorie malnutrition; J69.0 Pneumonitis due to inhalation of food and vomit; J96.01 Acute respiratory failure with hypoxia; I21.A1 Myocardial infarction type 2; N17.0 Acute kidney failure with tubular necrosis; E87.0 Hyperosmolality and hypernatremia; E87.2 Acidosis; R64 Cachexia; Z68.1 Body mass index [BMI] 19.9 or less, adult; J98.11 Atelectasis; J44.0 Chronic obstructive pulmonary disease with (acute) lower respiratory infection; L97.528 Non-pressure chronic ulcer of other part of left foot with other specified severity; R57.9 Shock, unspecified; J90 Pleural effusion, not elsewhere classified; R62.7 Adult failure to thrive; E83.39 Other disorders of phosphorus metabolism; E83.51 Hypocalcemia; D64.9 Anemia, unspecified; E87.6 Hypokalemia; F32.9 Major depressive disorder, single episode, unspecified; I10 Essential (primary) hypertension; Z86.16 Personal history of COVID-19; Z20.822 Contact with and (suspected) exposure to COVID-19; Z86.73 Personal history of transient ischemic attack (TIA), and cerebral infarction without residual deficits; F03.90 Unspecified dementia, unspecified severity, without behavioral disturbance, psychotic disturbance, mood disturbance, and anxiety; D72.829 Elevated white blood cell count, unspecified; M62.50 Muscle wasting and atrophy, not elsewhere classified, unspecified site; Z87.01 Personal history of pneumonia (recurrent); I35.0 Nonrheumatic aortic (valve) stenosis; M20.42 Other hammer toe(s) (acquired), left foot; M20.41 Other hammer toe(s) (acquired), right foot; M81.0 Age-related osteoporosis without current pathological fracture; K29.70 Gastritis, unspecified, without bleeding; K44.9 Diaphragmatic hernia without obstruction or gangrene; R13.10 Dysphagia, unspecified; G62.9 Polyneuropathy, unspecified; J98.4 Other disorders of lung
CPT/HCPCS: 36415; 36600; 43246; 71045-TC; 80048-TC; 80053-TC; 80061-TC; 80076-TC; 82728-TC; 82803-TC; 82962-TC; 83540-TC; 83605-TC; 83735-TC; 83880; 84100-TC; 84443-TC; 84484-TC; 85025-TC; 85730-TC; 87040-TC; 87081-TC; 93307-TC; 94660; 94664; 94668-TC; 94799-TC; 99082-TC; A6253; A9563; C9113; G0378; J0690; J1650; J1815; J1956; J2270; J2543; J2704; J2930; J3480; J3490; J7030; J7040; J7042; J7050; J7060; U0003

== ENCOUNTER 2021-03-16 11:55 | Inpatient (IN) | payer MEDICARE, OTHER ==
[~2021-03-16] VITALS: Ht 162.6 cm; Wt 45.8 kg
[~2021-03-16 11:55] MED LIST changes: +ACET325T53 PO; -AMIN30LI2 PO; -DIVA125C2 PO; -LACT-246 PO; +MEGE400O4 PO; +MULT-447 PO; -QUET25TA PO
--- NOTE | 2021-03-16 12:00 | NUR ---
PATIENT BIB PA FROM [facility]ARE [facility]ILITY DUE TO LEFT PLEURAL EFFUSION ON CXR. PATIENT NON VERBAL, O FACIAL GRIMACING NOTED. AWAITING MD DEL REAL
[2021-03-16 12:52] LABS: BASOPHILS % (AUTO) 0.3 % (0.0-2.0); EOSINOPHILS % (AUTO) 0.1 % (0.0-6.0); HEMATOCRIT 31 % (33-45); HEMOGLOBIN 9.9 g/dL (11.5-14.8); LYMPHOCYTES # (AUTO) 1.7 K/uL (0.8-4.8); LYMPHOCYTES % (AUTO) 13.1 % (20.0-44.0); MEAN CORPUSCULAR HGB CONC 32 g/dl (31.0-36.0); MEAN CORPUSCULAR VOLUME 92 fL (82-100); MONOCYTES % (AUTO) 7.7 % (2.0-12.0); NEUTROPHILS # (AUTO) 10.2 K/uL (1.8-8.9); NEUTROPHILS % (AUTO) 78.8 % (43.0-81.0); PLATELET COUNT (AUTO) 242 K/uL (150-450); RED BLOOD CELL COUNT(AUTO) 3.34 MIL/uL (4.0-5.2)
[2021-03-16 13:00] LABS: CALCIUM, SERUM 8.7 mg/dL (8.5-10.1); CARBON DIOXIDE 28 mmol/L (21-32); CHLORIDE 103 mmol/L (98-107); CREATININE 0.5 mg/dL (0.6-1.3); GLUCOSE 131 mg/dL (74-106); SODIUM SERUM 140 mmol/L (136-145); UREA NITROGEN, BLOOD 31 mg/dL (7-18)
[2021-03-16 13:05] LABS: ALANINE AMINOTRANSFERASE 15 U/L (12-78); ALBUMIN 2.3 g/dL (3.4-5.0); ALKALINE PHOSPHATASE 73 U/L (46-116); ASPARTATE AMINOTRANSFERASE 14 U/L (15-37); BILIRUBIN,DIRECT 0.1 mg/dL (0.0-0.2); BILIRUBIN,TOTAL 0.2 mg/dL (0.2-1.0); TOTAL PROTEIN, SERUM 7.1 g/dL (6.4-8.2)
[2021-03-16] MEDS ORDERED: CALC-261 PO (13:05)
--- NOTE | 2021-03-16 15:26 | NUR ---
Patient out to ct
--- NOTE | 2021-03-16 15:30 | NUR ---
CALLED NURSING SUP FOR TELE BED.
--- NOTE | 2021-03-16 16:17 | NUR ---
PER RN MOTOR COACH DRIVER PT CAN GO TO 103.
--- NOTE | 2021-03-16 16:38 | NUR ---
Report given to MACIEJ HERNÁNDEZ, Patient awaiting transfer to the floor.
[2021-03-16] MEDS ORDERED: ONDANSETRON HCL/PF 4 MG/2 ML VIAL IVP PRN (17:00)
[2021-03-16] MEDS ORDERED: ACETAMINOPHEN 325 MG TABLET PO PRN (17:00)
[2021-03-16] MEDS ORDERED: BISACODYL SUPP (10 MG) 10 MG/SUPP.RECT SUPP.RECT RC PRN (17:00)
[2021-03-16] MEDS ORDERED: Z GUARD REMEDY 2 OZ OINT TP PRN (17:00)
[2021-03-16] MEDS ORDERED: NA PHOS,M-B/NA PHOS,DI-BA 1 EA ENEMA RC PRN (17:00)
[2021-03-16 17:05] VITALS: BP 111/46
--- NOTE | 2021-03-16 17:05 | NUR ---
RN Notes Received patient from ER with dx of Pleural Effusion, Left. Patient came from [facility]. No SOB, No Respiratory distress, VS WNL, no s/sx of pain and discomfort. Patient is on O2 @ 2lpm via NC, tolerating current settings well. Patient has GTF which is clamped at this time per MD order. Patient is awake but confused. Head to toe skin assessment done with another RN, wound photos taken per protocol. IV on Right wrist 20 g patent and intact. secured entrance monitor applied, SR. Patient unable to comprehend admission, disease process and unit room orientation teaching due to confusion. MD aware and placed admission orders. Will continue to monitor.
[2021-03-16] MEDS: IV NS 0.9% 1,000 ML IV PRN (17:06)
--- NOTE | 2021-03-16 17:07 | NUR ---
Transferred to [facility] floor rm 103 in stable condition.
[2021-03-16] MEDS: MEMANTINE HCL 5 MG TABLET PO SCH (17:55)
[2021-03-16] MEDS: DOCUSATE SODIUM 100 MG CAPSULE PO SCH (17:55)
[2021-03-16] MEDS ORDERED: VANCOMYCIN 500 MG in IV D5W 100ml IV SCH (18:00)
[2021-03-16] MEDS: PIPERACILLIN /TAZOBACTAM 2.25 G in IV D5W 50 ML IV SCH ×2 (18:10→23:53)
[2021-03-16] MEDS: FERROUS SULFATE (325 MG) 325 MG/TAB TABLET PO SCH (18:11)
[2021-03-16] MEDS: CHOLECALCIFEROL 1,000 UNIT TABLET (VIT D3) PO SCH (18:11)
[2021-03-16] MEDS: ENOXAPARIN SODIUM 40 MG/0.4 ML DISP.SYRIN SQ SCH (18:12)
--- NOTE | 2021-03-16 19:20 | NUR ---
RN Closing note Patient comfortably resting in bed, awake and responsive but non-verbal. No SOB, no respiratory distress, still on O2 @ 2lpm via NC. GT and RT wrist IV intact and patent, IVF infusing as ordered. Kept patient clean and dry. All needs met. Endorsed care to incoming nurse Sebastian for continuity of care.
[2021-03-16 20:00] VITALS: BP 98/48
[2021-03-16] MEDS: OLANZAPINE 2.5 MG TABLET PO SCH (22:11)
[2021-03-16] MEDS: SENNOSIDES 8.6 MG TABLET PO SCH (22:11)
[2021-03-16] MEDS: DONEPEZIL 5 MG TABLET PO SCH (22:11)
[2021-03-17] VITALS: BP 108/60
[2021-03-17 04:00] VITALS: BP 117/63
[2021-03-17] MEDS: PIPERACILLIN /TAZOBACTAM 2.25 G in IV D5W 50 ML IV SCH ×3 (06:02→17:40)
[2021-03-17] MEDS: IV NS 0.9% 1,000 ML IV PRN ×2 (06:09→21:32)
[2021-03-17 06:13] LABS: BASOPHILS % (AUTO) 0.2 % (0.0-2.0); HEMATOCRIT 27 % (33-45); HEMOGLOBIN 8.9 g/dL (11.5-14.8); LYMPHOCYTES # (AUTO) 1.7 K/uL (0.8-4.8); MEAN CORPUSCULAR HGB CONC 33 g/dl (31.0-36.0); MEAN CORPUSCULAR VOLUME 92 fL (82-100); MONOCYTES # (AUTO) 0.8 K/uL (0.1-1.30); MONOCYTES % (AUTO) 8.3 % (2.0-12.0); NEUTROPHILS # (AUTO) 7.3 K/uL (1.8-8.9); NEUTROPHILS % (AUTO) 74.5 % (43.0-81.0); PLATELET COUNT (AUTO) 239 K/uL (150-450); RED BLOOD CELL COUNT(AUTO) 2.94 MIL/uL (4.0-5.2); WHITE BLOOD COUNT (AUTO) 9.8 K/uL (4.3-11.0)
[2021-03-17 06:52] LABS: CALCIUM, SERUM 8.5 mg/dL (8.5-10.1); CARBON DIOXIDE 26 mmol/L (21-32); CHLORIDE 107 mmol/L (98-107); CREATININE 0.5 mg/dL (0.6-1.3); GLUCOSE 102 mg/dL (74-106); IRON, SERUM 11 ug/dl (50-175); PHOSPHORUS 3.8 mg/dL (2.5-4.9); POTASSIUM 3.6 mmol/L (3.5-5.1); SODIUM SERUM 141 mmol/L (136-145); TOTAL IRON BINDING CAPACITY 180 ug/dl (250-450); UREA NITROGEN, BLOOD 22 mg/dL (7-18)
[2021-03-17 07:01] LABS: CHOLESTEROL 129 mg/dL (<200); HDL CHOLESTEROL 46 mg/dL (40-60); LDL 70 mg/dL (0-99); THYROID STIMULATING HORMONE 1.802 uIU/mL (0.358-3.74); TRIGLYCERIDES 82 mg/dL (30-150)
--- NOTE | 2021-03-17 07:10 | NUR ---
RN OPENING NOTES RECEIVED PT IN BED. ALERT, NON VERBAL. ON 2L O2 VIA NC, SATURATING @92%. NO SOB OR ANY S/S OF RESPIRATORY DISTRESS NOTED. SR ON TELE MONITOR. IV ACCESS ON R WRIST #20. INTACT AND PATENT, RUNNING NS @75ML/HR. SAFETY MEASURES IMPLEMENTED. CALL LIGHT WITHIN REACH. BED LOCKED AND IN LOWEST POSITION WITH SIDE RAILS UP X3. WILL CONTINUE TO MONITOR.
[2021-03-17] MEDS: DOCUSATE SODIUM 100 MG CAPSULE PO SCH ×2 (08:24→16:58)
[2021-03-17] MEDS: PANTOPRAZOLE 40 MG TABLET.DR PO SCH (08:24)
[2021-03-17] MEDS: MELOXICAM 7.5 MG TABLET PO SCH (08:24)
[2021-03-17] MEDS: MEMANTINE HCL 5 MG TABLET PO SCH ×2 (08:25→16:59)
[2021-03-17 09:06] VITALS: BP 115/55
[2021-03-17 12:00] VITALS: BP 119/56
[2021-03-17] MEDS ORDERED: ENSURE ENLIVE CHOC 237 ML CAN GT SCH (14:00)
[2021-03-17 16:00] VITALS: BP 143/62
[2021-03-17] MEDS: JEVITY 1.2 CAL 1,000 ML BOTTLE JT PRN (17:36)
[2021-03-17] MEDS: VANCOMYCIN HCL 0.75 GM in IV D5W 250 ML IV SCH (17:37)
[2021-03-17] MEDS: ARGININE/GLUTAMINE/CALCIUM BMB 1 EACH POWD.PACK GT SCH (17:37)
[2021-03-17] MEDS: FERROUS SULFATE (325 MG) 325 MG/TAB TABLET PO SCH (17:40)
[2021-03-17] MEDS: CHOLECALCIFEROL 1,000 UNIT TABLET (VIT D3) PO SCH (17:40)
--- NOTE | 2021-03-17 18:49 | NUR ---
RN CLOSING NOTES NO SIGNIFICANT CHANGES THROUGHOUT THE SHIFT. NO SOB OR ANY DISTRESS NOTED. NO PAIN REPORTED AT THIS TIME. KEPT CLEAN AND COMFORTABLE. ALL DUE MEDS GIVEN. NEEDS ATTENDED. SAFETY MEASURES IN PLACE. WILL ENDORSE TO NIGHT RN FOR PHI.
[2021-03-17 20:00] VITALS: BP 91/40
[2021-03-17] MEDS: OLANZAPINE 2.5 MG TABLET PO SCH (21:24)
[2021-03-17] MEDS: DONEPEZIL 5 MG TABLET PO SCH (21:24)
[2021-03-17] MEDS: ENOXAPARIN SODIUM 40 MG/0.4 ML DISP.SYRIN SQ SCH (21:24)
[2021-03-17] MEDS: SENNOSIDES 8.6 MG TABLET PO SCH (21:24)
[2021-03-18] VITALS: BP 111/55
[2021-03-18] MEDS: PIPERACILLIN /TAZOBACTAM 2.25 G in IV D5W 50 ML IV SCH ×5 (00:41→23:03)
[2021-03-18 04:00] VITALS: BP 95/52
--- NOTE | 2021-03-18 07:42 | NUR ---
RN OPENING NOTES Pt is asleep, arousable to stimuli, on 2 liters 02 via NC, no respiratory distress, no SOB. Ongoing enteral feeding, HOB maintained elevated at semi-fowlers position. On hydration NS @ 75cc/hr. Safety precautions implemented, bed locked in lowest position, call light within reach.
[2021-03-18 08:00] VITALS: BP 101/44
[2021-03-18] MEDS: PANTOPRAZOLE 40 MG TABLET.DR PO SCH (08:06)
[2021-03-18] MEDS: MEMANTINE HCL 5 MG TABLET PO SCH ×2 (08:06→17:03)
[2021-03-18] MEDS: MELOXICAM 7.5 MG TABLET PO SCH (08:06)
[2021-03-18] MEDS: PROSOURCE / PROSTAT (PYXIS) 30 ML UDC GT SCH (08:07)
[2021-03-18] MEDS: ARGININE/GLUTAMINE/CALCIUM BMB 1 EACH POWD.PACK GT SCH ×2 (08:07→16:43)
[2021-03-18] MEDS: DOCUSATE SODIUM 100 MG CAPSULE PO SCH ×2 (08:10→17:06)
[2021-03-18 08:24] LABS: BASOPHILS % (AUTO) 0.1 % (0.0-2.0); HEMATOCRIT 29 % (33-45); HEMOGLOBIN 9.5 g/dL (11.5-14.8); LYMPHOCYTES # (AUTO) 1.5 K/uL (0.8-4.8); LYMPHOCYTES % (AUTO) 21.4 % (20.0-44.0); MEAN CORPUSCULAR HGB CONC 32 g/dl (31.0-36.0); MEAN CORPUSCULAR VOLUME 92 fL (82-100); MONOCYTES # (AUTO) 0.4 K/uL (0.1-1.30); NEUTROPHILS % (AUTO) 72.5 % (43.0-81.0); PLATELET COUNT (AUTO) 259 K/uL (150-450); RED BLOOD CELL COUNT(AUTO) 3.19 MIL/uL (4.0-5.2); WHITE BLOOD COUNT (AUTO) 6.9 K/uL (4.3-11.0)
[2021-03-18 08:34] LABS: CALCIUM, SERUM 8.1 mg/dL (8.5-10.1); CARBON DIOXIDE 25 mmol/L (21-32); CHLORIDE 110 mmol/L (98-107); CREATININE 0.5 mg/dL (0.6-1.3); GLUCOSE 136 mg/dL (74-106); POTASSIUM 3.5 mmol/L (3.5-5.1); SODIUM SERUM 141 mmol/L (136-145); UREA NITROGEN, BLOOD 22 mg/dL (7-18)
[2021-03-18 09:07] LABS: FERRITIN 292 ng/mL (8-388)
[2021-03-18] MEDS: ACETYLCYSTEINE 20% SOLN 800 MG/4 ML VIAL NEB SCH ×3 (11:26→23:30)
[2021-03-18] MEDS: IV NS 0.9% 1,000 ML IV PRN (11:59)
[2021-03-18 12:00] VITALS: BP 100/59
--- NOTE | 2021-03-18 12:39 | NUR ---
Spoke to BETTY Castillo @ ext. [phone] @ 11:40am. Consent is not signed so thoracentesis cannot be yet. Also patient is on 40mg Lovanox. Last dose given 03/17/21 @ 9:30pm as per Jonathan. Needs to hold blood thinner 12 hours prior to procedure.
--- NOTE | 2021-03-18 14:30 | NUR ---
RT Mucomyst not given at this time, too close from last scheduled administration. No SOB or respiratory distress noted.
[2021-03-18 16:00] VITALS: BP 110/52
[2021-03-18] MEDS: FERROUS SULFATE (325 MG) 325 MG/TAB TABLET PO SCH (17:03)
[2021-03-18] MEDS: CHOLECALCIFEROL 1,000 UNIT TABLET (VIT D3) PO SCH (17:03)
[2021-03-18] MEDS: JEVITY 1.2 CAL 1,000 ML BOTTLE JT PRN (17:07)
[2021-03-18] MEDS: VANCOMYCIN HCL 0.75 GM in IV D5W 250 ML IV SCH (18:00)
--- NOTE | 2021-03-18 18:41 | NUR ---
RN CLOSING NOTES Pt is Alert to stimuli, not oriented, verbal but confused. Telereading sinus rhythm. Ongoing enteral feeding @ 45cc/hr.IV Hydration 75cc/hr, right wrist IV site with no s/sx of infiltration. AM/PM care rendered, wound care basic tx rendered, repositioned accordingly. Safety precautions implemented, bed locked in lowest position, call light within reach. Attempted to contact [employer] guardian for consent-no answer. signed consent for thoracentesis, per radiology hold HS Lovenox dose-endorsed accordingly. Vancomycin dose 1800 not given, trough drawn around 1730, still pending results. Pharmacy notified stated to not administered until results available, will endorse to incoming shift.
--- NOTE | 2021-03-18 19:30 | NUR ---
RN NOTE RECEIVED PATIENT IN BED. PATIENT IS CONFUSED. TOLERATING ROOM AIR. RESPIRATIONS ARE EVEN AND UNLABORED. NO S/SS OB NOTED AT THIS TIME. NO C/O PAIN AT THIS TIME. EXTERNAL TELE MONITOR READ SINUS RHYTHM. IN NO APPARENT DISTRESS. IV ACCESS IN RIGHT WRIST RUNNING NS@75ML/HR. GTUBE IS PRESENT, NO RESIDUAL, FLUSHED WITHOUT RESISTANCE RUNNING FEEDING JEVITY @45ML/HR. BED IS LOW AND LOCKED, HOB ELEVATED IN SEMI FOWLERS, SIDE RAILS UP X2, CALL LIGHT WITHIN REACH. WILL CONTINUE TO MONITOR THROUGHOUT SHIFT.
[2021-03-18 20:00] VITALS: BP 115/45
[2021-03-18] MEDS: ENOXAPARIN SODIUM 40 MG/0.4 ML DISP.SYRIN SQ SCH (21:00)
[2021-03-18] MEDS: OLANZAPINE 2.5 MG TABLET PO SCH (22:01)
[2021-03-18] MEDS: DONEPEZIL 5 MG TABLET PO SCH (22:01)
[2021-03-18] MEDS: SENNOSIDES 8.6 MG TABLET PO SCH (22:01)
--- NOTE | 2021-03-18 22:02 | NUR ---
RN NOTE DID NOT ADMINISTER LOVENOX 40MG D/T PATIENT SCHEDULED FOR PROCEDURE FOR THORACENTESIS TOMORROW.
[2021-03-19] VITALS: BP 120/62
[2021-03-19] MEDS: ACETYLCYSTEINE 20% SOLN 800 MG/4 ML VIAL NEB SCH ×4 (00:30→23:05)
[2021-03-19] MEDS: IV NS 0.9% 1,000 ML IV PRN ×2 (01:01→10:21)
[2021-03-19 04:00] VITALS: BP 131/67
[2021-03-19] MEDS: PIPERACILLIN /TAZOBACTAM 2.25 G in IV D5W 50 ML IV SCH ×4 (05:26→23:29)
[2021-03-19 06:04] LABS: OCCULT BLOOD STOOL POSITIVE (NEGATIVE)
[2021-03-19 07:06] LABS: CANCER AG, 125 47.8 U/mL (0.0-38.1)
--- NOTE | 2021-03-19 07:11 | NUR ---
RN NOTE ON COVID ISOLATION. PATIENT RESTING IN BED. CONFUSED. REMAINS TOLERATING ROOM AIR. NO RESP DISTRESS. NO PAIN. TELE MONITOR READS SINUS RHYTHM. NO DISTRESS. IV ACCESS MAINTAINED IN RIGHT WRIST RUNNING NS@75ML/HR. GTUBE RUNNING JEVITY @45ML/HR. BED REMAINS LOW AND LOCKED, HOB ELEVATED IN SEMI FOWLERS, SIDE RAILS UP X2, CALL LIGHT WITHIN REACH. WILL ENDORSE TO ONCOMING SHIFT.
--- NOTE | 2021-03-19 07:30 | NUR ---
PLANT CONTROL OPERATOR OPENING NOTES RECEIVED PT IN BED. ALERT, NON VERBAL. CONFUSED. ON ROOM AIR, O2 SAT AT 97%. NO SOB, RESPIRATION UNLABORED. SR HR 79 ON TELE MONITOR. NO SIGNS OF PAIN/DISCOMFORT. IV ACCESS ON R WRIST #20 WITH NS @75ML/HR RUNNING, SIT E CLEAR. SEE NURSING FLOWSHEET FOR MULTIPLE SKIN ISSUES. FOR WOUND CONSULT. SAFETY MEASURES IMPLEMENTED. CALL LIGHT WITHIN REACH. BED LOCKED AND IN LOWEST POSITION WITH SIDE RAILS UP X3. WILL CONTINUE TO MONITOR.
[2021-03-19 08:00] VITALS: BP 140/65
[2021-03-19] MEDS: PANTOPRAZOLE 40 MG TABLET.DR PO SCH (08:14)
[2021-03-19] MEDS: DOCUSATE SODIUM 100 MG CAPSULE PO SCH ×2 (08:28→16:10)
[2021-03-19] MEDS: MEMANTINE HCL 5 MG TABLET PO SCH ×2 (08:28→16:10)
[2021-03-19] MEDS: MELOXICAM 7.5 MG TABLET PO SCH (08:28)
[2021-03-19] MEDS: PROSOURCE / PROSTAT (PYXIS) 30 ML UDC GT SCH (08:29)
[2021-03-19] MEDS: ARGININE/GLUTAMINE/CALCIUM BMB 1 EACH POWD.PACK GT SCH ×2 (08:32→16:04)
[2021-03-19] MEDS: VANCOMYCIN HCL 0.75 GM in IV D5W 250 ML IV SCH ×2 (08:39→20:51)
--- NOTE | 2021-03-19 09:30 | NUR ---
RN NOTES DUE MEDS GIVEN
[2021-03-19 12:00] VITALS: BP 132/69
--- NOTE | 2021-03-19 13:15 | NUR ---
RN NOTES S/P USG THORACENTESIS, 400 ML OUTPUT SPECIMEN SENT TO LAB
[2021-03-19 16:00] VITALS: BP 153/75
[2021-03-19] MEDS: JEVITY 1.2 CAL 1,000 ML BOTTLE JT PRN (16:04)
[2021-03-19] MEDS: FERROUS SULFATE (325 MG) 325 MG/TAB TABLET PO SCH (17:11)
[2021-03-19] MEDS: CHOLECALCIFEROL 1,000 UNIT TABLET (VIT D3) PO SCH (17:12)
--- NOTE | 2021-03-19 18:52 | NUR ---
RN Closing note Patient comfortably resting in bed, awake and responsive but non-verbal. No SOB, no respiratory distress, still on room air. GT and RT wrist IV intact and patent, IVF infusing as ordered. Kept patient clean and dry. All needs met at this time.
[2021-03-19 20:00] VITALS: BP 129/64
--- NOTE | 2021-03-19 20:00 | NUR ---
RN NOTE RECEIVED PATIENT IN BED. ALERT BUT CONFUSED. TOLERATING ROOM AIR. RESPIRATIONS ARE EVEN AND UNLABORED. NO S/S SOB NOTED AT THIS TIME. NO C/O PAIN AT THIS TIME. EXTERNAL TELE MONITOR READ SINUS RHYTHM. IN NO APPARENT DISTRESS. IV ACCESS IN RIGHT WRIST RUNNING NS@75ML/HR. GTUBE IS PRESENT, NO RESIDUAL, FLUSHED WITHOUT RESISTANCE RUNNING FEEDING JEVITY @45ML/HR. BED IS LOW AND LOCKED, HOB ELEVATED IN SEMI FOWLERS, SIDE RAILS UP X2, CALL LIGHT WITHIN REACH. WILL CONTINUE TO MONITOR THROUGHOUT SHIFT.
[2021-03-19] MEDS: DONEPEZIL 5 MG TABLET PO SCH (22:07)
[2021-03-19] MEDS: SENNOSIDES 8.6 MG TABLET PO SCH (22:07)
[2021-03-19] MEDS: OLANZAPINE 2.5 MG TABLET PO SCH (22:07)
[2021-03-19] MEDS: ENOXAPARIN SODIUM 40 MG/0.4 ML DISP.SYRIN SQ SCH (22:08)
[2021-03-20] VITALS: BP 123/63
[2021-03-20 00:15] LABS: BASOPHILS % (AUTO) 0.4 % (0.0-2.0); HEMATOCRIT 29 % (33-45); HEMOGLOBIN 9.5 g/dL (11.5-14.8); LYMPHOCYTES # (AUTO) 1.7 K/uL (0.8-4.8); LYMPHOCYTES % (AUTO) 21.7 % (20.0-44.0); MEAN CORPUSCULAR HGB CONC 32 g/dl (31.0-36.0); MEAN CORPUSCULAR VOLUME 91 fL (82-100); MONOCYTES # (AUTO) 0.6 K/uL (0.1-1.30); MONOCYTES % (AUTO) 7.8 % (2.0-12.0); NEUTROPHILS # (AUTO) 5.6 K/uL (1.8-8.9); NEUTROPHILS % (AUTO) 70.1 % (43.0-81.0); PLATELET COUNT (AUTO) 314 K/uL (150-450); RED BLOOD CELL COUNT(AUTO) 3.22 MIL/uL (4.0-5.2)
[2021-03-20 00:30] LABS: CARBON DIOXIDE 25 mmol/L (21-32); CHLORIDE 110 mmol/L (98-107); CREATININE 0.6 mg/dL (0.6-1.3); GLUCOSE 141 mg/dL (74-106); POTASSIUM 3.5 mmol/L (3.5-5.1); SODIUM SERUM 144 mmol/L (136-145); UREA NITROGEN, BLOOD 23 mg/dL (7-18)
[2021-03-20 04:00] VITALS: BP 108/64
[2021-03-20] MEDS: IV NS 0.9% 1,000 ML IV PRN (05:14)
[2021-03-20] MEDS: PIPERACILLIN /TAZOBACTAM 2.25 G in IV D5W 50 ML IV SCH ×2 (05:22→11:57)
[2021-03-20] MEDS: ACETYLCYSTEINE 20% SOLN 800 MG/4 ML VIAL NEB SCH ×2 (07:18→14:32)
--- NOTE | 2021-03-20 07:18 | NUR ---
RN NOTE PATIENT RESTING IN BED. CONFUSED. REMAINS TOLERATING ROOM AIR. NO RESP DISTRESS. NO PAIN. TELE MONITOR READS SINUS RHYTHM. NO DISTRESS. IV ACCESS IN LEFT FOREARM#20 RUNNING NS@75ML/HR. GTUBE RUNNING JEVITY @45ML/HR. BED REMAINS LOW AND LOCKED, HOB ELEVATED IN SEMI FOWLERS, SIDE RAILS UP X2, CALL LIGHT WITHIN REACH. WILL ENDORSE TO ONCOMING SHIFT.
--- NOTE | 2021-03-20 07:30 | NUR ---
PAGINATOR OPENING NOTES RECEIVED PT IN BED. ALERT, NON VERBAL. CONFUSED. ON ROOM AIR, O2 SAT AT 97%. NO SOB, RESPIRATION UNLABORED. SR, BBB, PVC HR 85 ON TELE MONITOR. NO SIGNS OF PAIN/DISCOMFORT. IV ACCESS ON LEFT FA #20 WITH NS @75ML/HR RUNNING, SITE CLEAR. SEE NURSING FLOWSHEET FOR MULTIPLE SKIN ISSUES. FOR WOUND CONSULT. SAFETY MEASURES IMPLEMENTED. CALL LIGHT WITHIN REACH. BED LOCKED AND IN LOWEST POSITION WITH SIDE RAILS UP X3. WILL CONTINUE TO MONITOR.
[2021-03-20 07:37] LABS: CALCIUM, SERUM 8.3 mg/dL (8.5-10.1); CARBON DIOXIDE 27 mmol/L (21-32); CHLORIDE 107 mmol/L (98-107); CREATININE 0.4 mg/dL (0.6-1.3); GLUCOSE 145 mg/dL (74-106); POTASSIUM 3.4 mmol/L (3.5-5.1); SODIUM SERUM 143 mmol/L (136-145); UREA NITROGEN, BLOOD 19 mg/dL (7-18)
[2021-03-20 08:00] VITALS: BP 125/63
[2021-03-20] MEDS: PANTOPRAZOLE 40 MG TABLET.DR PO SCH (08:07)
[2021-03-20] MEDS: VANCOMYCIN HCL 0.75 GM in IV D5W 250 ML IV SCH (08:15)
[2021-03-20] MEDS: DOCUSATE SODIUM 100 MG CAPSULE PO SCH (08:16)
[2021-03-20] MEDS: MELOXICAM 7.5 MG TABLET PO SCH (08:16)
[2021-03-20] MEDS: MEMANTINE HCL 5 MG TABLET PO SCH (08:16)
[2021-03-20] MEDS: ARGININE/GLUTAMINE/CALCIUM BMB 1 EACH POWD.PACK GT SCH (08:16)
[2021-03-20] MEDS: PROSOURCE / PROSTAT (PYXIS) 30 ML UDC GT SCH (08:19)
--- NOTE | 2021-03-20 09:30 | NUR ---
RN NOTES DUE MEDS GIVEN
[2021-03-20] MEDS ORDERED: POTASSIUM CHLORIDE 20 MEQ POWDER PACKET GT SCH (10:00)
[2021-03-20 12:00] VITALS: BP 110/58
[2021-03-20 12:06] LABS: *SPE A/G RATIO 0.7 (0.7-1.7); *SPE ALPHA-1-GLOBULIN 0.3 g/dL (0.0-0.4); *SPE ALPHA-2-GLOBULIN 0.9 g/dL (0.4-1.0); *SPE BETA GLOBULIN 0.9 g/dL (0.7-1.3); *SPE M-SPIKE 0.5 g/dL (Not Observed)
--- NOTE | 2021-03-20 15:06 | NUR ---
RN NOTES REPORT GIVEN TO [facility] NURSING STAFF AT FACILITY. PATIENT EVENT COORDINATOR MARKETING AND SALES AT 1600
[2021-03-20 16:00] VITALS: BP 115/66
--- NOTE | 2021-03-20 16:42 | NUR ---
SUPERVISOR STRIPPING NOTES PATIENT DISCHARGED TO [facility] PER MD IN STABLE CONDITION. PROVIDED DC INSTRUCTIONS, MED RECON LIST AND HEALTH TEACHINGS.PATIENT TO BE FOLLOWED UP BY FACILITY MD. IV ACCESS TO LEFT FOREARM G 20 FLUSHES WELL, SITE CLEAR. G TUBE FLUSHED AND CLAMPED. ALL PAPER WORKS SIGNED BY 2 NURSES, PT UNABLE TO SIGN. NO BELONGINGS. REPORT CALLED TO [facility] AT RECEIVING FACILITY EARLIER. PT ENDORSED TO AMBULANCE CREW ACCORDINGLY. PATIENT REFUSED PHOTOS OF SKIN ISSUES, STARTS TO PINCH AND SLAPS HANDS WHEN ATTEMPTING TO DO SO.
== END 2021-03-20 16:44 | DRG 871 ==
LOC: ER 11:57 → TELE1 16:20 → MEDSG1 03-20 07:54
PROVIDERS: ADMIT Nurse Practitioner Acute Care; ATTEND Nurse Practitioner Acute Care
PROC: 0W9B3ZZ Drainage of Left Pleural Cavity, Percutaneous Approach (ICD-10-PCS; principal; 2021-03-19)
DX: A41.9 Sepsis, unspecified organism (principal); E43 Unspecified severe protein-calorie malnutrition; R53.2 Functional quadriplegia; J69.0 Pneumonitis due to inhalation of food and vomit; D68.59 Other primary thrombophilia; G93.40 Encephalopathy, unspecified; Z68.1 Body mass index [BMI] 19.9 or less, adult; J90 Pleural effusion, not elsewhere classified; J98.11 Atelectasis; R64 Cachexia; D63.8 Anemia in other chronic diseases classified elsewhere; I25.10 Atherosclerotic heart disease of native coronary artery without angina pectoris; Z20.822 Contact with and (suspected) exposure to COVID-19; Z86.16 Personal history of COVID-19; Z93.1 Gastrostomy status; D50.9 Iron deficiency anemia, unspecified; F02.80 Dementia in other diseases classified elsewhere, unspecified severity, without behavioral disturbance, psychotic disturbance, mood disturbance, and anxiety; G30.9 Alzheimer's disease, unspecified; R26.9 Unspecified abnormalities of gait and mobility; R27.8 Other lack of coordination; I35.0 Nonrheumatic aortic (valve) stenosis; M81.0 Age-related osteoporosis without current pathological fracture; F20.9 Schizophrenia, unspecified; F41.9 Anxiety disorder, unspecified; Z79.899 Other long term (current) drug therapy; K21.9 Gastro-esophageal reflux disease without esophagitis; Z74.09 Other reduced mobility; L89.90 Pressure ulcer of unspecified site, unspecified stage; K44.9 Diaphragmatic hernia without obstruction or gangrene; K57.30 Diverticulosis of large intestine without perforation or abscess without bleeding
CPT/HCPCS: 36415; 71045-TC; 71250-TC; 76856-TC; 80048-TC; 80061-TC; 80076-TC; 80202-TC; 82272-TC; 82378; 82728-TC; 82746; 82784; 82962-TC; 83540-TC; 83615-TC; 84100-TC; 84155; 84165; 84443-TC; 84484-TC; 85025-TC; 85610-TC; 85730-TC; 86300; 86304; 86334; 87070-TC; 87075-TC; 87081-TC; 92526; 92611-TC; 94667-TC; 94668-TC; A4217; A6403; C9803; G0378; J1650; J2543; J3370; J7030; J7050; J7060; U0003

== ENCOUNTER 2022-03-18 12:50 | Inpatient (IN) | payer MEDICARE, OTHER ==
[~2022-03-18] VITALS: Ht 162.6 cm; Wt 44.7 kg
[~2022-03-18 12:50] MED LIST changes: +CALC-261 PO; -CRAN425C6 PO; -MEGE400O4 PO; -MIRT-121 PO
--- NOTE | 2022-03-18 13:12 | NUR ---
MOVE SHEET SUBMITTED.
[2022-03-18] MEDS ORDERED: LACT-209 GT (13:29)
[2022-03-18] MEDS ORDERED: FERR300L GT (13:29)
[2022-03-18] MEDS ORDERED: ACET-868 GT (13:29)
[2022-03-18] MEDS ORDERED: OMEP20CA15 GT (13:29)
[2022-03-18] MEDS ORDERED: BISA10SU11 RC (13:29)
[2022-03-18] MEDS ORDERED: SENN-261 GT (13:29)
[2022-03-18] MEDS ORDERED: MEMA10TA GT (13:29)
[2022-03-18] MEDS ORDERED: CEFT1VIA15 IV (13:29)
[2022-03-18] MEDS ORDERED: DONE10TA11 GT (13:29)
[2022-03-18] MEDS ORDERED: AZIT500T GT (13:29)
[2022-03-18] MEDS ORDERED: MELO-105 GT (13:29)
[2022-03-18] MEDS ORDERED: MAGN400O6 GT (13:29)
[2022-03-18] MEDS ORDERED: MULT-447 GT (13:29)
--- NOTE | 2022-03-18 13:39 | NUR ---
COVID SWAB COLLECTED AND SENT TO LAB
--- NOTE | 2022-03-18 13:39 | NUR ---
FORMING AND ASSEMBLING SUPERVISOR AT BEDSIDE FOR XRAY
[2022-03-18 13:56] LABS: BASOPHILS % (AUTO) 0.1 % (0.0-2.0); EOSINOPHILS % (AUTO) 3.9 % (0.0-6.0); HEMATOCRIT 35 % (33-45); LYMPHOCYTES # (AUTO) 1.8 K/uL (0.8-4.8); LYMPHOCYTES % (AUTO) 12.8 % (20.0-44.0); MEAN CORPUSCULAR HGB CONC 32 g/dl (31.0-36.0); MEAN CORPUSCULAR VOLUME 95 fL (82-100); MONOCYTES # (AUTO) 0.9 K/uL (0.1-1.30); MONOCYTES % (AUTO) 6.7 % (2.0-12.0); NEUTROPHILS # (AUTO) 10.9 K/uL (1.8-8.9); NEUTROPHILS % (AUTO) 76.5 % (43.0-81.0); PLATELET COUNT (AUTO) 219 K/uL (150-450); RED BLOOD CELL COUNT(AUTO) 3.62 MIL/uL (4.0-5.2); WHITE BLOOD COUNT (AUTO) 14.2 K/uL (4.3-11.0)
--- NOTE | 2022-03-18 13:59 | NUR ---
URINE SAMPLE COLLECTED AND SENT TO LAB
[2022-03-18 14:16] LABS: CALCIUM, SERUM 8.8 mg/dL (8.5-10.1); CARBON DIOXIDE 24 mmol/L (21-32); CHLORIDE 108 mmol/L (98-107); CREATININE 0.6 mg/dL (0.6-1.3); GLUCOSE 101 mg/dL (74-106); POTASSIUM 4.6 mmol/L (3.5-5.1); SODIUM SERUM 141 mmol/L (136-145); UREA NITROGEN, BLOOD 21 mg/dL (7-18)
[2022-03-18 14:33] LABS: BILIRUBIN,URINE NEGATIVE (NEGATIVE); COLOR,URINE YELLOW (YELLOW); LEUKOCYTE ESTERASE ,URINE NEGATIVE (NEGATIVE); NITRITE, URINE NEGATIVE (NEGATIVE); PH,URINE 6.5 (5.0-8.0); PROTEIN,URINE NEGATIVE (NEGATIVE); UGLUCOSE NEGATIVE (NEGATIVE); UROBILINOGEN,URINE 0.2 EU/dL (0.2)
[2022-03-18] MEDS ORDERED: VANCOMYCIN 1 GM in IV D5W 250 ML IV ONE (15:00)
[2022-03-18] MEDS ORDERED: CEFEPIME 1 GM in IV D5W 50 ML IV ONE (15:00)
[2022-03-18 15:09] LABS: BACTERIA,URINE None seen /HPF (None Seen); RBC,URINE 21-50 /HPF (0-2); WBC,URINE 0-2 /HPF (0-3)
--- NOTE | 2022-03-18 15:36 | NUR ---
REPORT GIVEN TO SHERMAN HERNÁNDEZ. PT AWAITNG TRANSFER TO FLOOR.
[2022-03-18] MEDS ORDERED: MAG HYDROX/AL HYDROX/SIMETH 30 ML UDC PO PRN (16:30)
[2022-03-18] MEDS ORDERED: IV NS 0.9% 1,000 ML IV PRN (16:30)
[2022-03-18] MEDS ORDERED: Z GUARD REMEDY 4 OZ OINT TP PRN (16:30)
[2022-03-18] MEDS ORDERED: ACETAMINOPHEN 325 MG TABLET MC PRN (16:30)
[2022-03-18] MEDS ORDERED: MAGNESIUM HYDROXIDE 30 ML UDC GT PRN (16:30)
[2022-03-18] MEDS ORDERED: ACETAMINOPHEN 325 MG TABLET PO PRN (16:30)
[2022-03-18] MEDS ORDERED: ONDANSETRON HCL/PF 4 MG/2 ML VIAL IVP PRN (16:30)
[2022-03-18] MEDS ORDERED: MAGNESIUM HYDROXIDE 30 ML UDC PO PRN (16:30)
[2022-03-18] MEDS ORDERED: BISACODYL SUPP (10 MG) 10 MG/SUPP.RECT SUPP.RECT RC PRN (16:30)
[2022-03-18] MEDS ORDERED: ENOXAPARIN SODIUM 30 MG/0.3 ML DISP.SYRIN SQ SCH (17:00)
--- NOTE | 2022-03-18 17:26 | NUR ---
PT TRANSFERRED TO [facility] VIA [facility] ACLS PROTOCOL. WARM HANDOFF GIVEN TO BETTY MONSIVAIS.
[2022-03-18 17:40] VITALS: BP 133/50
--- NOTE | 2022-03-18 17:40 | NUR ---
ADMITTING RN NOTES: ADMITTED A 86YO FEMALE PATIENT IN TELEMETRY UNIT FROM EMERGENCY DEPT @1740. PATIENT A/O X 1 NON VERBAL EASILY AROUSED WITH STIMULI. NO SOB OR CARDIAC DISTRESS NOTED. ON RECREATION LEADER WITH CURRENT READING OF: NORMAL SINUS RHYTHM @81 BPM. BODY ASSESSMENT DONE WITH SKIN ISSUES, PHOTOS TAKEN AND FILED TO PATIENT'S CHART. WILL BE ON ENTERAL FEEDING JEVITY 1.2 @60ML/HR X 20HOURS UNABLE TO START. LUNGS NOTED WITH WHEEZES UPON AUSCULTATION. ABDOMEN SOFT AND NOT DISTENDED. NOTED WITH G-TUBE PATENT AND INTACT AND FLUSHING WELL. IV ACCESS ON RIGHT FOREARM G20 PATENT AND INTACT AND SALINE LOCKED. NO BELONGINGS TAKEN WITH THE PATIENT. SAFETY MEASURES INITIATED: BED LOCKED AND IN LOWEST POSITION, SIDE RAILS UP X3. CALL LIGHT IN EASY REACH. WILL MONITOR ACCORDINGLY. KEPT RESTED AND COMFORTABLE.
[2022-03-18 18:00] VITALS: BP 133/50
[2022-03-18] MEDS: MULTIVITAMINS,THERAGRAN 1 UDTAB TABLET GT SCH (18:26)
[2022-03-18] MEDS: FERROUS SULFATE UDC 300 MG/5 ML UDC GT SCH (18:26)
[2022-03-18] MEDS: MEMANTINE HCL 5 MG TABLET GT SCH (18:27)
[2022-03-18] MEDS: ZOSYN IVPB 3.375 G in IV D5W 50ml IV SCH (18:43)
--- NOTE | 2022-03-18 19:27 | NUR ---
RN NOTES: INFORMED DR ZAMORA THAT PT HAD TWO EPISODES OF VTACH, 7:19PM FOR 30 SECONDS AND 7:19 FOR 10-15 SECONDS WITH HR BETWEEN 150-160S. MD ORDERED STAT 12 LEAD EKG AND MONITOR PATIENT CLOSELY. ORDER NOTED AND CARRIED OUT.
--- NOTE | 2022-03-18 19:34 | NUR ---
RN NOTES: CURRENTLY PT NOT IN DISTRESS. CURRENT READING NSR 85BPM, PT ASLEEP.
[2022-03-18 20:00] VITALS: BP 131/55
--- NOTE | 2022-03-18 20:02 | NUR ---
RN OPENING NOTES; PT RECEIVED IN SLEEPING BUT EASY TO AROUSED,AOX1 WITH CONFUSION,NO SIGN SOB/DISTRESS AT THIS TIME.TELE MONITOR READING SR 85.NO SIGN OF PAIN/DISCOMFORT AT THIS TIME.SAFETY MEASURED IN PLACE,CALL LIGHT WITHIN REACH.WILL CONTINUE TO MONITOR.
[2022-03-18] MEDS ORDERED: FUROSEMIDE 20 MG/2 ML VIAL IV SCH (20:30)
[2022-03-18] MEDS: ASPIRIN 81 MG TAB.CHEW PO SCH (20:52)
[2022-03-18] MEDS: JEVITY 1.2 CAL 1,000 ML BOTTLE GT PRN (20:54)
[2022-03-18] MEDS ORDERED: AMIODARONE 450 MG in IV D5W 241 ML IV PRN (21:00)
[2022-03-18] MEDS ORDERED: AMIODARONE 150 MG in IV D5W 100 ML IV ONE (21:00)
[2022-03-18] MEDS ORDERED: DILTIAZEM HCL 50 MG IV IV ONE (21:00)
[2022-03-18] MEDS: DONEPEZIL 5 MG TABLET GT SCH (21:04)
[2022-03-18] MEDS: SENNOSIDES 8.6 MG TABLET GT SCH (21:04)
--- NOTE | 2022-03-18 21:10 | NUR ---
RN NOTES; EKG RESULT WAS SENT TO [facility] W.WITH A NEW OEDER CARDARON 150MG IN IV D5W 100ML @618ML/HR.I TEXTED Pat HERZOG THAT WE CAN'T GIVE IV CARDARON,JOSE CH GIVE A ORDER TRANSFER TO [facility].
--- NOTE | 2022-03-18 22:15 | NUR ---
RN NOTES; PT WAS TRANSFER TO [facility] WITH STABLE CONDITION.
[2022-03-18] MEDS ORDERED: AMIODARONE 150 MG/3 ML VIAL IV ONE ×2 (22:40→23:08)
--- NOTE | 2022-03-18 22:50 | NUR ---
RN Note Received patient from BETTY Sapp, Patient in room 114-2. Patient transferred due to need for Amiodarone drip. Patient is an 86 year old female. Opens eyes to touch, non-verbal. Breathing even and unlabored. On 2L/min via nasal cannula with O2 saturation of 95 percent. Skin is warm and dry to touch. Received with Bilateral mittens, removed to perform passive range of motion. Noted with Left forearm PIV and Right forearm PIV. Both not patent. Removed. Reinserted 22g piv on left hand with good blood return. Patient turned and repositioned. Bed low, in locked position, WIll continue to monitor.
--- NOTE | 2022-03-18 23:21 | NUR ---
RN Note Patient was started on Amiodarone drip due to EKG result of A-fib. Informed wall taper, adelfo, Patient HR of 80-90 bpm. Per MD, ok to start amiodarone. Amiodarone bolus was started and noted patients face and chest turned red. Amiodarone bolus stopped, Rapid response initiated. VS taken. BP: 142/53 HR 73 BPM. Patient on 4L/min via nasal cannula with saturation of 97 percent. Informed Adelfo. per MD order, Benadryl 50 mg IVP x1 and Solu-cortef 100 mg IVP every 8 hours. New order noted.
[2022-03-18] MEDS ORDERED: diphenhydrAMINE HCL 50 MG/ML VIAL IV ONE (23:30)
[2022-03-18 23:33] VITALS: BP 142/53
[2022-03-18] MEDS: HYDROCORTISONE SOD SUCCINATE 100 MG/2 ML VIAL IV SCH (23:45)
[2022-03-19] VITALS: BP 133/67
[2022-03-19] MEDS: ZOSYN IVPB 3.375 G in IV D5W 50ml IV SCH ×5 (00:38→23:02)
[2022-03-19] MEDS: VANCOMYCIN 500 MG in IV D5W 100 ML IV SCH ×2 (03:32→15:34)
[2022-03-19 04:00] VITALS: BP 117/56
[2022-03-19] MEDS: HYDROCORTISONE SOD SUCCINATE 100 MG/2 ML VIAL IV SCH ×3 (05:05→21:11)
[2022-03-19 07:12] LABS: BASOPHILS % (AUTO) 0.3 % (0.0-2.0); HEMATOCRIT 34 % (33-45); HEMOGLOBIN 10.6 g/dL (11.5-14.8); LYMPHOCYTES # (AUTO) 0.7 K/uL (0.8-4.8); LYMPHOCYTES % (AUTO) 4.9 % (20.0-44.0); MEAN CORPUSCULAR HGB CONC 31 g/dl (31.0-36.0); MEAN CORPUSCULAR VOLUME 98 fL (82-100); MONOCYTES # (AUTO) 0.2 K/uL (0.1-1.30); MONOCYTES % (AUTO) 1.7 % (2.0-12.0); NEUTROPHILS # (AUTO) 12.8 K/uL (1.8-8.9); NEUTROPHILS % (AUTO) 93.1 % (43.0-81.0); PLATELET COUNT (AUTO) 199 K/uL (150-450); RED BLOOD CELL COUNT(AUTO) 3.53 MIL/uL (4.0-5.2); WHITE BLOOD COUNT (AUTO) 13.8 K/uL (4.3-11.0)
--- NOTE | 2022-03-19 07:20 | NUR ---
RN OPENING NOTES RECEIVED PATIENT IN BED SLEEPING BUT EASY TO AROUSE,ALERT/ORIENTEDX1 WITH CONFUSION ON O2 AT 4LPM, TOLERATING WELL. NO SOB OR RESPIRATORY DISTRESS AT THIS TIME. ON TELE MONITOR READING SR 74. NO SIGN OF PAIN/DISCOMFORT AT THIS TIME. IV ACCESS NOTED ON LEFT HAND #22G, PATENT AND INTACT AND FLUSHES WELL, NO IVF RUNNING AT THE TIME. NOTED WITH MITTENS, NO SKIN INTEGRITY OR CIRCULATION ISSUES NOTED AT THE TIME. ALL SAFETY MEASURED IN PLACE, HOB ELEVATED, BED LOCKED AND IN LOWEST POSITION. CALL LIGHT WITHIN REACH. WILL CONTINUE TO MONITOR THROUGHOUT SHIFT.
[2022-03-19 07:59] LABS: CALCIUM, SERUM 8.9 mg/dL (8.5-10.1); CARBON DIOXIDE 20 mmol/L (21-32); CHLORIDE 105 mmol/L (98-107); CREATININE 0.7 mg/dL (0.6-1.3); GLUCOSE 225 mg/dL (74-106); MAGNESIUM 2.4 mg/dL (1.8-2.4); POTASSIUM 4.1 mmol/L (3.5-5.1); SODIUM SERUM 138 mmol/L (136-145); UREA NITROGEN, BLOOD 20 mg/dL (7-18)
[2022-03-19 08:00] VITALS: BP 119/59
[2022-03-19] MEDS: ASPIRIN 81 MG TAB.CHEW PO SCH (08:48)
[2022-03-19] MEDS: MELOXICAM 7.5 MG TABLET GT SCH (08:48)
[2022-03-19] MEDS: MEMANTINE HCL 5 MG TABLET GT SCH ×2 (08:49→17:34)
[2022-03-19] MEDS: APIXABAN 5 MG TABLET PO SCH ×2 (08:49→17:35)
[2022-03-19] MEDS: PANTOPRAZOLE 40 MG TABLET.DR PO SCH (08:49)
[2022-03-19 12:00] VITALS: BP 111/48
[2022-03-19 16:00] VITALS: BP 124/52
[2022-03-19] MEDS: MULTIVITAMINS,THERAGRAN 1 UDTAB TABLET GT SCH (17:34)
[2022-03-19] MEDS: FERROUS SULFATE UDC 300 MG/5 ML UDC GT SCH (17:34)
[2022-03-19] MEDS: JEVITY 1.2 CAL 1,000 ML BOTTLE GT PRN (17:39)
--- NOTE | 2022-03-19 19:02 | NUR ---
RN CLOSING NOTES NO SIGNIFICANT CHANGES ON PATIENT CONDITION THROUGHOUT SHIFT. PATIENT IN BED RESTING ALERT/ORIENTEDX1 WITH CONFUSION ON O2 AT 4LPM, TOLERATING WELL. NO SOB OR RESPIRATORY DISTRESS AT THIS TIME. NO SIGN OF PAIN/DISCOMFORT AT THIS TIME. IV ACCESS NOTED ON LEFT HAND #22G, PATENT AND INTACT AND FLUSHES WELL. NOTED WITH MITTENS, NO SKIN INTEGRITY OR CIRCULATION ISSUES NOTED THROUGHOUT SHIFT. ALL DUE MEDS GIVEN ORDERED. KEPT PATIENT CLEAN DRY AND COMFORTABLE. ALL NEEDS ATTENDED.ALL SAFETY MEASURED IN PLACE, HOB ELEVATED, BED LOCKED AND IN LOWEST POSITION. CALL LIGHT WITHIN REACH. WILL ENDORSE TO [employer] FLATBED DRIVER NURSE FOR CONTINUITY OF CARE.
--- NOTE | 2022-03-19 19:30 | NUR ---
RN Note Received patient in bed, sleeping, arousable to name and touch. Able to nod yes or no. Breathing even and unlabored. on 4L/min via nasal cannula, no sob noted. On telemetry monitoring. no s/s of distress. Skin warm and dry to touch. left hand 22g piv intact. no ivf infusing. TF infusing at 60 ml/hr. 10 ml residual HOB elevated 35 degrees. Bilateral mittens. Piur wick present. Suctioning yellow urine. No bleeding. Patient turned and repositioned. Bed low, in locked position. Will continue to monitor.
[2022-03-19 20:00] VITALS: BP 104/44
[2022-03-19] MEDS: SENNOSIDES 8.6 MG TABLET GT SCH (21:11)
[2022-03-19] MEDS: DONEPEZIL 5 MG TABLET GT SCH (21:11)
[2022-03-20] VITALS: BP 109/53
[2022-03-20 04:00] VITALS: BP 121/58
[2022-03-20] MEDS: VANCOMYCIN 500 MG in IV D5W 100 ML IV SCH (05:21)
[2022-03-20] MEDS: HYDROCORTISONE SOD SUCCINATE 100 MG/2 ML VIAL IV SCH ×3 (05:27→21:32)
[2022-03-20] MEDS: ZOSYN IVPB 3.375 G in IV D5W 50ml IV SCH ×3 (06:06→17:43)
[2022-03-20 06:53] LABS: CALCIUM, SERUM 8.6 mg/dL (8.5-10.1); CREATININE 0.9 mg/dL (0.6-1.3); POTASSIUM 3.4 mmol/L (3.5-5.1)
--- NOTE | 2022-03-20 07:35 | NUR ---
RN OPENING NOTES RECEIVED PATIENT IN BED SLEEPING BUT EASY TO AROUSE,ALERT/ORIENTEDX1 WITH CONFUSION ON O2 AT 2LPM, TOLERATING WELL. NO SOB OR RESPIRATORY DISTRESS AT THIS TIME. ON TELE MONITOR . NO SIGN OF PAIN/DISCOMFORT AT THIS TIME. IV ACCESS NOTED ON LEFT HAND #22G, PATENT AND INTACT AND FLUSHES WELL, NO IVF RUNNING AT THE TIME. NOTED WITH MITTENS, NO SKIN INTEGRITY OR CIRCULATION ISSUES NOTED AT THE TIME. ALL SAFETY MEASURED IN PLACE, HOB ELEVATED, BED LOCKED AND IN LOWEST POSITION. CALL LIGHT WITHIN REACH.
[2022-03-20 08:00] VITALS: BP 101/55
[2022-03-20] MEDS: MEMANTINE HCL 5 MG TABLET GT SCH ×2 (08:21→17:42)
[2022-03-20] MEDS: ASPIRIN 81 MG TAB.CHEW PO SCH (08:21)
[2022-03-20] MEDS: MELOXICAM 7.5 MG TABLET GT SCH (08:21)
[2022-03-20] MEDS: FUROSEMIDE 20 MG/2 ML VIAL IV SCH (08:21)
[2022-03-20] MEDS: APIXABAN 5 MG TABLET PO SCH ×2 (08:22→17:45)
[2022-03-20] MEDS: PANTOPRAZOLE 40 MG TABLET.DR PO SCH (08:23)
--- NOTE | 2022-03-20 09:43 | NUR ---
WOUND CARE CONSULT: PT REFUSED SKIN ASSESSMENT AND WAS SCREAMING AT STAFF. REVIEWED CHART, NURSING DOCUMENTATION AND PHOTOS WHICH INDICATE MULTIPLE AREAS OF SKIN DISCOLORATION/RASH/SKIN CONDITION WITH SCRATCH SIDDIQUI TO ARMS AND LEGS, PRESENT ON ADMISSION. DEFER TO PMD FOR SKIN CONDITION. RECOMMENDATIONS MADE FOR SKIN PROTECTION. DISCUSSED WITH NURSING STAFF. PT TO BE PLACED ON ISOFLEX LOW AIRLOSS BED. MD IN AGREEMENT WITH PLAN OF CARE.
[2022-03-20] MEDS ORDERED: POTASSIUM CHLORIDE 20 MEQ POWDER PACKET NG SCH (11:00)
[2022-03-20 16:00] VITALS: BP 105/45
[2022-03-20] MEDS: VANCOMYCIN HCL 0.75 GM in IV D5W 250 ML IV SCH (16:55)
[2022-03-20] MEDS: MULTIVITAMINS,THERAGRAN 1 UDTAB TABLET GT SCH (17:42)
[2022-03-20] MEDS: FERROUS SULFATE UDC 300 MG/5 ML UDC GT SCH (17:42)
--- NOTE | 2022-03-20 18:56 | NUR ---
RN CLOSING NOTES NO SIGNIFICANT CHANGES ON PATIENT CONDITION THROUGHOUT SHIFT. PATIENT IN BED RESTING ALERT/ORIENTEDX1 WITH CONFUSION ON O2 AT 2LPM, TOLERATING WELL. NO SOB OR RESPIRATORY DISTRESS AT THIS TIME. NO SIGN OF PAIN/DISCOMFORT AT THIS TIME. IV ACCESS NOTED ON RIGHT ARM #22G, PATENT AND INTACT AND FLUSHES WELL. NOTED WITH MITTENS, NO SKIN INTEGRITY OR CIRCULATION ISSUES NOTED THROUGHOUT SHIFT. KEPT PATIENT CLEAN DRY AND COMFORTABLE. ALL NEEDS ATTENDED.ALL SAFETY MEASURED IN PLACE, HOB ELEVATED, BED LOCKED AND IN LOWEST POSITION. CALL LIGHT WITHIN REACH. WILL ENDORSE TO LABORATORY EQUIPMENT INSTALLER NURSE FOR CONTINUITY OF CARE.
--- NOTE | 2022-03-20 19:35 | NUR ---
RN OPENING NOTES RECEIVED PATIENT IN BED, ALERT/ORIENTEDX1 WITH CONFUSION AND RESPONSIVE TO PAINFUL STIMULI. ON O2 AT 2L/MIN VIA N/C AND PT TOLERATING WELL. BREATHING EVEN AND UNLABORED. IV ACCESS ON NOTED ON RIGHT ARM #22G INTACT AND PATENT. NO S/S OF INFILTRATIONS. BILATERAL MITTENS ON. NO FACIAL GRIMACING NOTED. NO ACUTE DISTRESS. ALL SAFETY MEASURED IN PLACE, HOB ELEVATED, BED IN LOWEST POSITION AND LOCKED. PLACE CALL LIGHT WITHIN REACH. WILL CONTINUE TO MONITOR.
[2022-03-20 20:00] VITALS: BP 103/65
[2022-03-20] MEDS: DONEPEZIL 5 MG TABLET GT SCH (21:32)
[2022-03-20] MEDS: SENNOSIDES 8.6 MG TABLET GT SCH (21:32)
[2022-03-21] VITALS: BP 139/57
[2022-03-21] MEDS: ZOSYN IVPB 3.375 G in IV D5W 50ml IV SCH ×4 (00:12→17:51)
[2022-03-21] MEDS: VANCOMYCIN HCL 0.75 GM in IV D5W 250 ML IV SCH ×2 (03:53→16:19)
[2022-03-21] MEDS: JEVITY 1.2 CAL 1,000 ML BOTTLE GT PRN (03:59)
[2022-03-21 04:00] VITALS: BP 146/79
--- NOTE | 2022-03-21 06:35 | NUR ---
RN CLOSING NOTES PATIENT IN BED, ALERT/ORIENTEDX1 WITH CONFUSION AND RESPONSIVE TO PAINFUL STIMULI. ON O2 AT 2L/MIN VIA N/C AND PT TOLERATING WELL. BREATHING EVEN AND UNLABORED. IV ACCESS ON NOTED ON RIGHT ARM #22G INTACT AND PATENT. NO S/S OF INFILTRATIONS. BILATERAL MITTENS ON. RELEASED Q 2HOURS TO CHECK CIRCULATION. NO FACIAL GRIMACING NOTED. NO ACUTE DISTRESS. ALL DUE MEDS GIVEN ORDERED. ALL SAFETY MEASURED IN PLACE, HOB ELEVATED, BED IN LOWEST POSITION AND LOCKED. PLACE CALL LIGHT WITHIN REACH. WILL ENDORSE TO MORNING SHIFT NURSE.
--- NOTE | 2022-03-21 07:20 | NUR ---
RN OPENING NOTES RECEIVED PATIENT IN BED SLEEPING AROUSES EASILY, ALERT/ORIENTEDX1 WITH CONFUSION ON O2 AT 2LPM, TOLERATING WELL. BREATHING UNLABORED. NO SOB OR RESPIRATORY DISTRESS AT THIS TIME. ON TELE MONITOR READING NSR WITH HR OF 62. NO SIGN OF PAIN/DISCOMFORT AT THIS TIME. IV ACCESS NOTED ON RIGHT ARM #22G PATENT AND INTACT AND FLUSHES WELL, NO IVF RUNNING AT THE TIME. NOTED WITH MITTENS, NO SKIN INTEGRITY OR CIRCULATION ISSUES NOTED AT THE TIME. ALL SAFETY MEASURED IN PLACE, HOB ELEVATED, BED LOCKED AND IN LOWEST POSITION. CALL LIGHT WITHIN REACH. WILL CONTINUE TO MONITOR THROUGHOUT SHIFT.
[2022-03-21 07:37] LABS: CALCIUM, SERUM 8.3 mg/dL (8.5-10.1); CARBON DIOXIDE 26 mmol/L (21-32); CHLORIDE 106 mmol/L (98-107); CREATININE 0.8 mg/dL (0.6-1.3); GLUCOSE 214 mg/dL (74-106); POTASSIUM 3.2 mmol/L (3.5-5.1); SODIUM SERUM 142 mmol/L (136-145); UREA NITROGEN, BLOOD 49 mg/dL (7-18)
[2022-03-21 08:00] VITALS: BP 102/51
[2022-03-21] MEDS: MELOXICAM 7.5 MG TABLET GT SCH (08:45)
[2022-03-21] MEDS: ASPIRIN 81 MG TAB.CHEW PO SCH (08:45)
[2022-03-21] MEDS: HYDROCORTISONE SOD SUCCINATE 100 MG/2 ML VIAL IV SCH (08:46)
[2022-03-21] MEDS: FUROSEMIDE 20 MG/2 ML VIAL IV SCH (08:46)
[2022-03-21] MEDS: PANTOPRAZOLE 40 MG TABLET.DR PO SCH (08:46)
[2022-03-21] MEDS: MEMANTINE HCL 5 MG TABLET GT SCH ×2 (08:47→17:51)
[2022-03-21] MEDS: APIXABAN 5 MG TABLET PO SCH ×2 (08:50→17:52)
[2022-03-21] MEDS ORDERED: POTASSIUM CHLORIDE 20 MEQ POWDER PACKET GT SCH (10:00)
[2022-03-21 12:00] VITALS: BP 134/52
[2022-03-21 16:00] VITALS: BP 131/41
[2022-03-21] MEDS: MULTIVITAMINS,THERAGRAN 1 UDTAB TABLET GT SCH (17:51)
[2022-03-21] MEDS: FERROUS SULFATE UDC 300 MG/5 ML UDC GT SCH (17:51)
--- NOTE | 2022-03-21 19:30 | NUR ---
RN NOTE RECEIVED PATIENT IN BED, AO X 1, NON VERBAL, IN NO ACUTE DISTRESS, BREATHING UNLABORED, SATURATION AT 96% ON 32 VIA NC, SR ON THE MONITOR, HR IS 74. IV LINE AT RFA 22G PATENT AND FLUSHING WELL, SALINE LOCKED. B WRIST ON MITTENS, SKIN AND CIRCULATION CHECKED AND ARE WNL. GTUBE INTACT, POSITIVE PLACEMENT NOTED, WITH TUBE FEEDING OF JEVITY AT 60 ML/HR. SAFETY MEASURES IN PLACE, BED IS LOCKED AND AT LOWEST POSITION, BED ALARM ON, SIDE RAILS UP X 2, CALL LIGHT WITHIN REACH OF PATIENT. WILL CONT TO MONITOR AND REASSESS.
--- NOTE | 2022-03-21 19:33 | NUR ---
RN CLOSING NOTES NO SIGNIFICANT CHANGES ON PATIENT CONDITION THROUGHOUT SHIFT. PATIENT IN BED AWAKE ALERT/ORIENTEDX1 WITH CONFUSION ON O2 AT 2LPM, TOLERATING WELL. BREATHING UNLABORED. NO SOB OR RESPIRATORY DISTRESS AT THIS TIME. NO SIGN OF PAIN/DISCOMFORT AT THIS TIME. IV ACCESS NOTED ON RIGHT ARM #22G PATENT AND INTACT. NOTED WITH MITTENS, NO SKIN INTEGRITY OR CIRCULATION ISSUES NOTED THROUGHOUT SHIFT. ALL DUE MEDS GIVEN ORDERED. KEPT PATIENT CLEAN DRY AND COMFORTABLE. ALL NEEDS ATTENDED. ALL SAFETY MEASURED IN PLACE, HOB ELEVATED, BED LOCKED AND IN LOWEST POSITION. CALL LIGHT WITHIN REACH. ENDORSED TO SUPERVISOR [employer]YROLL NURSE FOR PHI.
[2022-03-21 20:00] VITALS: BP 126/59
[2022-03-21] MEDS: SENNOSIDES 8.6 MG TABLET GT SCH (21:35)
[2022-03-21] MEDS: DONEPEZIL 5 MG TABLET GT SCH (21:35)
[2022-03-22] VITALS: BP 117/81
--- NOTE | 2022-03-22 00:30 | NUR ---
RN NOTES RECEIVED REPORT FROM JESUS MANUEL. PATIENT IN BED A/O X1. ON NASAL CANULA @ 2LPM SATING 98%. NO SOB NO DISTRESS NOTED AT THIS TIME. WITH GT PATENT AND INTACT ON CONTINUOS GT FEEDING TOLERATING WELL NO GASTRIC RESIDUAL NOTED AT THIS TIME. ALL SAFETY MEASURES IN PLACE AT ALL TIMES, HOB ELEVATED. CALL LIGHT WITHIN REACH. WILL CLOSELY MONITOR THE PATIENT
--- NOTE | 2022-03-22 00:30 | NUR ---
RN NOTE REPORT GIVEN TO FREDDY HERNÁNDEZ FOR CONTINUATION OF CARE
[2022-03-22] MEDS: ZOSYN IVPB 3.375 G in IV D5W 50ml IV SCH ×3 (00:59→12:03)
[2022-03-22] MEDS: VANCOMYCIN HCL 0.75 GM in IV D5W 250 ML IV SCH (03:50)
[2022-03-22 04:00] VITALS: BP 121/61
[2022-03-22] MEDS: JEVITY 1.2 CAL 1,000 ML BOTTLE GT PRN (04:13)
[2022-03-22 06:19] LABS: CALCIUM, SERUM 8.2 mg/dL (8.5-10.1); CREATININE 0.7 mg/dL (0.6-1.3); POTASSIUM 3.2 mmol/L (3.5-5.1)
--- NOTE | 2022-03-22 06:44 | NUR ---
RN NOTES PATIENT IN BED, ALERT/ORIENTEDX1 WITH CONFUSION AND RESPONSIVE TO TACTILE STIMULI. ON O2 AT 2L/MIN VIA N/C AND PT TOLERATING WELL. BREATHING EVEN AND UNLABORED. IV ACCESS ON NOTED ON RIGHT ARM #22G INTACT AND PATENT. NO S/S OF INFILTRATIONS. BILATERAL MITTENS ON. RELEASED Q 2HOURS TO CHECK CIRCULATION. NO FACIAL GRIMACING NOTED. NO ACUTE DISTRESS. ALL DUE MEDS GIVEN ORDERED. ALL SAFETY MEASURED IN PLACE, HOB ELEVATED, BED IN LOWEST POSITION AND LOCKED. PLACE CALL LIGHT WITHIN REACH. WILL ENDORSE TO MORNING SHIFT NURSE.
--- NOTE | 2022-03-22 07:16 | NUR ---
RN OPENING NOTES PATIENT IN BED, ALERT/ORIENTED X 1 NONVERBAL. ON O2 AT 2L/MIN VIA N/C AND PT TOLERATING WELL. BREATHING EVEN AND UNLABORED. IV ACCESS ON NOTED ON RIGHT ARM #22G INTACT AND PATENT. NO S/S OF INFILTRATIONS. BILATERAL MITTENS ON. RELEASED Q 2HOURS TO CHECK CIRCULATION. NO FACIAL GRIMACING NOTED. NO ACUTE DISTRESS. ALL SAFETY MEASURED IN PLACE, HOB ELEVATED, BED IN LOWEST POSITION AND LOCKED. PLACE CALL LIGHT WITHIN REACH. WILL CONTINUE PLAN OF CARE AND ANTICIPATE NEEDS.
[2022-03-22] MEDS: PANTOPRAZOLE 40 MG TABLET.DR PO SCH (07:51)
[2022-03-22 08:00] VITALS: BP 118/52
[2022-03-22] MEDS: ASPIRIN 81 MG TAB.CHEW PO SCH (08:15)
[2022-03-22] MEDS: MELOXICAM 7.5 MG TABLET GT SCH (08:15)
[2022-03-22] MEDS: MEMANTINE HCL 5 MG TABLET GT SCH (08:15)
[2022-03-22] MEDS: APIXABAN 5 MG TABLET PO SCH (08:17)
[2022-03-22] MEDS ORDERED: FUROSEMIDE 20 MG TABLET PO SCH (09:00)
[2022-03-22] MEDS ORDERED: HYDROCORTISONE SOD SUCCINATE 100 MG/2 ML VIAL IV SCH (09:00)
[2022-03-22] MEDS ORDERED: POTASSIUM CHLORIDE 20 MEQ POWDER PACKET GT SCH (10:00)
--- NOTE | 2022-03-22 13:50 | NUR ---
RN CLOSING NOTE PATIENT DISCHARGED TO [facility] VIA AMBULANCE, IN STABLE CONDITION. A0X1, NON VERBAL. PATIENT HAS 1 GOWN BELONGING. CALLED AND REPORT GIVEN TO BETTY ALBRIGHT AT [facility], SHE REQUESTED TO KEEP RFA #22G IV ACCESS INTACT. CALLED FAMILY MEMBER CONTACTS, AND BOTH WERE NON WORKING NUMBERS, NOTIFIED JOSE RAMON. EXIT FOLDER HANDED TO AMBULANCE CREW. PATIENT LEFT VIA GURNEY. CHARGE NURSE AWARE OF DISCHARGE.
[2022-03-23] MEDS ORDERED: HYDROCORTISONE SOD SUCCINATE 100 MG/2 ML VIAL IV SCH (09:00)
== END 2022-03-22 20:07 | DRG 177 ==
LOC: ER 12:58 → TELE 15:40 → TELE1 22:21 → TELE-TD 22:24 → TELE1 03-20 09:34
PROVIDERS: ADMIT Internal Medicine; ATTEND Nurse Practitioner Acute Care
DX: J15.6 Pneumonia due to other Gram-negative bacteria (principal); E43 Unspecified severe protein-calorie malnutrition; G93.41 Metabolic encephalopathy; I21.A1 Myocardial infarction type 2; J96.01 Acute respiratory failure with hypoxia; N17.0 Acute kidney failure with tubular necrosis; I50.43 Acute on chronic combined systolic (congestive) and diastolic (congestive) heart failure; R64 Cachexia; D68.59 Other primary thrombophilia; Z68.1 Body mass index [BMI] 19.9 or less, adult; I48.20 Chronic atrial fibrillation, unspecified; F02.80 Dementia in other diseases classified elsewhere, unspecified severity, without behavioral disturbance, psychotic disturbance, mood disturbance, and anxiety; G30.9 Alzheimer's disease, unspecified; Z79.899 Other long term (current) drug therapy; Z86.16 Personal history of COVID-19; Z93.1 Gastrostomy status; M81.0 Age-related osteoporosis without current pathological fracture; R26.9 Unspecified abnormalities of gait and mobility; R27.8 Other lack of coordination; R13.10 Dysphagia, unspecified; F41.9 Anxiety disorder, unspecified; G62.9 Polyneuropathy, unspecified; Z88.8 Allergy status to other drugs, medicaments and biological substances; D63.8 Anemia in other chronic diseases classified elsewhere; I35.0 Nonrheumatic aortic (valve) stenosis; E87.6 Hypokalemia; Y95 Nosocomial condition; Z74.09 Other reduced mobility; E88.09 Other disorders of plasma-protein metabolism, not elsewhere classified; K44.9 Diaphragmatic hernia without obstruction or gangrene; R62.7 Adult failure to thrive
CPT/HCPCS: 36415; 71045-TC; 80048-TC; 80202-TC; 81001; 82962-TC; 83605-TC; 83735-TC; 83880; 84100-TC; 84484-TC; 85025-TC; 87040-TC; 87086-TC; 93307-TC; 94799-TC; C9803; G0378; J0282; J0692; J1200; J1650; J1720; J1940; J2543; J3370; J7050; J7060